=== PATIENT | male | born 1960 | race African-American/Black ===

== ENCOUNTER 2019-07-25 22:10 | Inpatient (IN) ==
[2019-07-25] MEDS ORDERED: DEXAMETHASONE **PF** INJ 10 MG/ML VIAL IV ONE (22:24)
[2019-07-25] MEDS ORDERED: ALBUT/IPRATROP 3MG/0.5MG NEB 3 ML VIAL NEB STA (22:24)
[2019-07-25] MEDS ORDERED: SODIUM CHLORIDE 0.9% 1000ML 1,000 ML IV ONE (22:26)
[2019-07-25] MEDS ORDERED: PIPERACILL/TAZOBAC CONSULT ACTIVE PRN (22:42)
[2019-07-25] MEDS ORDERED: SODIUM CHLORIDE 0.9% 1000ML 500 ML IV ONE (22:42)
[2019-07-25] MEDS ORDERED: PIPERACILLIN/TAZOBACTAM 4.5 GM/120 ML BAG IV ONE (22:42)
--- NOTE | 2019-07-25 22:43 | XRay Report ---
XR chest 1V portable HISTORY: 58 years-old Male Sepsis acute sepsis COMPARISON: None available TECHNIQUE: Portable AP view of the chest FINDINGS: Cardiac silhouette is mildly enlarged. Diffuse mixed interstitial and alveolar opacities with probabl e trace pleural effusions. No pneumothorax. Degenerative changes of the shoulders and spine. IMPRESSION: 1. Cardiomegaly with diffuse bilateral mixed interstitial and alveolar opacities suggests pulmonary e tunde versus multifocal pneumonia. 2. Probable trace pleural effusions. ACT 112: Negative or not required by law. The above report was generated using voice recognition software. It may contain grammatical, syntax o r spelling errors. Electronically signed by: Chung Mi M.D. 07/25/2019 10:42 PM
[2019-07-25 23:00] LABS: iSTAT Creatinine 2.7 mg/dl (0.6-1.3); iSTAT Hemoglobin 14.6 g/dl (14.0-18.0); iSTAT Ionized Calcium 1.06 mmol/l (1.12-1.32); iSTAT Potassium 4.1 mEq/L (3.3-5.0)
[2019-07-25 23:00] LABS: Basophils # (auto) 0.01 K/uL (0-0.2); Basophils % (auto) 0.1 %; Eosinophils # (auto) 0.03 K/uL (0-0.5); Eosinophils % (auto) 0.3 %; Hematocrit (blood only) 43.2 % (42-52); Hemoglobin 14.8 g/dL (14.0-18.0); Immature Granulocytes # (auto) 0.02 K/uL (0.00-0.02); Immature Granulocytes % (auto) 0.2 %; Lymphocytes # (auto) 1.06 K/uL (1.2-3.4); Lymphocytes % (auto) 10.1 %; Mean Corpuscular Hgb Conc 34.3 g/dL (32-36); Mean Corpuscular Volume 84.7 fL (80-100); Mean Platelet Volume 11.3 fL (7.4-10.4); Monocytes # (auto) 1.02 K/uL (0.11-0.59); Monocytes % (auto) 9.8 %; Neutrophils # (auto) 8.32 K/uL (1.4-6.5); Neutrophils % (auto) 79.5 %; Platelet Count 225 K/uL (130-400); RDW Coefficient of Variation 14.9 % (11.5-14.5); RDW Standard Deviation 46.1 fL (36.4-46.3); White Blood Count 10.46 K/uL (4.8-10.8)
[2019-07-25 23:10] LABS: INR 1.1 (0.9-1.1); Partial Thromboplastin Ratio 0.8; Partial Thromboplastin Time 22.9 Seconds (21.0-31.0); Prothrombin Time 10.8 Seconds (9.0-12.0)
[2019-07-25 23:14] LABS: Albumin Level 3.6 gm/dl (3.4-5.0); BUN Creatinine Ratio 8.2 (10-20); Creatinine Clr Calc Pharmacy 32.9 ml/min; Est GFR (African American) 27.9; Est GFR (Non-African American) 24.1; Magnesium 2.1 mg/dl (1.8-2.4)
--- NOTE | 2019-07-25 23:19 | Emergency Department Note ---
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 This has improved. Patient states a few years ago he had an episode of sarcoidosis and had breathing problems but not this severe. Patient has been coughing more. Patient denies fever, chills, abdominal pain, history of PE or heart attack. He states his legs have been feeling more tight lately. Patient denies tobacco alcohol or drug use. Home Medications Home Medications Medication Instructions Recorded Confirmed Type bvvadrkboqs-bqzrsiqaogh-apduij 0 ea PO DIRECTED PRN 07/25/19 07/25/19 History [Patito-Cranfills Gap Plus Cold (PE)] dextromethorphan-guaifenesin 10 ml PO DIRECTED PRN 07/25/19 07/25/19 History [Robitussin Cough-Chest [place] DM] Allergies Allergy/AdvReac Type Severity Reaction Status Date / Time No Known Allergies Allergy Verified 07/25/19 22:39 Past Med/Surg History Social History Feels Safe at Home: Yes Smoking Status: Never smoker Review of Systems A total of 10 systems reviewed and were otherwise negative Physical Exam Vital Signs Vital Signs - 24 hr 07/25/19 22:19 07/25/19 22:23 07/25/19 22:26 Temperature 36.7 C Temperature Source Oral Pulse Rate 119 H 118 H 111 H Pulse Rate [Finger] Pulse Rate from SpO2 Sensor 116 H Respiratory Rate 42 H 23 Respiratory Effort / Characteristics Spontaneous Accessory Muscle Use Labored Short of Breath SOB on Exertion Tripoding Accessory Muscle Use Gasping/Agonal Labored Respiratory Depth Shallow Respiratory Pattern Tachypnea Blood Pressure 191/117 H Blood Pressure Mean 141 Pulse Oximetry 63 L 91 93 Oxygen Delivery Method Room Air Non-rebreather Oxygen Flow Rate 15 Sepsis Recent Fever Within 48 Hours No Sepsis Action Taken by Nursing No Action Required 07/25/19 22:30 07/25/19 22:31 07/25/19 22:38 Temperature Temperature Source Pulse Rate 116 H 112 H Pulse Rate [Finger] 113 H Pulse Rate from SpO2 Sensor 116 H 113 H Respiratory Rate 29 H 32 H 32 H Respiratory Effort / Characteristics Spontaneous Short of Breath Respiratory Depth Respiratory Pattern Blood Pressure 168/107 H Blood Pressure Mean 133 Pulse Oximetry 90 89 L 95 Oxygen Delivery Method Non-rebreather Oxygen Flow Rate 15 Sepsis Recent Fever Within 48 Hours Sepsis Action Taken by Nursing 07/25/19 22:45 07/25/19 23:08 07/25/19 23:10 Temperature Temperature Source Pulse Rate 108 H 115 H Pulse Rate [Finger] Pulse Rate from SpO2 Sensor 109 H 122 H 110 H Respiratory Rate 38 H 34 H Respiratory Effort / Characteristics Respiratory Depth Respiratory Pattern Blood Pressure 202/120 H Blood Pressure Mean 142 Pulse Oximetry 93 84 L 92 Oxygen Delivery Method Oxymask Oxygen Flow Rate 10 Sepsis Recent Fever Within 48 Hours Sepsis Action Taken by Nursing 07/25/19 23:15 07/25/19 23:16 07/25/19 23:17 Temperature Temperature Source Pulse Rate 109 H 106 H 107 H Pulse Rate [Finger] Pulse Rate from SpO2 Sensor 109 H 105 H 106 H Respiratory Rate 25 H 43 H 25 H Respiratory Effort / Characteristics Respiratory Depth Respiratory Pattern Blood Pressure 186/109 H Blood Pressure Mean 131 Pulse Oximetry 94 94 94 Oxygen Delivery Method Oxymask Oxymask Oxygen Flow Rate 10 10 Sepsis Recent Fever Within 48 Hours Sepsis Action Taken by Nursing 07/25/19 23:19 07/25/19 23:30 07/25/19 23:31 Temperature Temperature Source Pulse Rate 109 H 109 H Pulse Rate [Finger] Pulse Rate from SpO2 Sensor 110 H 107 H Respiratory Rate 39 H 39 H Respiratory Effort / Characteristics Respiratory Depth Respiratory Pattern Blood Pressure 199/123 H Blood Pressure Mean 140 Pulse Oximetry 94 94 93 Oxygen Delivery Method Oxymask Oxygen Flow Rate 10 Sepsis Recent Fever Within 48 Hours Sepsis Action Taken by Nursing 07/25/19 23:50 07/26/19 00:00 07/26/19 00:15 Temperature Temperature Source Pulse Rate 110 H Pulse Rate [Finger] Pulse Rate from SpO2 Sensor 110 H 102 H 96 H Respiratory Rate 28 H 38 H 22 Respiratory Effort / Characteristics Respiratory Depth Respiratory Pattern Blood Pressure Blood Pressure Mean Pulse Oximetry 88 L 93 94 Oxygen Delivery Method Oxygen Flow Rate Sepsis Recent Fever Within 48 Hours Sepsis Action Taken by Nursing 07/26/19 00:20 12/30/19 00:30 07/26/19 00:46 Temperature Temperature Source Pulse Rate 100 H 98 H Pulse Rate [Finger] Pulse Rate from SpO2 Sensor 101 H 102 H 99 H Respiratory Rate 18 27 H 25 H Respiratory Effort / Characteristics Respiratory Depth Respiratory Pattern Blood Pressure 169/107 H 178/106 H 196/116 H Blood Pressure Mean 123 124 138 Pulse Oximetry 93 91 93 Oxygen Delivery Method Oxymask Oxymask Oxygen Flow Rate 10 10 Sepsis Recent Fever Within 48 Hours Sepsis Action Taken by Nursing 07/26/19 01:00 07/26/19 01:15 Temperature Temperature Source Pulse Rate 88 87 Pulse Rate [Finger] Pulse Rate from SpO2 Sensor 89 88 Respiratory Rate 33 H 33 H Respiratory Effort / Characteristics Respiratory Depth Respiratory Pattern Blood Pressure 170/103 H 179/107 H Blood Pressure Mean 116 119 Pulse Oximetry 95 93 Oxygen Delivery Method Oxymask Oxymask Oxygen Flow Rate 10 10 Sepsis Recent Fever Within 48 Hours Sepsis Action Taken by Nursing VITALS: Vitals are noted on the nurse's note and reviewed by myself. Vital signs sats in the 60s. GENERAL: Male working to breathe in acute distress SKIN: The skin was without rashes, erythema, edema, or bruising. There is no tenting of the skin. Capillary reflex less than 2 seconds. HEAD: Normocephalic atraumatic. EARS: External auditory canals clear, tympanic membranes pearly mars without erythema or effusion bilaterally. EYES: Pupils equal round and reactive to light and accommodation. Conjunctivae without injection, sclerae without icterus. Extraocular movements intact. NOSE: Patent, turbinates without inflammation or discharge. No sinus te nderness. MOUTH: Mucous membranes mildly dry. Pharynx without erythema or exudate. Uvula midline. Airway patent. Tongue does not deviate. NECK: Supple without nuchal rigidity. No lymphadenopathy. No thyromegaly. Cervical spine is nontender. No JVD. HEART: Tachycardic rate and rhythm LUNGS: Diffuse inspiratory and end expiratory wheezes, + retractions + accessory muscle use. ABDOMEN: Positive bowel sounds x 4. Normal tympanic percussion. Soft, nontender, without masses or organomegaly. Reid sign negative. No guarding or rebound tenderness. No CVA tenderness MUSCULOSKELETAL: No muscle atrophy, erythema, or edema noted. NEURO: Patient was alert and oriented to person place and time. Normal sensation to light and sharp touch. No focal neurological deficits. Course Administered Medications Discontinued Medications Albuterol (Duoneb) 3 ml NEB NOW STA Stop: 07/25/19 22:25 Last Admin: 07/25/19 22:38 Dose: 3 ml Documented by: [id number] Dexamethasone Sodium Phosphate (Decadron Pf) 10 mg IV NOW ONE Stop: 07/25/19 22:25 Last Admin: 07/25/19 22:35 Dose: 10 mg Documented by: [id number] Sodium Chloride (Nss 1000ml) 1,000 mls @ 999 mls/hr IV .Q1H1M ONE Stop: 07/25/19 23:26 Last Admin: 07/26/19 00:08 Dose: Not Given Documented by: [id number] Sodium Chloride (Nss 1000ml) 500 mls @ 999 mls/hr IV .Q31M ONE Stop: 07/25/19 23:12 Last Infusion: 07/26/19 00:07 Dose: 0 mls/hr Documented by: [id number] Admin: 07/25/19 23:13 Dose: 999 mls/hr Documented by: [id number] Piperacillin Sod/Tazobactam Sod (Zosyn) 4.5 gm in 120 mls @ 240 mls/hr IV NOW ONE Stop: 07/25/19 23:11 Last Infusion: 07/26/19 00:07 Dose: 0 mls/hr Documented by: [id number] Admin: 07/25/19 23:26 Dose: 240 mls/hr Documented by: [id number] Critical Care Time Critical Care Time: Yes Total Critical Care Time: 30 I have personally spent greater than 30 minutes of critical care time in the direct management of this patient. This includes bedside care, interpretation of diagnostic studies, and testing, discussion with consultants, patient, and family members, and other required patient management activities. This 30 minutes is in excess of all separately billable procedures. Medical Decision Making Medical Records Attestation: I reviewed the patient's medical records. Home Medications Current Medication List: was personally reviewed by me Laboratory Data Attestation: I reviewed the patient's lab results. Result diagrams: 07/25/19 22:35 07/25/19 22:35 Lab Results 07/25/19 07/25/19 07/25/19 Range/Units 22:35 22:35 22:35 WBC 10.46 (4.8-10.8) K/uL RBC 5.10 (4.7-6.1) M/uL Hgb 14.8 (14.0-18.0) g/dL POC Hgb (14.0-18.0) g/dl Hct 43.2 (42-52) % POC Hct (42-52) % MCV 84.7 (80-100) fL MCH 29.0 (25-34) pg MCHC 34.3 (32-36) g/dL RDW Std Deviation 46.1 (36.4-46.3) fL RDW Coeff of Tal 14.9 H (11.5-14.5) % Plt Count 225 (130-400) K/uL MPV 11.3 H (7.4-10.4) fL Immature Gran % (Auto) 0.2 % Neut % (Auto) 79.5 % Lymph % (Auto) 10.1 % Barnwell % (Auto) 9.8 % Eos % (Auto) 0.3 % Baso % (Auto) 0.1 % Immature Gran # (Auto) 0.02 (0.00-0.02) K/uL Neut # (Auto) 8.32 H (1.4-6.5) K/uL Lymph # (Auto) 1.06 L (1.2-3.4) K/uL Barnwell # (Auto) 1.02 H (0.11-0.59) K/uL Eos # (Auto) 0.03 (0-0.5) K/uL Baso # (Auto) 0.01 (0-0.2) K/uL PT 10.8 (9.0-12.0) Seconds INR 1.1 (0.9-1.1) APTT 22.9 (21.0-31.0) Seconds PTT Ratio 0.8 ABG pH ABG pCO2 ABG pO2 ABG HCO3 ABG O2 Saturation ABG Base Excess Alexx Test Barometric Pressure Oxygen Given POC Sodium (135-144) mEq/L Sodium 145 (136-145) mmol/L POC Potassium (3.3-5.0) mEq/L Potassium 4.0 (3.5-5.1) mmol/L POC Chloride (101-112) mEq/L Chloride 113 H (98-107) mmol/L Carbon Dioxide 21 (21-32) mmol/L POC Total CO2 (24-31) mEq/l Anion Gap 11.0 (3-11) POC Anion Gap (16-25) mmol/L POC BUN (7-18) mg/dl BUN 23 H (7-18) mg/dl Creatinine 2.79 H (0.6-1.4) mg/dl POC Creatinine (0.6-1.3) mg/dl Est Cr Clr Drug Dosing 32.9 ml/min Est GFR ( Amer) 27.9 Est GFR (Non-Af Amer) 24.1 BUN/Creatinine Ratio 8.2 L (10-20) Glucose 134 H (70-99) mg/dl POC Glucose (other) (70-99) mg/dl POC Lactic Acid Néstor (0.90-1.70) mmol/L Calcium 9.0 (8.5-10.1) mg/dl POC Ioniz Calcium Tata (1.12-1.32) mmol/l Magnesium 2.1 (1.8-2.4) mg/dl Total Bilirubin 0.9 (0.2-1) mg/dl AST 31 (15-37) U/L ALT 57 (12-78) U/L Alkaline Phosphatase 100 (45-117) U/L Total Creatine Kinase 194 (39-308) U/L Troponin I 0.059 H* (0-0.045) ng/ml NT-Pro-B Natriuret Pep 2302 H (0-900) pg/ml Total Protein 8.1 (6.4-8.2) gm/dl Albumin 3.6 (3.4-5.0) gm/dl Globulin 4.5 H (2.5-4.0) gm/dl Albumin/Globulin Ratio 0.8 L (0.9-2) Specimen Hemolysis IgG 1160.0 (700-1600) mg/dl IgA 193.0 (70-400) mg/dl IgM 147.0 (40-230) mg/dl Influenza Type A (PCR) (Neg) Influenza Type B (PCR) (Neg) 07/25/19 07/25/19 07/25/19 Range/Units 22:42 22:47 23:25 WBC (4.8-10.8) K/uL RBC (4.7-6.1) M/uL Hgb (14.0-18.0) g/dL POC Hgb 14.6 (14.0-18.0) g/dl Hct (42-52) % POC Hct 43 (42-52) % MCV (80-100) fL MCH (25-34) pg MCHC (32-36) g/dL RDW Std Deviation (36.4-46.3) fL RDW Coeff of Tal (11.5-14.5) % Plt Count (130-400) K/uL MPV (7.4-10.4) fL Immature Gran % (Auto) % Neut % (Auto) % Lymph % (Auto) % Barnwell % (Auto) % Eos % (Auto) % Baso % (Auto) % Immature Gran # (Auto) (0.00-0.02) K/uL Neut # (Auto) (1.4-6.5) K/uL Lymph # (Auto) (1.2-3.4) K/uL Barnwell # (Auto) (0.11-0.59) K/uL Eos # (Auto) (0-0.5) K/uL Baso # (Auto) (0-0.2) K/uL PT (9.0-12.0) Seconds INR (0.9-1.1) APTT (21.0-31.0) Seconds PTT Ratio ABG pH Cancelled ABG pCO2 Cancelled ABG pO2 Cancelled ABG HCO3 Cancelled ABG O2 Saturation Cancelled ABG Base Excess Cancelled Alexx Test Cancelled Barometric Pressure Cancelled Oxygen Given Cancelled POC Sodium 146 H (135-144) mEq/L Sodium (136-145) mmol/L POC Potassium 4.1 (3.3-5.0) mEq/L Potassium (3.5-5.1) mmol/L POC Chloride 115 H (101-112) mEq/L Chloride (98-107) mmol/L Carbon Dioxide (21-32) mmol/L POC Total CO2 21 L (24-31) mEq/l Anion Gap (3-11) POC Anion Gap 15.0 L (16-25) mmol/L POC BUN 27 H (7-18) mg/dl BUN (7-18) mg/dl Creatinine (0.6-1.4) mg/dl POC Creatinine 2.7 H (0.6-1.3) mg/dl Est Cr Clr Drug Dosing ml/min Est GFR ( Amer) Est GFR (Non-Af Amer) BUN/Creatinine Ratio (10-20) Glucose (70-99) mg/dl POC Glucose (other) 130 H (70-99) mg/dl POC Lactic Acid Néstor 2.28 H (0.90-1.70) mmol/L Calcium (8.5-10.1) mg/dl POC Ioniz Calcium Tata 1.06 L (1.12-1.32) mmol/l Magnesium (1.8-2.4) mg/dl Total Bilirubin (0.2-1) mg/dl AST (15-37) U/L ALT (12-78) U/L Alkaline Phosphatase (45-117) U/L Total Creatine Kinase (39-308) U/L Troponin I (0-0.045) ng/ml NT-Pro-B Natriuret Pep (0-900) pg/ml Total Protein (6.4-8.2) gm/dl Albumin (3.4-5.0) gm/dl Globulin (2.5-4.0) gm/dl Albumin/Globulin Ratio (0.9-2) Specimen Hemolysis IgG (700-1600) mg/dl IgA (70-400) mg/dl IgM (40-230) mg/dl Influenza Type A (PCR) (Neg) Influenza Type B (PCR) (Neg) 07/25/19 07/26/19 Range/Units Unknown 00:16 WBC (4.8-10.8) K/uL RBC (4.7-6.1) M/uL Hgb (14.0-18.0) g/dL POC Hgb (14.0-18.0) g/dl Hct (42-52) % POC Hct (42-52) % MCV (80-100) fL MCH (25-34) pg MCHC (32-36) g/dL RDW Std Deviation (36.4-46.3) fL RDW Coeff of Tal (11.5-14.5) % Plt Count (130-400) K/uL MPV (7.4-10.4) fL Immature Gran % (Auto) % Neut % (Auto) % Lymph % (Auto) % Barnwell % (Auto) % Eos % (Auto) % Baso % (Auto) % Immature Gran # (Auto) (0.00-0.02) K/uL Neut # (Auto) (1.4-6.5) K/uL Lymph # (Auto) (1.2-3.4) K/uL Barnwell # (Auto) (0.11-0.59) K/uL Eos # (Auto) (0-0.5) K/uL Baso # (Auto) (0-0.2) K/uL PT (9.0-12.0) Seconds INR (0.9-1.1) APTT (21.0-31.0) Seconds PTT Ratio ABG pH 7.50 H ABG pCO2 28 L ABG pO2 70 L ABG HCO3 22 ABG O2 Saturation 95.0 ABG Base Excess -0.4 Alexx Test Pos Barometric Pressure Oxygen Given 10L POC Sodium (135-144) mEq/L Sodium (136-145) mmol/L POC Potassium (3.3-5.0) mEq/L Potassium (3.5-5.1) mmol/L POC Chloride (101-112) mEq/L Chloride (98-107) mmol/L Carbon Dioxide (21-32) mmol/L POC Total CO2 (24-31) mEq/l Anion Gap (3-11) POC Anion Gap (16-25) mmol/L POC BUN (7-18) mg/dl BUN (7-18) mg/dl Creatinine (0.6-1.4) mg/dl POC Creatinine (0.6-1.3) mg/dl Est Cr Clr Drug Dosing ml/min Est GFR ( Amer) Est GFR (Non-Af Amer) BUN/Creatinine Ratio (10-20) Glucose (70-99) mg/dl POC Glucose (other) (70-99) mg/dl POC Lactic Acid Néstor (0.90-1.70) mmol/L Calcium (8.5-10.1) mg/dl POC Ioniz Calcium Tata (1.12-1.32) mmol/l Magnesium (1.8-2.4) mg/dl Total Bilirubin (0.2-1) mg/dl AST (15-37) U/L ALT (12-78) U/L Alkaline Phosphatase (45-117) U/L Total Creatine Kinase (39-308) U/L Troponin I (0-0.045) ng/ml NT-Pro-B Natriuret Pep (0-900) pg/ml Total Protein (6.4-8.2) gm/dl Albumin (3.4-5.0) gm/dl Globulin (2.5-4.0) gm/dl Albumin/Globulin Ratio (0.9-2) Specimen Hemolysis IgG (700-1600) mg/dl IgA (70-400) mg/dl IgM (40-230) mg/dl Influenza Type A (PCR) Neg for Influ A (Neg) Influenza Type B (PCR) Neg for Influ B (Neg) Imaging Data Attestation: I personally reviewed and interpreted this imaging study as follows: MDM Narrative Prior records/ancillary studies reviewed. Triage Nursing notes reviewed. The patient's history was concerning for respiratory difficulties. Differential diagnosis: Etiologies such as infections, reactive airway disease, pneumonia, pneumothorax, COPD, CHF, cardiac ischemia, pulmonary embolism, musculoskeletal, gastrointestinal, as well as others were entertained. Physical examination: As above. ER treatment provided: Nebulizer, steroids, 2 IV lines, Zosyn On reassessment the patient felt better. Diagnostic interpretation by me: The electrocardiogram was ordered for dyspnea EKG: Poor baseline, normal sinus, no acute ST-T wave changes, rate of 112. Impression sinus tachycardia interpreted by myself I think arrhythmia is unlikely. EKG shows normal sinus rhythm with no interval abnormalities such as QT prolongation or WPW. There are no findings to suggest Brugada syndrome. Cardiac monitoring in the emergency department reveals no tachycardic or bradycardic dysrhythmia. Hypertrophic cardiomyopathy was considered but there are no clear historical elements pointing toward this. EKG is not suggestive. The QRS voltage is not extremely large and there are no suggestive Q waves. Repeat EKG was normal sinus, normal intervals, no acute ST-T wave changes. Impression normal sinus with interpreted by myself The labs revealed no leukocytosis, elevated lactic acid, creatinine 2.7 Blood cultures pending Elevated troponin Imaging studies: XR chest 1V portable HISTORY: 58 years-old Male Sepsis acute sepsis COMPARISON: None available TECHNIQUE: Portable AP view of the chest FINDINGS: Cardiac silhouette is mildly enlarged. Diffuse mixed interstitial and alveolar opacities with probable trace pleural effusions. No pneumothorax. Degenerative c hanges of the shoulders and spine. IMPRESSION: 1. Cardiomegaly with diffuse bilateral mixed interstitial and alveolar opacities suggests pulmonary edema versus multifocal pneumonia. 2. Probable trace pleural effusions. ACT 112: Negative or not required by law. The above report was generated using voice recognition software. It may contain grammatical, syntax or spelling errors. Electronically signed by: Chung Mi M.D. 07/25/2019 10:[address] CHEST Without Contrast: Multifocal airspace disease involving all lobes with areas of nodularity including a cavitating focus in the left upper lobe measuring 1.4 cm. Differential includes multifocal infection, malignancy, and less likely septic emboli. Mildly prominent mediastinal lymph nodes. Radiologist: Lalo Carter MD CURB Score: Confusion: 0 Urea (BUN > 19): 1 Respiratory Rate (>30/min): 1 Blood Pressure: Diastolic <60 or Systolic <90 0 Age (>= 65) 0 Total (0-1 low risk, 2-5 high risk): 2 DRIP Score: Characteristic: (Major) Anbx w/in 60 days (2): 2 Reseidence in a [facility] care (2): 0 Tube feeding (2):0 Prior infx w/ drug resistant PNA (2): 0 (Minor) Hosp w/in 60 days (1):1 Chronic Pulm dx (1):0 poor functional status (1):0 use of H2/PPI last 2 weeks (1): 0 Wound care (1):0 MRSA w/in 1 year (1):0 Total (greater than 4 needs broad spectrum):3 Consultation: A consultation was placed with Dr. Gonzalez, hospitalist. The case was discussed and diagnostics were reviewed. The patient was evaluated in the ER for further treatment. This appears to be consistent with multifocal pneumonia with acute respiratory distress and hypoxemia. Patient was placed in isolation after reviewing the CAT scan. Patient states he was checked for TB a few years ago and was negative. Patient was immediately started on oxygen and nebulizers and steroids. 2 lines were placed. Patient felt better after being medicated. He was given broad- spectrum antibiotics. He has had recent antibiotics. He is agreeable treatment plan of admission. He was reassessed multiple times. Vitals did improve. By the evaluation outlined above emergent etiologies such as CHF, reactive airway disease, pneumothorax, musculoskeletal, as well as others were deemed relatively unlikely. The pt informed about the findings as listed above. All questions were answered and pleased with the treatment. Case reviewed with my attending The chart was completed utilizing [employer] Speech voice recognition software. Grammatical errors, random word insertions, pronoun errors, and incomplete sentences are an occassional consequence of this system due to software limitations, ambient noise, and hardware issues. Any formal questions or concerns about the content, text, or information contained within the body of this dictation should be directly addressed to the physician preschool teacher assistant for clarification. Impression & Plan Multifocal pneumonia, Elevated troponin, Acute kidney injury, Hypoxic Discharge Plan Visit Data Chief Complaint: Respiratory Problems Stated Complaint: COUGH, SOB ED Provider: Amando Bains ED Midlevel Provider: Iraida Reyes Discharge Problem: Multifocal pneumonia, Elevated troponin, Acute kidney injury, Hypoxic Patient Disposition: Admitted As Inpatient Condition: Fair Forms Stand Alone Forms: [facility] Prescriptions Prescriptions: No Action Robitussin Cough-Chest [place] DM 5-100 mg/5 mL Liquid 10 ml PO DIRECTED PRN (Reason: Cold Symptoms) RF: 0 Patito-[place] Plus Cold (PE) 2-7.8-325 mg Tablet, Effervescent 0 ea PO DIRECTED PRN (Reason: Cold Symptoms) RF: 0 Referrals Referrals: PCP,NO [Primary Care Provider] -
[2019-07-25 23:24] LABS: Albumin Globulin Ratio 0.8 (0.9-2); Bilirubin,Total 0.9 mg/dl (0.2-1); Globulin 4.5 gm/dl (2.5-4.0); Total Protein 8.1 gm/dl (6.4-8.2); Troponin I 0.059 ng/ml (0-0.045)
[2019-07-25 23:27] LABS: Influenza A virus by PCR Neg for Influ A (Neg); Influenza B virus by PCR Neg for Influ B (Neg)
[2019-07-26 00:26] LABS: Allen Test Pos (Pos); Base Excess ABG -0.4 mEq/L (-9-1.8); HCO3 ABG 22 mmol/L (19-24); PCO2 ABG 28 mmHg (35-46); PO2 ABG 70 mm/Hg (80-95)
[2019-07-26] MEDS ORDERED: SODIUM CHLORIDE 0.9% 500 ML IV SCH (01:00)
--- NOTE | 2019-07-26 01:04 | History & Physical Report ---
Date of Service July 26, 2019 Assessment & Plan (1) Multifocal pneumonia: 58-year-old male with past medical history of sarcoidosis here with multifocal pneumonia and hypoxia. Multifocal pneumonia with possible cavitary lesion -As seen on chest CT without contrast. States he does have a history of sarcoidosis and was told by his physician he has left lung scarring that will likely never resolve. -Nevertheless given his new oxygen requirement and history, will empirically treat with vancomycin and Zosyn. MRSA nares are pending. -Consult pulmonology, consider bronchoscopy. -pt has dry cough, however have placed order for sputum culture. Await pulmonology recommendations regarding AFB smear. -Does not quite meet sepsis criteria however he is tachycardic which is likely physiologic in the setting of an acute illness, antibiotics as above. Continue aggressive fluid hydration. -Oxygen as needed, currently on 10 L via oxymask. -scheduled duonebs, and PRN. FEN/GI: NPO pending pulmonary consult ?bronchoscopy. Fluids running at maintenance. DVT ppx: SCDs CODE STATUS: FULL DISPO: Tele (2) Hypoxic: 63% on room air, now improved to 93% with oxymask. -ABG shows respiratory alkalosis -Continue to monitor (3) Elevated troponin: No personal history of heart attack or stroke, EKG without ST changes shows sinus tachycardia. -We will trend troponins -Echo in the a.m. (4) Acute kidney injury: States he has been taking Natividad-Yellow Jacket for the past several days for his symptoms. -Creatinine 2.79 on admission. -Fluid hydration. -Avoid nephrotoxic agents. -follow BMP (5) Sarcoidosis: Per the patient, was diagnosed by bronchoscopy 2 years ago at outside hospital. Patient is currently on no chronic medications. (6) Prostatitis: Just finished antibiotic course for 7 days. Originally with urinary retention symptoms, now with polyuria. Urine analysis is pending. 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 CT scan of the chest was done without contrast, and pt has KRISTINA. -Will check venous Dopplers of lower extremities bilaterally. I doubt respir atory symptoms are secondary to a pulmonary embolus, however needs to remain on differential if clinically not improving. 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 He states he began having cold symptoms since July 22 which initially began with subjective fevers and chills then progressed to a dry cough. He also complains of worsening exertional dyspnea, can't perform his usual work duties like unloading the truck, and states he had to take 2 breaks while walking from his truck to the front door here in the parking lot tonight. This is unusual for him. He has been self medicating with robitussin and natividad selzer. Past medical history significant for a diagnosis of sarcoidosis about 2 years ago which was incidentally found after a bronchoscopy in an outside hospital while he was admitted for pneumonia. His PCP is Dr. Quezada in [facility] and he has follow-up scheduled with him on August 05. He does not follow with a bath mix operator. He does not take any chronic medications although recently was diagnosed with prostatitis and what sounds like urinary retention and prescribed an antibiotic and possibly Flomax. He is finished his antibiotic and notes his urination is now very brisk and he is urinating once an hour. He also complains of bilateral lower extremity swelling which has improved since being here in the ED for several hours. He denies any lower extremity pain. He denies any personal history of clots. Endorses chest tightness, polyuria, subjective fevers, bilateral leg swelling, but denies chest pain, abdominal pain, loose stools, or dysuria. Denies recent exotic travel. Past medical history: Sarcoidosis diagnosed 2 years ago by bronchoscopy at outside hospital. Past surgical history: Denies Family history: Significant for multiple female family members with breast cance r. Denies family history of kidney disease, heart disease, or stroke. 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 He resides in [place] with his and son. He is a never smoker, denies alcohol or drug use. ED course: DuoNeb, Decadron, fluid boluses and Zosyn begun. 10 L on oxygen mask. Allergies Allergy/AdvReac Type Severity Reaction Status Date / Time No Known Allergies Allergy Verified 07/25/19 22:39 Home Medications Home Medications Medication Instructions Recorded Confirmed Type dxhocfmcbmg-slmrdzggqlk-nvawat 0 ea PO DIRECTED PRN 07/25/19 07/25/19 History [Natividad-Yellow Jacket Plus Cold (PE)] dextromethorphan-guaifenesin 10 ml PO DIRECTED PRN 07/25/19 07/25/19 History [Robitussin Cough-Chest [place] DM] Past Med/Surg History Social History Feels Safe at Home: Yes Smoking Status: Never smoker Review of Systems Review of Systems: All systems reviewed & are unremarkable except as noted in HPI & below (Endorses chest tightness, polyuria, subjective fevers, bilateral leg swelling, but denies chest pain, abdominal pain, loose stools, or dysuria. ) Physical Exam Physical Exam: Vitals noted and within normal limits with the exception of elevated blood pressure 169/107, elevated pulse 110, oxygenating 93% on 10 L via oxymask. GENERAL: Awake, alert to person, place, and time, nontoxic-appearing, in no distress. HENT: Normocephalic, atraumatic. Oxymask in place. Mucus membranes appear dry. EYES: Normal conjunctiva. Sclera non-icteric. EOMI. NECK: Supple. Full range of motion. No JVD. RESPIRATORY: Diffuse crackles and wheezing bilaterally. Increased work of breathing. Able to speak in full sentences. CARDIAC: Sinus tachycardia. Extremities warm and well perfused, ABDOMEN: Soft, non-distended. No tenderness to palpation in all four quadrants. No rebound or guarding. No masses. Bowel sounds are normal. No CVA tenderness. LOWER EXTREMITIES: Inspection of calves reveal equal size bilaterally. They are non-tender. Trace edema. No discoloration. NEURO: No gross focal motor deficits noted. Sensation in tact. CN II-XII grossly in tact. . SKIN: Rash not present. No jaundice noted. Significant lesions not present. PSYCH: Appropriate mood and affect. Cooperative. Exam as done by Anni Thomas MD, Mainframe Systems Engineer. Results & Data Vital Signs (Past 12 Hours) Vital Signs Temp Pulse Pulse Resp BP Pulse Ox 07/26/19 00:20 18 169/107 H 93 07/26/19 00:15 22 94 07/26/19 00:00 38 H 93 07/25/19 23:50 110 H 28 H 88 L 07/25/19 23:31 109 H 39 H 93 07/25/19 23:30 109 H 39 H 199/123 H 94 07/25/19 23:19 94 07/25/19 23:17 107 H 25 H 94 07/25/19 23:16 106 H 43 H 186/109 H 94 07/25/19 23:15 109 H 25 H 94 07/25/19 23:10 115 H 34 H 202/120 H 92 07/25/19 23:08 84 L 07/25/19 22:45 108 H 38 H 93 07/25/19 22:38 113 H 32 H 95 07/25/19 22:31 112 H 32 H 89 L 07/25/19 22:30 116 H 29 H 168/107 H 90 07/25/19 22:26 111 H 93 07/25/19 22:23 118 H 23 91 07/25/19 22:19 36.7 C 119 H 42 H 191/117 H 63 L Laboratory Results 07/26/19 07/25/19 07/25/19 Range/Units 00:16 Unknown 23:25 WBC (4.8-10.8) K/uL RBC (4.7-6.1) M/uL Hgb (14.0-18.0) g/dL POC Hgb (14.0-18.0) g/dl Hct (42-52) % POC Hct (42-52) % MCV (80-100) fL MCH (25-34) pg MCHC (32-36) g/dL RDW Std Deviation (36.4-46.3) fL RDW Coeff of Tal (11.5-14.5) % Plt Count (130-400) K/uL MPV (7.4-10.4) fL Immature Gran % (Auto) % Neut % (Auto) % Lymph % (Auto) % Woodson % (Auto) % Eos % (Auto) % Baso % (Auto) % Immature Gran # (Auto) (0.00-0.02) K/uL Neut # (Auto) (1.4-6.5) K/uL Lymph # (Auto) (1.2-3.4) K/uL Woodson # (Auto) (0.11-0.59) K/uL Eos # (Auto) (0-0.5) K/uL Baso # (Auto) (0-0.2) K/uL PT (9.0-12.0) Seconds INR (0.9-1.1) APTT (21.0-31.0) Seconds PTT Ratio ABG pH 7.50 H Cancelled ABG pCO2 28 L Cancelled ABG pO2 70 L Cancelled ABG HCO3 22 Cancelled ABG O2 Saturation 95.0 Cancelled ABG Base Excess -0.4 Cancelled Alexx Test Pos Cancelled Barometric Pressure Cancelled Oxygen Given 10L Cancelled POC Sodium (135-144) mEq/L Sodium (136-145) mmol/L POC Potassium (3.3-5.0) mEq/L Potassium (3.5-5.1) mmol/L POC Chloride (101-112) mEq/L Chloride (98-107) mmol/L Carbon Dioxide (21-32) mmol/L POC Total CO2 (24-31) mEq/l Anion Gap (3-11) POC Anion Gap (16-25) mmol/L POC BUN (7-18) mg/dl BUN (7-18) mg/dl Creatinine (0.6-1.4) mg/dl POC Creatinine (0.6-1.3) mg/dl Est Cr Clr Drug Dosing ml/min Est GFR ( Amer) Est GFR (Non-Af Amer) BUN/Creatinine Ratio (10-20) Glucose (70-99) mg/dl POC Glucose (other) (70-99) mg/dl POC Lactic Acid Néstor (0.90-1.70) mmol/L Calcium (8.5-10.1) mg/dl POC Ioniz Calcium Tata (1.12-1.32) mmol/l Magnesium (1.8-2.4) mg/dl Total Bilirubin (0.2-1) mg/dl AST (15-37) U/L ALT (12-78) U/L Alkaline Phosphatase (45-117) U/L Total Creatine Kinase (39-308) U/L Troponin I (0-0.045) ng/ml NT-Pro-B Natriuret Pep (0-900) pg/ml Total Protein (6.4-8.2) gm/dl Albumin (3.4-5.0) gm/dl Globulin (2.5-4.0) gm/dl Albumin/Globulin Ratio (0.9-2) Specimen Hemolysis IgG (700-1600) mg/dl IgA (70-400) mg/dl IgM (40-230) mg/dl Influenza Type A (PCR) Neg for Influ A (Neg) Influenza Type B (PCR) Neg for Influ B (Neg) 07/25/19 07/25/19 07/25/19 Range/Units 22:47 22:42 22:35 WBC (4.8-10.8) K/uL RBC (4.7-6.1) M/uL Hgb (14.0-18.0) g/dL POC Hgb 14.6 (14.0-18.0) g/dl Hct (42-52) % POC Hct 43 (42-52) % MCV (80-100) fL MCH (25-34) pg MCHC (32-36) g/dL RDW Std Deviation (36.4-46.3) fL RDW Coeff of Tal (11.5-14.5) % Plt Count (130-400) K/uL MPV (7.4-10.4) fL Immature Gran % (Auto) % Neut % (Auto) % Lymph % (Auto) % Woodson % (Auto) % Eos % (Auto) % Baso % (Auto) % Immature Gran # (Auto) (0.00-0.02) K/uL Neut # (Auto) (1.4-6.5) K/uL Lymph # (Auto) (1.2-3.4) K/uL Woodson # (Auto) (0.11-0.59) K/uL Eos # (Auto) (0-0.5) K/uL Baso # (Auto) (0-0.2) K/uL PT (9.0-12.0) Seconds INR (0.9-1.1) APTT (21.0-31.0) Seconds PTT Ratio ABG pH ABG pCO2 ABG pO2 ABG HCO3 ABG O2 Saturation ABG Base Excess Alexx Test Barometric Pressure Oxygen Given POC Sodium 146 H (135-144) mEq/L Sodium 145 (136-145) mmol/L POC Potassium 4.1 (3.3-5.0) mEq/L Potassium 4.0 (3.5-5.1) mmol/L POC Chloride 115 H (101-112) mEq/L Chloride 113 H (98-107) mmol/L Carbon Dioxide 21 (21-32) mmol/L POC Total CO2 21 L (24-31) mEq/l Anion Gap 11.0 (3-11) POC Anion Gap 15.0 L (16-25) mmol/L POC BUN 27 H (7-18) mg/dl BUN 23 H (7-18) mg/dl Creatinine 2.79 H (0.6-1.4) mg/dl POC Creatinine 2.7 H (0.6-1.3) mg/dl Est Cr Clr Drug Dosing 32.9 ml/min Est GFR ( Amer) 27.9 Est GFR (Non-Af Amer) 24.1 BUN/Creatinine Ratio 8.2 L (10-20) Glucose 134 H (70-99) mg/dl POC Glucose (other) 130 H (70-99) mg/dl POC Lactic Acid Néstor 2.28 H (0.90-1.70) mmol/L Calcium 9.0 (8.5-10.1) mg/dl POC Ioniz Calcium Tata 1.06 L (1.12-1.32) mmol/l Magnesium 2.1 (1.8-2.4) mg/dl Total Bilirubin 0.9 (0.2-1) mg/dl AST 31 (15-37) U/L ALT 57 (12-78) U/L Alkaline Phosphatase 100 (45-117) U/L Total Creatine Kinase 194 (39-308) U/L Troponin I 0.059 H* (0-0.045) ng/ml NT-Pro-B Natriuret Pep 2302 H (0-900) pg/ml Total Protein 8.1 (6.4-8.2) gm/dl Albumin 3.6 (3.4-5.0) gm/dl Globulin 4.5 H (2.5-4.0) gm/dl Albumin/Globulin Ratio 0.8 L (0.9-2) Specimen Hemolysis IgG 1160.0 (700-1600) mg/dl IgA 193.0 (70-400) mg/dl IgM 147.0 (40-230) mg/dl Influenza Type A (PCR) (Neg) Influenza Type B (PCR) (Neg) 07/25/19 07/25/19 Range/Units 22:35 22:35 WBC 10.46 (4.8-10.8) K/uL RBC 5.10 (4.7-6.1) M/uL Hgb 14.8 (14.0-18.0) g/dL POC Hgb (14.0-18.0) g/dl Hct 43.2 (42-52) % POC Hct (42-52) % MCV 84.7 (80-100) fL MCH 29.0 (25-34) pg MCHC 34.3 (32-36) g/dL RDW Std Deviation 46.1 (36.4-46.3) fL RDW Coeff of Tal 14.9 H (11.5-14.5) % Plt Count 225 (130-400) K/uL MPV 11.3 H (7.4-10.4) fL Immature Gran % (Auto) 0.2 % Neut % (Auto) 79.5 % Lymph % (Auto) 10.1 % Woodson % (Auto) 9.8 % Eos % (Auto) 0.3 % Baso % (Auto) 0.1 % Immature Gran # (Auto) 0.02 (0.00-0.02) K/uL Neut # (Auto) 8.32 H (1.4-6.5) K/uL Lymph # (Auto) 1.06 L (1.2-3.4) K/uL Woodson # (Auto) 1.02 H (0.11-0.59) K/uL Eos # (Auto) 0.03 (0-0.5) K/uL Baso # (Auto) 0.01 (0-0.2) K/uL PT 10.8 (9.0-12.0) Seconds INR 1.1 (0.9-1.1) APTT 22.9 (21.0-31.0) Seconds PTT Ratio 0.8 ABG pH ABG pCO2 ABG pO2 ABG HCO3 ABG O2 Saturation ABG Base Excess Alexx Test Barometric Pressure Oxygen Given POC Sodium (135-144) mEq/L Sodium (136-145) mmol/L POC Potassium (3.3-5.0) mEq/L Potassium (3.5-5.1) mmol/L POC Chloride (101-112) mEq/L Chloride (98-107) mmol/L Carbon Dioxide (21-32) mmol/L POC Total CO2 (24-31) mEq/l Anion Gap (3-11) POC Anion Gap (16-25) mmol/L POC BUN (7-18) mg/dl BUN (7-18) mg/dl Creatinine (0.6-1.4) mg/dl POC Creatinine (0.6-1.3) mg/dl Est Cr Clr Drug Dosing ml/min Est GFR ( Amer) Est GFR (Non-Af Amer) BUN/Creatinine Ratio (10-20) Glucose (70-99) mg/dl POC Glucose (other) (70-99) mg/dl POC Lactic Acid Néstor (0.90-1.70) mmol/L Calcium (8.5-10.1) mg/dl POC Ioniz Calcium Tata (1.12-1.32) mmol/l Magnesium (1.8-2.4) mg/dl Total Bilirubin (0.2-1) mg/dl AST (15-37) U/L ALT (12-78) U/L Alkaline Phosphatase (45-117) U/L Total Creatine Kinase (39-308) U/L Troponin I (0-0.045) ng/ml NT-Pro-B Natriuret Pep (0-900) pg/ml Total Protein (6.4-8.2) gm/dl Albumin (3.4-5.0) gm/dl Globulin (2.5-4.0) gm/dl Albumin/Globulin Ratio (0.9-2) Specimen Hemolysis IgG (700-1600) mg/dl IgA (70-400) mg/dl IgM (40-230) mg/dl Influenza Type A (PCR) (Neg) Influenza Type B (PCR) (Neg) Supervising Physician Co-Signing Physician Notes Attending addendum: I have physically seen this patient, have supervised the medical residents activities, and agree with the H&P unless as otherwise noted. Assessment and Plan: Bilateral multifocal pneumonia with left upper lobe cavitary lesion 1.4 cm in diameter- Placed on respiratory isolation. Empiric vancomycin IV and Zosyn IV. We will hold on ordering AFB smear and sputum cultures, as patient will likely need a bronchoscopy, and more accurate specimen can be obtained there. Patient has history of sarcoidosis. Hold on any steroids at this time, till bronchoscopy. Consult pulmonology. Elevated troponin- The patient will be admitted to telemetry for serial cardiac enzymes, serial EKG's, cardiac rhythm monitoring and a 2-D echocardiogram with Dopplers. Suspect supply demand mismatch type II OK. Kidney disease- Creatinine 2.79 upon admission. No baseline available. Hydrate with 1/2 NSS due to sodium of 145, and recheck in a.m. Remaining orders notations as noted. Resident Activity Tracking Resident Involvement: Resident Care Provided Care Provided: Adult [facility]
[2019-07-26 02:09] LABS: Appearance Urine Clear (Clear); Bacteria Urine Automated Negative (Negative); Bilirubin Urine Negative (Negative); Blood Urine Trace (Negative); Color Urine Yellow; Epithelial Cell Urine Auto 20-30 /lpf (0-5); Glucose Urine UA Negative (Negative); Ketones Urine Negative (Negative); Leukocyte Esterase Urine Negative (Negative); Nitrite Urine Negative (Negative); Protein Urine 1+ (Negative); RBC Urine Automated 0-4 /hpf (0-4); Urobilinogen Urine Negative (Negative)
[2019-07-26] MEDS ORDERED: ALUMINUM/MAGNESIUM SUSP 30 ML UDC PO PRN (02:43)
[2019-07-26] MEDS ORDERED: VANCOMYCIN CONSULT ACTIVE PRN ×2 (02:43)
[2019-07-26] MEDS ORDERED: ONDANSETRON INJ 2 MG/ML 2 ML VIAL IV PRN (02:43)
[2019-07-26] MEDS ORDERED: POLYETHYLENE (MIRALAX) 17 GM PACK PO PRN (02:43)
[2019-07-26] MEDS ORDERED: MAGNESIUM HYDROXIDE SUSP 30 ML UDC PO PRN (02:43)
[2019-07-26] MEDS ORDERED: VANCOMYCIN HCL 2,000 MG in SODIUM CHLORIDE 0.9% 500 ML IV ONE (03:00)
--- NOTE | 2019-07-26 03:21 | Billing Data ---
Date of Service July 26, 2019 Coding Level of Care Code 27074 Initial Inpt Care Lvl 3
[2019-07-26] MEDS: D5W AND 1/2NSS + 20MEQ KCL 20 MEQ/1,000 ML BAG IV SCH ×2 (04:52→11:52)
[2019-07-26] MEDS ORDERED: PIPERACILLIN/TAZOBACTAM 4.5 GM in DEXTROSE 5% 100 ML IV SCH (05:00)
--- NOTE | 2019-07-26 06:40 | CT Scan Report ---
CT chest wo con CT DOSE: 441.04 mGycm HISTORY: Chest pain. Dyspnea. cp/sob TECHNIQUE: Multiaxial CT images of the chest were performed without contrast. A dose lowering techni que was utilized adhering to the principles of ALARA. COMPARISON: None. FINDINGS: Diffuse bilateral parenchymal infiltrative change. Diffuse bilateral pleural as well as par enchymal nodularity. Cavitary changes are noted at several locations. Several indeterminate mediastinal and/or hilar nodes. Limited evaluation of the upper abdomen is unremarkable. IMPRESSION: 1. Diffuse bilateral parenchymal infiltrative change. 2. Diffuse nonspecific parenchymal nodularity several of which show evidence for components of centra l necrosis. 3. Mild mediastinal and hilar adenopathy. ACT 112: Negative or not required by law. The above report was generated using voice recognition software. It may contain grammatical, syntax or spelling errors. Electronically signed by: Garrison Stephens M.D. 07/26/2019 6:39 AM
--- NOTE | 2019-07-26 07:06 | Ultrasound Report ---
ULTRASOUND BILATERAL LOWER EXTREMITY VENOUS CLINICAL HISTORY: Lower extremity edema. COMPARISON STUDY: No priors. TECHNIQUE: Real-time, grayscale, and color Doppler sonography of the deep veins of the right and left lower extremity was performed from the inguinal crease to the calf. Compression and augmentation wer e utilized. FINDINGS: There is no sonographic evidence of deep venous thrombosis identified in the right or left lower extremity. The common femoral, superficial femoral, and popliteal veins are patent and normally compressible bilaterally. The greater saphenous vein and the profunda femoris vein at the junction w ith the common femoral vein are clear in both legs. The visualized calf veins are patent bilaterally. IMPRESSION: There is no sonographic evidence of deep venous thrombosis identified in the right or lef t lower extremity. ACT 112: Negative or not required by law. Electronically signed by: Ricardo Lee M.D. 07/26/2019 7:05 AM
[2019-07-26] MEDS: ALBUT/IPRATROP 3MG/0.5MG NEB 3 ML VIAL NEB SCH ×4 (07:10→20:19)
[2019-07-26] MEDS: METOPROLOL TARTRATE 1 MG/ML VIAL IV PRN ×2 (08:10→19:58)
--- NOTE | 2019-07-26 08:32 | Hospitalist Progress Note ---
Date of Service July 26, 2019 Assessment & Plan (1) Multifocal pneumonia: 58-year-old male with past medical history of sarcoidosis admitted with multifocal pneumonia and acute hypoxemic respiratory failure, now with KRISTINA and hemoptysis with continued oxygen demand. Acute hypoxemic respiratory failure in the setting of multifocal pneumonia with cavitary lesion: - Pt's O2 saturation 94% on 8L Oxymask. Continue to wean oxygen as tolerated; pt not on home O2 at baseline. - Both hilar mediastinal lymphadenopathy and cavitary lesion in LLL can possibly be due to sarcoidosis however ruling out infectious causes. - DVT b/l LE negative for evidence of DVT. - Procalcitonin pending. MRSA nares negative. Pt currently on Ceftriaxone/Azithromycin. Pulmonology concerned regarding pt's clinical picture of hemoptysis and increased oxygen demand in the setting of sarcoidosis of the lung and recommended ICU level care -> pt transferred. - QuantiFERON pending; AFB sputum ordered. PT NPO after midnight for possible bronchoscopy tomorrow AM. - ANCA and KARTIK panel ordered to r/o pulmonary-renal syndrome. - Per Pulm would benefit from sleep study outpatient as well as pulmonology f/u in [place] regarding his sarcoidosis. - Scheduled and PRN DuoNebs. Elevated troponin - No personal history of heart attack or stroke, EKG without ST changes; shows sinus tachycardia. - Troponin 0.057 -> 0.065 -> 0.047 this PM. Likely due to demand from severe hypoxia and HTN urgency. - Pt without signs or symptoms of MT. - Echo this AM shows mild LVH, normal EF 60-65%, right ventricular systolic pressure elevation. KRISTINA, possibly on baseline CKD: - Pt's Cr 2.7 -> 3.13 this AM. - Unsure of pt's baseline at this time, however likely that this pt has undiagnosed HTN and is pre-diabetic with Hgb A1c 5.9%. May also be an element of sleep apnea. Pt has pulmonary HTN on Echo. - Renally dosing medications; avoiding nephrotoxins. - Pt getting KCl w/ D5 1/2NSS @140mL/hr. HTN: - This admission pt's BP 170-190s/90-110s. Pt is without dizziness, headaches, CP, palpitations. - Pt's BP refractory to metoprolol 5mg IV. - Have started amlodipine 10mg daily and will continue to monitor BP. Prostatitis: - Pt recently treated with "7 days of antibiotics for prostatitis". Pt with polyuria but without hematuria or dysuria. - UA negative for infection this admission. FEN/GI: NPO after midnight for possible bronchoscopy tomorrow. KCl w/ D5 1/2NSS @140mL/hr. DVT ppx: SCDs CODE STATUS: FULL DISPO: ICU (2) Elevated troponin: (3) Prostatitis: (4) Leg swelling: (5) Acute hypoxemic respiratory failure: (6) Secondary pulmonary hypertension: (7) Renal failure (ARF), acute on chronic: (8) Sarcoidosis, nodular type: Supervising Physician Co-Signing Physician Notes Patient seen and examined with PGY-1 Dr. Velez. Agree with history, exam findings, assessment and plan of care as outlined with the following updates: In brief, Mr. Cardenas is a 58 year old male with history of sarcoidosis admitted with worsening cough, dyspnea, and new O2 requirement, found to have multifocal pneumonia and new cavitary lesion on chest CT. This morning, he continues to have a lot of coughing, some rib and abdominal pain as a result, and shortness of breath mostly associated with cough. Vital signs and nursing notes reviewed. Lungs with scattered ronchi in all lung galvan. No accessory muscle use. 1. bilateral multifocal pneumonia with left upper lobe cavitary lesion in the setting of known sarcoidosis. - switched from vanc and zosyn to ceftriaxone and azithromycin, steroids added by pulm as well. Procal neg. - quantiferon gold is pending, resp precautions. - transferred to ICU for increased work of breathing and desats on 8L oxymask this afternoon. Possible bronch tomorrow AM. NPO at [place]. Appreciate critcal care and pulm recommendations. 2. Elevated trop. EKG without ischemic changes. Likely demand ischemia. Trending trops. - Echo with mild LVH and elevated pulm artery pressures. 3. Hypertension, uncontrolled. Started on amlodipine 10mg. Will likely need to adjust this. Suspect there is an element of undiagnosed HTN and DEEPALI. 4. KRISTINA, unsure of baseline, but in the setting of undiagnosed HTN, may have some element of CKD as well. Continue IVFs. 5. PreDM. Monitor sugars. Dispo: pending clinical improvement. 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 Will need records sent to PCP in the [facility] and will likely need physician's note for work. Subjective Pt without acute events overnight. Still with SOB and intermittent cough; has had Sx since 07/22. No dizziness, CP, palpitations. No diaphoresis. No changes in bowels. Recent treatment for prostatitis with unknown antibiotic, still with polyuria but without burning or hematuria. Reports no history of HTN, DM2, HLD. Does not follow with Pulm in [place] regarding his sarcoidosis, which he was diagnosed with ~2 years ago. No exotic travel. 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 also with "cold symptoms". Review of Systems Constitutional: + fever (endorses subjective fevers) and + malaise; no chills Respiratory: + cough and + dyspnea; no wheezing Cardiovascular: no chest pain, no palpitations and no edema Gastrointestinal: no abdominal pain, no constipation and no diarrhea/loose stools Genitourinary: no dysuria and no hematuria Physical Exam Constitutional: WD/WN, vitals as above Respiratory: pt with increased work of breathing on exam, rhonchorous throughout, no wheezing. Cardiovascular: RRR, no murmur, no edema Gastrointestinal (Abdomen): normal bowel sounds, soft, nontender, no hepatosplenomegaly Skin: no rashes, warm and dry Psychiatric: A+Ox3, euthymic affect Results & Data Vital Signs (Past 12 Hours) Vital Signs Temp Pulse Pulse Resp BP BP BP 07/26/19 08:10 93 H 185/113 H 07/26/19 08:07 36.5 C 93 H 18 168/104 H 185/113 H 07/26/19 07:10 86 16 07/26/19 02:43 07/26/19 02:30 36.7 C 101 H 28 H 178/115 H 07/26/19 01:15 87 33 H 179/107 H 07/26/19 01:00 88 33 H 170/103 H 07/26/19 00:46 98 H 25 H 196/116 H 07/26/19 00:30 100 H 27 H 178/106 H 07/26/19 00:20 18 169/107 H 07/26/19 00:15 22 07/26/19 00:00 38 H 07/25/19 23:50 110 H 28 H 07/25/19 23:31 109 H 39 H 07/25/19 23:30 109 H 39 H 199/123 H 07/25/19 23:19 07/25/19 23:17 107 H 25 H 07/25/19 23:16 106 H 43 H 186/109 H 07/25/19 23:15 109 H 25 H 07/25/19 23:10 115 H 34 H 202/120 H 07/25/19 23:08 07/25/19 22:45 108 H 38 H 07/25/19 22:38 113 H 32 H 07/25/19 22:31 112 H 32 H 07/25/19 22:30 116 H 29 H 168/107 H 07/25/19 22:26 111 H 07/25/19 22:23 118 H 23 07/25/19 22:19 36.7 C 119 H 42 H 191/117 H Pulse Ox Pulse Ox 07/26/19 08:10 07/26/19 08:07 94 07/26/19 07:10 92 07/26/19 02:43 94 07/26/19 02:30 94 07/26/19 01:15 93 07/26/19 01:00 95 07/26/19 00:46 93 07/26/19 00:30 91 07/26/19 00:20 93 07/26/19 00:15 94 07/26/19 00:00 93 07/25/19 23:50 88 L 07/25/19 23:31 93 07/25/19 23:30 94 07/25/19 23:19 94 07/25/19 23:17 94 07/25/19 23:16 94 07/25/19 23:15 94 07/25/19 23:10 92 07/25/19 23:08 84 L 07/25/19 22:45 93 07/25/19 22:38 95 07/25/19 22:31 89 L 07/25/19 22:30 90 07/25/19 22:26 93 07/25/19 22:23 91 07/25/19 22:19 63 L Laboratory Results Laboratory Results - last 24 hr 07/25/19 07/25/19 07/25/19 22:35 22:35 22:35 WBC 10.46 RBC 5.10 Hgb 14.8 POC Hgb Hct 43.2 POC Hct MCV 84.7 MCH 29.0 MCHC 34.3 RDW Std Deviation 46.1 RDW Coeff of Tal 14.9 H Plt Count 225 MPV 11.3 H Immature Gran % (Auto) 0.2 Neut % (Auto) 79.5 Lymph % (Auto) 10.1 Parke % (Auto) 9.8 Eos % (Auto) 0.3 Baso % (Auto) 0.1 Immature Gran # (Auto) 0.02 Neut # (Auto) 8.32 H Lymph # (Auto) 1.06 L Parke # (Auto) 1.02 H Eos # (Auto) 0.03 Baso # (Auto) 0.01 PT 10.8 INR 1.1 APTT 22.9 PTT Ratio 0.8 ABG pH ABG pCO2 ABG pO2 ABG HCO3 ABG O2 Saturation ABG Base Excess Alexx Test Barometric Pressure Oxygen Given POC Sodium Sodium 145 POC Potassium Potassium 4.0 POC Chloride Chloride 113 H Carbon Dioxide 21 POC Total CO2 Anion Gap 11.0 POC Anion Gap POC BUN BUN 23 H Creatinine 2.79 H POC Creatinine Est Cr Clr Drug Dosing 32.9 Est GFR ( Amer) 27.9 Est GFR (Non-Af Amer) 24.1 BUN/Creatinine Ratio 8.2 L Glucose 134 H POC Glucose (other) Estimat Average Glucose Hemoglobin A1c POC Lactic Acid Néstor Calcium 9.0 POC Ioniz Calcium Tata Magnesium 2.1 Total Bilirubin 0.9 AST 31 ALT 57 Alkaline Phosphatase 100 Total Creatine Kinase 194 Troponin I 0.059 H* NT-Pro-B Natriuret Pep 2302 H Total Protein 8.1 Albumin 3.6 Globulin 4.5 H Albumin/Globulin Ratio 0.8 L Procalcitonin Specimen Hemolysis Urine Color Urine Appearance Urine pH Ur Specific [place] Urine Protein Urine Glucose (UA) Urine Ketones Urine Blood Urine Nitrite Urine Bilirubin Urine Urobilinogen Ur Leukocyte Esterase Urine WBC (Auto) Urine RBC (Auto) U Hyaline Cast (Auto) U Epithel Cells (Auto) Urine Bacteria (Auto) Nasal Screen MRSA (PCR) IgG 1160.0 IgA 193.0 IgM 147.0 KARTIK Screen ANCA Influenza Type A (PCR) Influenza Type B (PCR) TB Test (QFT) Gold Plus TB Test (QFT) Nil TB Test Mitogen - Nil TB Test Ag - Nil 1 TB Test Ag - Nil 2 07/25/19 07/25/19 07/25/19 22:42 22:47 23:25 WBC RBC Hgb POC Hgb 14.6 Hct POC Hct 43 MCV MCH MCHC RDW Std Deviation RDW Coeff of Tal Plt Count MPV Immature Gran % (Auto) Neut % (Auto) Lymph % (Auto) Parke % (Auto) Eos % (Auto) Baso % (Auto) Immature Gran # (Auto) Neut # (Auto) Lymph # (Auto) Parke # (Auto) Eos # (Auto) Baso # (Auto) PT INR APTT PTT Ratio ABG pH Cancelled ABG pCO2 Cancelled ABG pO2 Cancelled ABG HCO3 Cancelled ABG O2 Saturation Cancelled ABG Base Excess Cancelled Alexx Test Cancelled Barometric Pressure Cancelled Oxygen Given Cancelled POC Sodium 146 H Sodium POC Potassium 4.1 Potassium POC Chloride 115 H Chloride Carbon Dioxide POC Total CO2 21 L Anion Gap POC Anion Gap 15.0 L POC BUN 27 H BUN Creatinine POC Creatinine 2.7 H Est Cr Clr Drug Dosing Est GFR ( Amer) Est GFR (Non-Af Amer) BUN/Creatinine Ratio Glucose POC Glucose (other) 130 H Estimat Average Glucose Hemoglobin A1c POC Lactic Acid Néstor 2.28 H Calcium POC Ioniz Calcium Tata 1.06 L Magnesium Total Bilirubin AST ALT Alkaline Phosphatase Total Creatine Kinase Troponin I NT-Pro-B Natriuret Pep Total Protein Albumin Globulin Albumin/Globulin Ratio Procalcitonin Specimen Hemolysis Urine Color Urine Appearance Urine pH Ur Specific [place] Urine Protein Urine Glucose (UA) Urine Ketones Urine Blood Urine Nitrite Urine Bilirubin Urine Urobilinogen Ur Leukocyte Esterase Urine WBC (Auto) Urine RBC (Auto) U Hyaline Cast (Auto) U Epithel Cells (Auto) Urine Bacteria (Auto) Nasal Screen MRSA (PCR) IgG IgA IgM KARTIK Screen ANCA Influenza Type A (PCR) Influenza Type B (PCR) TB Test (QFT) Gold Plus TB Test (QFT) Nil TB Test Mitogen - Nil TB Test Ag - Nil 1 TB Test Ag - Nil 2 07/25/19 07/26/19 07/26/19 Unknown 00:00 00:16 WBC RBC Hgb POC Hgb Hct POC Hct MCV MCH MCHC RDW Std Deviation RDW Coeff of Tal Plt Count MPV Immature Gran % (Auto) Neut % (Auto) Lymph % (Auto) Parke % (Auto) Eos % (Auto) Baso % (Auto) Immature Gran # (Auto) Neut # (Auto) Lymph # (Auto) Parke # (Auto) Eos # (Auto) Baso # (Auto) PT INR APTT PTT Ratio ABG pH 7.50 H ABG pCO2 28 L ABG pO2 70 L ABG HCO3 22 ABG O2 Saturation 95.0 ABG Base Excess -0.4 Alexx Test Pos Barometric Pressure Oxygen Given 10L POC Sodium Sodium POC Potassium Potassium POC Chloride Chloride Carbon Dioxide POC Total CO2 Anion Gap POC Anion Gap POC BUN BUN Creatinine POC Creatinine Est Cr Clr Drug Dosing Est GFR ( Amer) Est GFR (Non-Af Amer) BUN/Creatinine Ratio Glucose POC Glucose (other) Estimat Average Glucose Hemoglobin A1c POC Lactic Acid Néstor Calcium POC Ioniz Calcium Tata Magnesium Total Bilirubin AST ALT Alkaline Phosphatase Total Creatine Kinase Troponin I NT-Pro-B Natriuret Pep Total Protein Albumin Globulin Albumin/Globulin Ratio Procalcitonin Specimen Hemolysis Urine Color Yellow Urine Appearance Clear Urine pH 7.0 Ur Specific [place] 1.010 Urine Protein 1+ H Urine Glucose (UA) Negative Urine Ketones Negative Urine Blood Trace H Urine Nitrite Negative Urine Bilirubin Negative Urine Urobilinogen Negative Ur Leukocyte Esterase Negative Urine WBC (Auto) 1-5 Urine RBC (Auto) 0-4 U Hyaline Cast (Auto) 1-5 U Epithel Cells (Auto) 20-30 H Urine Bacteria (Auto) Negative Nasal Screen MRSA (PCR) IgG IgA IgM KARTIK Screen ANCA Influenza Type A (PCR) Neg for Influ A Influenza Type B (PCR) Neg for Influ B TB Test (QFT) Gold Plus TB Test (QFT) Nil TB Test Mitogen - Nil TB Test Ag - Nil 1 TB Test Ag - Nil 2 07/26/19 07/26/19 07/26/19 05:00 08:54 08:54 WBC 7.72 RBC 4.66 L Hgb 13.4 L POC Hgb Hct 39.7 L POC Hct MCV 85.2 MCH 28.8 MCHC 33.8 RDW Std Deviation 46.9 H RDW Coeff of Tal 15.1 H Plt Count 204 MPV 10.7 H Immature Gran % (Auto) 0.1 Neut % (Auto) 89.8 Lymph % (Auto) 6.6 Parke % (Auto) 3.5 Eos % (Auto) 0.0 Baso % (Auto) 0.0 Immature Gran # (Auto) 0.01 Neut # (Auto) 6.93 H Lymph # (Auto) 0.51 L Parke # (Auto) 0.27 Eos # (Auto) 0.00 Baso # (Auto) 0.00 PT INR APTT PTT Ratio ABG pH ABG pCO2 ABG pO2 ABG HCO3 ABG O2 Saturation ABG Base Excess Alexx Test Barometric Pressure Oxygen Given POC Sodium Sodium POC Potassium Potassium POC Chloride Chloride Carbon Dioxide POC Total CO2 Anion Gap POC Anion Gap POC BUN BUN Creatinine POC Creatinine Est Cr Clr Drug Dosing Est GFR ( Amer) Est GFR (Non-Af Amer) BUN/Creatinine Ratio Glucose POC Glucose (other) Estimat Average Glucose Hemoglobin A1c POC Lactic Acid Néstor Calcium POC Ioniz Calcium Tata Magnesium Total Bilirubin AST ALT Alkaline Phosphatase Total Creatine Kinase Troponin I 0.065 H* NT-Pro-B Natriuret Pep Total Protein Albumin Globulin Albumin/Globulin Ratio Procalcitonin Specimen Hemolysis Urine Color Urine Appearance Urine pH Ur Specific [place] Urine Protein Urine Glucose (UA) Urine Ketones Urine Blood Urine Nitrite Urine Bilirubin Urine Urobilinogen Ur Leukocyte Esterase Urine WBC (Auto) Urine RBC (Auto) U Hyaline Cast (Auto) U Epithel Cells (Auto) Urine Bacteria (Auto) Nasal Screen MRSA (PCR) Negative IgG IgA IgM KARTIK Screen ANCA Influenza Type A (PCR) Influenza Type B (PCR) TB Test (QFT) Gold Plus TB Test (QFT) Nil TB Test Mitogen - Nil TB Test Ag - Nil 1 TB Test Ag - Nil 2 07/26/19 07/26/19 07/26/19 08:54 08:56 08:56 WBC RBC Hgb POC Hgb Hct POC Hct MCV MCH MCHC RDW Std Deviation RDW Coeff of Tal Plt Count MPV Immature Gran % (Auto) Neut % (Auto) Lymph % (Auto) Parke % (Auto) Eos % (Auto) Baso % (Auto) Immature Gran # (Auto) Neut # (Auto) Lymph # (Auto) Parke # (Auto) Eos # (Auto) Baso # (Auto) PT INR APTT PTT Ratio ABG pH ABG pCO2 ABG pO2 ABG HCO3 ABG O2 Saturation ABG Base Excess Alexx Test Barometric Pressure Oxygen Given POC Sodium Sodium 145 POC Potassium Potassium 4.6 POC Chloride Chloride 115 H Carbon Dioxide 21 POC Total CO2 Anion Gap 9.0 POC Anion Gap POC BUN BUN 28 H Creatinine 3.13 H D POC Creatinine Est Cr Clr Drug Dosing 28.8 Est GFR ( Amer) 24.3 Est GFR (Non-Af Amer) 20.9 BUN/Creatinine Ratio 8.9 L Glucose 157 H POC Glucose (other) Estimat Average Glucose Hemoglobin A1c POC Lactic Acid Néstor Calcium 8.7 POC Ioniz Calcium Tata Magnesium 2.3 Total Bilirubin 0.9 AST 19 ALT 47 Alkaline Phosphatase 89 Total Creatine Kinase Troponin I NT-Pro-B Natriuret Pep Total Protein 7.4 Albumin 3.0 L Globulin 4.4 H Albumin/Globulin Ratio 0.7 L Procalcitonin 0.36 Specimen Hemolysis Urine Color Urine Appearance Urine pH Ur Specific [place] Urine Protein Urine Glucose (UA) Urine Ketones Urine Blood Urine Nitrite Urine Bilirubin Urine Urobilinogen Ur Leukocyte Esterase Urine WBC (Auto) Urine RBC (Auto) U Hyaline Cast (Auto) U Epithel Cells (Auto) Urine Bacteria (Auto) Nasal Screen MRSA (PCR) IgG IgA IgM KARTIK Screen Pending ANCA Pending Influenza Type A (PCR) Influenza Type B (PCR) TB Test (QFT) Gold Plus TB Test (QFT) Nil TB Test Mitogen - Nil TB Test Ag - Nil 1 TB Test Ag - Nil 2 07/26/19 07/26/19 11:35 11:35 WBC RBC Hgb POC Hgb Hct POC Hct MCV MCH MCHC RDW Std Deviation RDW Coeff of Tal Plt Count MPV Immature Gran % (Auto) Neut % (Auto) Lymph % (Auto) Parke % (Auto) Eos % (Auto) Baso % (Auto) Immature Gran # (Auto) Neut # (Auto) Lymph # (Auto) Parke # (Auto) Eos # (Auto) Baso # (Auto) PT INR APTT PTT Ratio ABG pH ABG pCO2 ABG pO2 ABG HCO3 ABG O2 Saturation ABG Base Excess Alexx Test Barometric Pressure Oxygen Given POC Sodium Sodium POC Potassium Potassium POC Chloride Chloride Carbon Dioxide POC Total CO2 Anion Gap POC Anion Gap POC BUN BUN Creatinine POC Creatinine Est Cr Clr Drug Dosing Est GFR ( Amer) Est GFR (Non-Af Amer) BUN/Creatinine Ratio Glucose POC Glucose (other) Estimat Average Glucose 123 Hemoglobin A1c 5.9 H POC Lactic Acid Néstor Calcium POC Ioniz Calcium Tata Magnesium Total Bilirubin AST ALT Alkaline Phosphatase Total Creatine Kinase Troponin I NT-Pro-B Natriuret Pep Total Protein Albumin Globulin Albumin/Globulin Ratio Procalcitonin Specimen Hemolysis Urine Color Urine Appearance Urine pH Ur Specific [place] Urine Protein Urine Glucose (UA) Urine Ketones Urine Blood Urine Nitrite Urine Bilirubin Urine Urobilinogen Ur Leukocyte Esterase Urine WBC (Auto) Urine RBC (Auto) U Hyaline Cast (Auto) U Epithel Cells (Auto) Urine Bacteria (Auto) Nasal Screen MRSA (PCR) IgG IgA IgM KARTIK Screen ANCA Influenza Type A (PCR) Influenza Type B (PCR) TB Test (QFT) Gold Plus Pending TB Test (QFT) Nil Pending TB Test Mitogen - Nil Pending TB Test Ag - Nil 1 Pending TB Test Ag - Nil 2 Pending Medications Administered Current Medications Acetaminophen (Tylenol) 650 mg PO Q4H PRN PRN Reason: Pain or Fever Stop: 08/25/19 02:42 Al Hydrox/Mg Hydrox/Simethicone (Maalox) 15 ml PO Q4H PRN PRN Reason: Dyspepsia Stop: 08/25/19 02:42 Albuterol (Duoneb) 3 ml NEB QIDR JALEN Stop: 08/25/19 06:59 Last Admin: 07/26/19 11:10 Dose: 3 ml Documented by: Amlodipine Besylate (Norvasc) 10 mg PO QAM JALEN Stop: 08/26/19 08:59 Potassium Chloride/Dextrose/Sod Cl (D5w And 1/2nss + 20meq Kcl) 20 meq in 1,000 mls @ 140 mls/hr IV .Q7H9M JALEN Stop: 08/25/19 04:14 Last Infusion: 07/26/19 13:18 Dose: 0 mls/hr Documented by: Ceftriaxone Sodium 2,000 mg/ (Dextrose) 70 mls @ 100 mls/hr IV DAILY@1400 JALEN; Protocol Stop: 08/02/19 13:59 Last Admin: 07/26/19 13:21 Dose: 100 mls/hr Documented by: Azithromycin 500 mg/ Dextrose 255 mls @ 125 mls/hr IV DAILY@1300 JALEN; Protocol Stop: 08/02/19 12:59 Magnesium Hydroxide (Milk Of Magnesia) 30 ml PO Q12H PRN PRN Reason: Constipation Stop: 08/25/19 02:42 Metoprolol Tartrate (Lopressor) 5 mg IV Q4H PRN PRN Reason: Hypertension Stop: 08/25/19 01:34 Last Admin: 07/26/19 08:10 Dose: 5 mg Documented by: Ondansetron HCl (Zofran) 4 mg IV Q6H PRN PRN Reason: Nausea Stop: 08/25/19 02:42 Polyethylene Glycol (Miralax Powder Packet) 17 gm PO DAILY PRN PRN Reason: Constipation Stop: 08/25/19 02:42 Resident Activity Tracking Resident Involvement: Resident Care Provided Care Provided: Adult Hospital Medicine
[2019-07-26 09:06] LABS: Hematocrit (blood only) 39.7 % (42-52); Hemoglobin 13.4 g/dL (14.0-18.0); Immature Granulocytes # (auto) 0.01 K/uL (0.00-0.02); Immature Granulocytes % (auto) 0.1 %; Lymphocytes # (auto) 0.51 K/uL (1.2-3.4); Lymphocytes % (auto) 6.6 %; Mean Corpuscular Hemoglobin 28.8 pg (25-34); Mean Corpuscular Hgb Conc 33.8 g/dL (32-36); Mean Corpuscular Volume 85.2 fL (80-100); Mean Platelet Volume 10.7 fL (7.4-10.4); Monocytes # (auto) 0.27 K/uL (0.11-0.59); Monocytes % (auto) 3.5 %; Neutrophils # (auto) 6.93 K/uL (1.4-6.5); Neutrophils % (auto) 89.8 %; Platelet Count 204 K/uL (130-400); RDW Coefficient of Variation 15.1 % (11.5-14.5); RDW Standard Deviation 46.9 fL (36.4-46.3); Red Blood Count 4.66 M/uL (4.7-6.1); White Blood Count 7.72 K/uL (4.8-10.8)
[2019-07-26 09:22] LABS: BUN Creatinine Ratio 8.9 (10-20); Calcium 8.7 mg/dl (8.5-10.1); Creatinine Clr Calc Pharmacy 28.8 ml/min; Est GFR (African American) 24.3; Est GFR (Non-African American) 20.9; Magnesium 2.3 mg/dl (1.8-2.4); Potassium 4.6 mmol/L (3.5-5.1)
[2019-07-26 09:25] LABS: Albumin Globulin Ratio 0.7 (0.9-2); Bilirubin,Total 0.9 mg/dl (0.2-1); Globulin 4.4 gm/dl (2.5-4.0); Total Protein 7.4 gm/dl (6.4-8.2)
[2019-07-26] MEDS ORDERED: AMLODIPINE BESYLATE 5 MG TAB PO ONE (11:15)
--- NOTE | 2019-07-26 12:21 | Pulmonary Consultation ---
Date of Consultation July 26, 2019 Assessment & Plan (1) Acute hypoxemic respiratory failure: Patient appears to have some degree of acute on chronic disease based on his CT of his chest. It would be nice if we could get the imaging from the [facility] where he had a bronchoscopy and a CT chest approximately 7 years ago. He does have bilateral hilar mediastinal adenopathy and upper lobe predominant nodules which would be consistent with sarcoidosis. He does have a cavity in his left upper lobe and occasionally sarcoid can cavitate. He is being evaluated for possible tuberculosis. QuantiFERON gold is pending. I also ordered for an AFB of his sputum. He does have infiltrative changes in the right middle lobe and left lower lobe superior subsegment which are likely related to pneumonia. I did order for procalcitonin. I have changed antibiotics from Zosyn to ceftriaxone and azithromycin. Generally, we do give steroids for sarcoidosis related exacerbations, but given the severity of his pneumonia, I would like to hold off on steroids at this present time. I have also ordered for an ANCA and an KARTIK panel on the off chance that we may be dealing with a pulmonary-renal syndrome. He does not have any significant active urinary sediment so I think this is unlikely. He also has some degree of pulmonary hypertension given his echocardiogram findings likely due to his underlying sarcoidosis and possibly from untreated sleep apnea. He would benefit from a sleep study as an outpatient and potentially a right heart cath as an outpatient when he is stabilized and discharged. He also needs follow-up for his sarcoidosis including eye exams, labs and pulmo nary function testing. He would benefit from an outpatient supervisor shipping room. It seems like his home is in [place] and he will need to establish care down there. Please keep him n.p.o. after midnight for the possibility of a bronchoscopy tomorrow morning. (2) Sarcoidosis, nodular type: (3) Multifocal pneumonia: (4) Secondary pulmonary hypertension: (5) Renal failure (ARF), acute on chronic: History of Present Illness Reason for Consultation: History of sarcoidosis Requesting Physician: Dr. Thomas Attending Physician: Erma Tariq DO History of Present Illness This is a 58-year-old -Vietnamese male with a past medical history of sarcoidosis diagnosed on biopsy per the patient 7 years ago in [place]. He thinks the hospital where he had a bronchoscopy and biopsy with [facility]. He does not follow with a supervisor shipping room on a regular basis. Patient reports that since the 22 Of July he had significant shortness of breath and cough with nonproductive sputum. He notes that he had similar symptoms roughly 7 years ago when he was initially diagnosed with sarcoidosis. At that time, the concern was for tuberculosis. He underwent a bronchoscopy and was told that he had sarcoid. We have no records of this unfortunately. He notes he had a CT scan at that time which we do not have records of. 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 He came to [facility] and was barely able to walk across the parking lot.He has been on Zosyn and high flow oxygen. He is currently on 8 L of Oxygen via oxygen mask. He denies any fevers, chills or night sweats. He denies any significant change in weight. He denies any chest pain. He denies any recent sick contacts. No myalgias. He was previously in the . He served in the [employer] of the [employer] but never sought active duty. He was deployed to [place], [place] and the [place]. 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 [place] the [place]. He was in [place] approximately 3 years ago. He denies any history of incarceration. He does not smoke, use alcohol or use drugs. He lives with his in [place]. They do not have any pets. They do not have any open water sources in their home. Yesterday, he did have a CT of his chest completed which demonstrated diffuse bilateral parenchymal infiltrative changes. There was diffuse nonspecific parenchymal nodularity with evidence of central necrosis noted as well. Mild mediastinal and hilar adenopathy was seen as well. On admission he was also found to be in renal failure with a creatinine 2.79 that has now trended upwards to 3.13. He also had a lactate of 2.28. He did have a troponin bump to 0.065. His proBNP is also elevated to 2302. His white count has been in normal range. Allergies Allergy/AdvReac Type Severity Reaction Status Date / Time No Known Allergies Allergy Verified 07/25/19 22:39 Home Medications Home Medications Medication Instructions Recorded Confirmed Type rdqonhpudiu-[id number] 0 ea PO DIRECTED PRN 07/25/19 07/25/19 History [Patito-Tatum Plus Cold (PE)] dextromethorphan-guaifenesin 10 ml PO DIRECTED PRN 07/25/19 07/25/19 History [Robitussin Cough-Chest [place] DM] Patient History Social History Preferred Language: Niuean 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: Effective Furnace Filler Required: No Beliefs That Will Affect Care: None Current Living Situation: Spouse Other Information That Helps Us Care for You: No Feels Safe at Home: Yes Safety Concerns: Feels Safe At This Time Smoking Status: Never smoker Do You Dip or Chew Tobacco: No ; Second Hand Exposure: No ; Tobacco Cessation Education Requested by Patient: No Hx Alcohol Use: No Hx Substance Use: No Review of Systems Review of Systems: All systems reviewed & are unremarkable except as noted in HPI & below Physical Exam Constitutional: WD/WN, vitals as above 58-year-old -Vietnamese male appears to be stated age. He is sitting in his bed wearing an oxygen mask. He is coughing frequently. Eyes: PERRL, conjunctivae normal, anicteric sclerae ENMT: external ear and nose normal, oropharynx normal Neck: normal visual inspection Respiratory: Diffuse Rales and rhonchi. Coughing frequently. Tachypneic. Cardiovascular: Tachycardic. Regular rhythm. No obvious murmur. 1+ pitting edema lower extremities. Gastrointestinal (Abdomen): normal bowel sounds, soft, nontender, no hepatosplenomegaly Musculoskeletal: no cyanosis or clubbing, extremities motor strength 5/5 Skin: no rashes, warm and dry Neurologic: PERRL, EOMI, accommodation nl, no face palsy, no dysarthria Psychiatric: A+Ox3, euthymic affect Lymphatic: no cervical or axillary lymphadenopathy Results & Data Vital Signs (Past 12 Hours) Vital Signs Temp Pulse Pulse Resp BP BP BP 07/26/19 11:49 97.9 F 98 H 20 171/98 H 07/26/19 11:11 89 22 07/26/19 10:13 102 H 180/107 H 07/26/19 08:10 93 H 185/113 H 07/26/19 08:07 97.7 F 93 H 18 168/104 H 185/113 H 07/26/19 07:10 86 16 07/26/19 02:43 07/26/19 02:30 98.1 F 101 H 28 H 178/115 H 07/26/19 01:15 87 33 H 179/107 H 07/26/19 01:00 88 33 H 170/103 H 07/26/19 00:46 98 H 25 H 196/116 H 07/26/19 00:30 100 H 27 H 178/106 H 07/26/19 00:20 18 169/107 H Pulse Ox Pulse Ox 07/26/19 11:49 94 07/26/19 11:11 94 07/26/19 10:13 07/26/19 08:10 07/26/19 08:07 94 07/26/19 07:10 92 07/26/19 02:43 94 07/26/19 02:30 94 07/26/19 01:15 93 07/26/19 01:00 95 07/26/19 00:46 93 07/26/19 00:30 91 07/26/19 00:20 93 I personally reviewed the patient's pertinent labs and chest imaging. PG Care Time/CCT Total # of Minutes Spent Total Time Spent with Patient: Total time spent is greater than 50% in coordination of care (as documented) at patient's floor/unit and/or counseling patient:
[2019-07-26 12:24] LABS: Estimated Average Glucose 123 mg/dl; Hemoglobin A1C 5.9 % (4.5-5.6)
[2019-07-26] MEDS: cefTRIAXone SODIUM 2,000 MG in DEXTROSE 5% 50 ML IV SCH (13:21)
[2019-07-26] MEDS: AZITHROMYCIN 500 MG in DEXTROSE 5% 250 ML IV SCH (13:58)
[2019-07-26] MEDS: methylPREDNISolone 60 MG in SYRINGE 0 ML IV SCH (17:11)
[2019-07-26] MEDS: NORMOSOL-R 1,000 ML IV SCH (20:51)
[2019-07-27] MEDS: METOPROLOL TARTRATE 1 MG/ML VIAL IV PRN ×2 (00:12→05:52)
[2019-07-27 04:31] LABS: Hematocrit (blood only) 40.6 % (42-52); Hemoglobin 13.6 g/dL (14.0-18.0); Immature Granulocytes # (auto) 0.03 K/uL (0.00-0.02); Immature Granulocytes % (auto) 0.2 %; Lymphocytes # (auto) 0.55 K/uL (1.2-3.4); Lymphocytes % (auto) 4.5 %; Mean Corpuscular Hemoglobin 28.3 pg (25-34); Mean Corpuscular Hgb Conc 33.5 g/dL (32-36); Mean Corpuscular Volume 84.6 fL (80-100); Mean Platelet Volume 10.9 fL (7.4-10.4); Monocytes # (auto) 0.62 K/uL (0.11-0.59); Monocytes % (auto) 5.1 %; Neutrophils # (auto) 10.92 K/uL (1.4-6.5); Neutrophils % (auto) 90.2 %; Platelet Count 216 K/uL (130-400); RDW Coefficient of Variation 15.3 % (11.5-14.5); RDW Standard Deviation 47.3 fL (36.4-46.3); White Blood Count 12.12 K/uL (4.8-10.8)
[2019-07-27 04:50] LABS: BUN Creatinine Ratio 12.4 (10-20); Calcium 8.7 mg/dl (8.5-10.1); Creatinine Clr Calc Pharmacy 31.1 ml/min; Est GFR (African American) 26.6; Potassium 4.8 mmol/L (3.5-5.1)
[2019-07-27] MEDS: NORMOSOL-R 1,000 ML IV SCH (04:56)
[2019-07-27] MEDS ORDERED: VANCOMYCIN HCL 1,500 MG in SODIUM CHLORIDE 0.9% 500 ML IV SCH (06:00)
[2019-07-27] MEDS: D5W AND 1/2NSS + 20MEQ KCL 20 MEQ/1,000 ML BAG IV SCH (07:05)
[2019-07-27] MEDS: ALBUT/IPRATROP 3MG/0.5MG NEB 3 ML VIAL NEB SCH ×4 (07:51→19:50)
--- NOTE | 2019-07-27 08:37 | Hospitalist Progress Note ---
Date of Service July 27, 2019 Assessment & Plan (1) Multifocal pneumonia: 58-year-old male with past medical history of sarcoidosis admitted with multifocal pneumonia and acute hypoxemic respiratory failure, now with ? resolving KRISTINA on CKD and hemoptysis with continued increased oxygen demand. Acute hypoxemic respiratory failure in the setting of multifocal pneumonia with cavitary lesion: - Pt's O2 saturation 94% on HFNC @ flow rate 30, FiO2 40%. Continue to wean oxygen as tolerated; pt not on home O2 at baseline. For possible bronchoscopy pending records from [facility] where pt had previous bronch about 7 years ago. - Both hilar mediastinal lymphadenopathy and cavitary lesion in LLL can possibly be due to sarcoidosis however ruling out infectious causes. - DVT b/l LE negative for evidence of DVT. - MRSA nares negative. Pt currently on Ceftriaxone/Azithromycin. Pulmonology started pt on daily steroids and transferred to ICU for closer follow up in the setting of acute respiratory failure. Scheduled and PRN DuoNebs. - QuantiFERON pending; AFB sputum ordered. PT NPO after midnight for possible bronchoscopy tomorrow AM. - ANCA and KARTIK panel ordered to r/o pulmonary-renal syndrome. - Per Pulm would benefit from sleep study outpatient as well as pulmonology f/u in [place] regarding his sarcoidosis. Elevated troponin - No personal history of heart attack or stroke, EKG without ST changes; shows sinus tachycardia. - Troponin 0.057 -> 0.065 -> 0.047 this admission. Likely due to demand from severe hypoxia and HTN urgency. No further intervention. - Pt without signs or symptoms of FL. - Echo this AM shows mild LVH, normal EF 60-65%, right ventricular systolic pressure elevation. KRISTINA, possibly on baseline CKD: - Pt's Cr 2.7 -> 3.13 -> 2.90 this AM. - Unsure of pt's baseline at this time, however likely that this pt has undiagnosed HTN and is pre-diabetic with Hgb A1c 5.9%. May also be an element of sleep apnea. Pt has pulmonary HTN on Echo. - Renally dosing medications; avoiding nephrotoxins. - Pt appears euvolemic and fluids have been d/c'ed. No diuretic due to uncertainty regarding baseline kidney function. HTN: - This admission pt's BP 170-190s/90-110s. Pt is without dizziness, headaches, CP, palpitations. - Have started amlodipine 10mg daily and will continue to monitor BP. Metoprolol 5mg IV PRN SBP >170. Prostatitis: - Pt recently treated with "7 days of antibiotics for prostatitis". Pt with polyuria but without hematuria or dysuria. - UA negative for infection this admission. FEN/GI: NPO after midnight for possible bronchoscopy tomorrow. DVT ppx: Heparin 5000u BID CODE STATUS: FULL DISPO: ICU (2) Elevated troponin: (3) Prostatitis: (4) Leg swelling: (5) Acute hypoxemic respiratory failure: (6) Secondary pulmonary hypertension: (7) Renal failure (ARF), acute on chronic: (8) Sarcoidosis, nodular type: Supervising Physician Co-Signing Physician Notes Patient seen and examined with PGY-1 Dr. Velez. Agree with history, exam findings, assessment and plan of care as outlined with the following updates: In brief, Mr. Cardenas is a 58 year old male with history of sarcoidosis admitted with worsening cough, dyspnea, and new O2 requirement, found to have multifocal pneumonia and new cavitary lesion on chest CT. Still coughing, feeling about the same. Vital signs and nursing notes reviewed. Lungs with scattered ronchi and rales in all lung galvan. + accessory muscle use. 1. bilateral multifocal pneumonia with left upper lobe cavitary lesion in the setting of known sarcoidosis. - continue ceftriaxone and azithromycin, steroids added by pulm as well. Procal neg. - quantiferon gold is pending, resp precautions. - transferred to ICU for increased work of breathing. Appreciate critcal care and pulm recommendations. - requested records from [facility] in [place] for bronch results at time of sacroidosis diagnosis 2. Elevated trop. EKG without ischemic changes. Likely demand ischemia. Trops trending down. - Echo with mild LVH and elevated pulm artery pressures. 3. Hypertension, uncontrolled. Started on amlodipine 10mg, added coreg. Will likely need to adjust this. Suspect there is an element of undiagnosed HTN and DEEPALI. 4. KRISTINA, unsure of baseline, but in the setting of undiagnosed HTN, may have some element of CKD as well. Renal ultrasound unremarkable. 5. PreDM. Monitor sugars. Dispo: pending clinical improvement. 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 Will need records sent to PCP in the [place] and will likely need physician's note for work. Subjective Pt without acute events overnight. Still with profound shortness of breath and states he is beginning "to feel tired from the coughing and heavy breathing". No subjective fevers or chills, no CP, palpitations. Pt reports feeling "about the same" with regard to his trouble breathing. Review of Systems Constitutional: no fever, no chills and no malaise Respiratory: + cough and + dyspnea Cardiovascular: no chest pain, no palpitations and no edema Gastrointestinal: no abdominal pain, no constipation and no diarrhea/loose stools Physical Exam Constitutional: WD/WN, vitals as above Respiratory: pt with diffuse rales and rhonchi throughout. Increased work of breathing, belly breathing. Cardiovascular: RRR, no murmur, no edema Gastrointestinal (Abdomen): normal bowel sounds, soft, nontender, no hep atosplenomegaly Skin: no rashes, warm and dry Psychiatric: A+Ox3, euthymic affect Results & Data Vital Signs (Past 12 Hours) Vital Signs Temp Pulse Pulse Resp BP Pulse Ox 07/27/19 07:55 95 H 30 H 95 07/27/19 06:00 85 30 H 162/94 H 92 07/27/19 05:52 94 H 164/101 H 07/27/19 05:00 93 H 28 H 169/108 H 92 07/27/19 04:32 95 H 30 H 86 L 07/27/19 04:30 103 H 21 87 L 07/27/19 04:00 65 22 168/104 H 93 07/27/19 03:10 93 H 26 H 97 07/27/19 03:00 69 22 165/98 H 91 07/27/19 02:00 75 24 155/89 H 93 07/27/19 01:21 83 28 H 167/100 H 95 07/27/19 01:09 91 H 07/27/19 00:12 101 H 183/115 H 07/27/19 00:06 36.8 C 106 H 24 183/115 H 93 07/26/19 23:50 100 H 28 H 94 07/26/19 23:00 103 H 38 H 169/103 H 92 07/26/19 22:00 100 H 36 H 160/98 H 94 07/26/19 21:00 90 34 H 94 Laboratory Results Laboratory Results - last 24 hr 07/27/19 07/27/19 07/27/19 04:21 04:21 12:19 WBC 12.12 H RBC 4.80 Hgb 13.6 L Hct 40.6 L MCV 84.6 MCH 28.3 MCHC 33.5 RDW Std Deviation 47.3 H RDW Coeff of Tal 15.3 H Plt Count 216 MPV 10.9 H Immature Gran % (Auto) 0.2 Neut % (Auto) 90.2 Lymph % (Auto) 4.5 Thayer % (Auto) 5.1 Eos % (Auto) 0.0 Baso % (Auto) 0.0 Immature Gran # (Auto) 0.03 H Neut # (Auto) 10.92 H Lymph # (Auto) 0.55 L Thayer # (Auto) 0.62 H Eos # (Auto) 0.00 Baso # (Auto) 0.00 Sodium 144 Potassium 4.8 Chloride 118 H Carbon Dioxide 21 Anion Gap 5.0 BUN 36 H Creatinine 2.90 H Est Cr Clr Drug Dosing 31.1 Est GFR ( Amer) 26.6 Est GFR (Non-Af Amer) 23.0 BUN/Creatinine Ratio 12.4 Glucose 122 H POC Glucose 101 H Calcium 8.7 07/27/19 17:04 WBC RBC Hgb Hct MCV MCH MCHC RDW Std Deviation RDW Coeff of Tal Plt Count MPV Immature Gran % (Auto) Neut % (Auto) Lymph % (Auto) Thayer % (Auto) Eos % (Auto) Baso % (Auto) Immature Gran # (Auto) Neut # (Auto) Lymph # (Auto) Thayer # (Auto) Eos # (Auto) Baso # (Auto) Sodium Potassium Chloride Carbon Dioxide Anion Gap BUN Creatinine Est Cr Clr Drug Dosing Est GFR ( Amer) Est GFR (Non-Af Amer) BUN/Creatinine Ratio Glucose POC Glucose 101 H Calcium Medications Administered Current Medications Acetaminophen (Tylenol) 650 mg PO Q4H PRN PRN Reason: Pain or Fever Stop: 08/25/19 02:42 Al Hydrox/Mg Hydrox/Simethicone (Maalox) 15 ml PO Q4H PRN PRN Reason: Dyspepsia Stop: 08/25/19 02:42 Albuterol (Duoneb) 3 ml NEB QIDR JALEN Stop: 08/25/19 06:59 Last Admin: 07/27/19 15:08 Dose: 3 ml Documented by: Amlodipine Besylate (Norvasc) 10 mg PO QAM [facility] Stop: 08/26/19 08:59 Last Admin: 07/27/19 12:24 Dose: 10 mg Documented by: Carvedilol (Coreg) 3.125 mg PO BID [facility] Stop: 08/26/19 10:14 Last Admin: 07/27/19 12:24 Dose: 3.125 mg Documented by: Heparin Sodium (Porcine) (Heparin Sodium (Porcine)) 5,000 units SC Q12 [facility] Stop: 08/26/19 10:14 Last Admin: 07/27/19 12:24 Dose: 5,000 units Documented by: Ceftriaxone Sodium 2,000 mg/ (Dextrose) 70 mls @ 100 mls/hr IV DAILY@1400 JALEN; Protocol Stop: 08/02/19 13:59 Last Infusion: 07/27/19 13:27 Dose: Infused Documented by: Azithromycin 500 mg/ Dextrose 255 mls @ 125 mls/hr IV DAILY@1300 JALEN; Protocol Stop: 08/02/19 12:59 Last Infusion: 07/27/19 16:04 Dose: Infused Documented by: Methylprednisolone 60 mg/ (Syringe) 0.96 mls @ 1.5 mls/min IV DAILY@1600 JALEN Stop: 08/25/19 15:59 Last Admin: 07/27/19 16:13 Dose: 1.5 mls/min Documented by: Magnesium Hydroxide (Milk Of Magnesia) 30 ml PO Q12H PRN PRN Reason: Constipation Stop: 08/25/19 02:42 Ondansetron HCl (Zofran) 4 mg IV Q6H PRN PRN Reason: Nausea Stop: 08/25/19 02:42 Polyethylene Glycol (Miralax Powder Packet) 17 gm PO DAILY PRN PRN Reason: Constipation Stop: 08/25/19 02:42 Resident Activity Tracking Resident Involvement: Resident Care Provided Care Provided: Adult Hospital Medicine
--- NOTE | 2019-07-27 09:56 | Pulmonology Progress Note ---
Date of Service July 27, 2019 Assessment & Plan (1) Acute hypoxemic respiratory failure: 07/26: Patient appears to have some degree of acute on chronic disease based on his CT of his chest. It would be nice if we could get the imaging from the [facility] where he had a bronchoscopy and a CT chest approximately 7 years ago. He does have bilateral hilar mediastinal adenopathy and upper lobe predominant nodules which would be consistent with sarcoidosis. He does have a cavity in his left upper lobe and occasionally sarcoid can cavitate. He is being evaluated for possible tuberculosis. QuantiFERON gold is pending. I also ordered for an AFB of his sputum. He does have infiltrative changes in the right middle lobe and left lower lobe superior subsegment which are likely related to pneumonia. I did order for procalcitonin. I have changed antibiotics from Zosyn to ceftriaxone and azithromycin. Generally, we do give steroids for sarcoidosis related exacerbations, but given the severity of his pneumonia, I would like to hold off on steroids at this present time. I have also ordered for an ANCA and an KARTIK panel on the off chance that we may be dealing with a pulmonary-renal syndrome. He does not have any significant active urinary sediment so I think this is unlikely. He also has some degree of pulmonary hypertension given his echocardiogram findings likely due to his underlying sarcoidosis and possibly from untreated sleep apnea. He would benefit from a sleep study as an outpatient and potentially a right heart cath as an outpatient when he is stabilized and discharged. He also needs follow-up for his sarcoidosis including eye exams, labs and pu lmonary function testing. He would benefit from an outpatient roving teller. It seems like his home is in [place] and he will need to establish care down there. 07/27: We will hold off on bronchoscopy today given how hypoxemic he is. Continue IV Solu-Medrol 60 mg daily. His creatinine is improving slowly. He is able to make urine. I would hold on fluids or diuresis at this point. He appears to be fairly euvolemic. His procalcitonin was 0.36. I would still recommend continuing antibiotics at this time. Please obtain the records from [facility] regarding his bronchoscopy. QuantiFERON gold is still pending. It does not appear that the sputum culture was obtained nor was a sputum for AFB obtained. Troponin is downtrending. Continue high flow nasal cannula to maintain saturations above 92% for this particular patient. Please note that hypoxemia is the most potent pulmonary vasoconstrictor that there is and he does have underlying pulmonary hypertension likely secondary to sarcoidosis. (2) Sarcoidosis, nodular type: (3) Multifocal pneumonia: (4) Secondary pulmonary hypertension: (5) Renal failure (ARF), acute on chronic: Subjective Patient feels very minimally better. He denies any chest pain. He still continues to cough recurrently. No further hemoptysis. He is currently saturating in the mid 80s on 6 L of humidified oxygen. I did ask for him to be placed back on high flow oxygen. This is communicated to the nurse. Physical Exam Constitutional: WD/WN, vitals as above Eyes: PERRL, conjunctivae normal, anicteric sclerae ENMT: external ear and nose normal, oropharynx normal Neck: normal visual inspection Gastrointestinal (Abdomen): normal bowel sounds, soft, nontender, no hepatosplenomegaly Musculoskeletal: no cyanosis or clubbing, extremities motor strength 5/5 Skin: no rashes, warm and dry Neurologic: PERRL, EOMI, accommodation nl, no face palsy, no dysarthria Psychiatric: A+Ox3, euthymic affect Lymphatic: no cervical or axillary lymphadenopathy Results & Data Vital Signs (Past 12 Hours) Vital Signs Temp Pulse Pulse Resp BP Pulse Ox 07/27/19 09:00 93 H 33 H 89 L 07/27/19 08:45 101 H 22 89 L 07/27/19 08:30 94 H 37 H 93 07/27/19 08:21 84 38 H 157/100 H 92 07/27/19 08:15 103 H 28 H 91 07/27/19 08:00 109 H 24 89 L 07/27/19 07:55 95 H 30 H 95 07/27/19 07:45 75 27 H 93 07/27/19 07:30 97 H 36 H 91 07/27/19 07:21 64 24 162/94 H 95 07/27/19 07:15 68 25 H 94 07/27/19 07:00 79 33 H 91 07/27/19 06:45 69 34 H 93 07/27/19 06:00 85 30 H 162/94 H 92 07/27/19 05:52 94 H 164/101 H 07/27/19 05:00 93 H 28 H 169/108 H 92 07/27/19 04:32 95 H 30 H 86 L 07/27/19 04:30 103 H 21 87 L 07/27/19 04:00 65 22 168/104 H 93 07/27/19 03:10 93 H 26 H 97 07/27/19 03:00 69 22 165/98 H 91 07/27/19 02:00 75 24 155/89 H 93 07/27/19 01:21 83 28 H 167/100 H 95 07/27/19 01:09 91 H 07/27/19 00:12 101 H 183/115 H 07/27/19 00:06 98.2 F 106 H 24 183/115 H 93 07/26/19 23:50 100 H 28 H 94 07/26/19 23:00 103 H 38 H 169/103 H 92 07/26/19 22:00 100 H 36 H 160/98 H 94 PG Care Time/CCT Total # of Minutes Spent Total Time Spent with Patient: Total time spent is greater than 50% in coordination of care (as documented) at patient's floor/unit and/or counseling patient:30
--- NOTE | 2019-07-27 10:36 | XRay Report ---
XR chest 1V portable CLINICAL HISTORY: respiratory distress dyspnea COMPARISON STUDY: 07/25/2019 FINDINGS: Slight improvement in aeration left lung base. Unchanged diffuse parenchymal infiltrative p rocess of the right hemithorax and left upper lung. Mild stable cardiomegaly. IMPRESSION: Diffuse bilateral parenchymal infiltrates essentially unchanged the prior exam. Slight i mprovement of the left lung base. ACT 112: Negative or not required by law. The above report was generated using voice recognition software. It may contain grammatical, syntax or spelling errors. Electronically signed by: Garrison Stephens M.D. 07/27/2019 10:34 AM
[2019-07-27] MEDS: HEPARIN SOD 5,000 UNIT/0.5 ML VIAL SC SCH ×2 (12:24→20:53)
[2019-07-27] MEDS: carvediloL 3.125 MG TAB PO SCH ×2 (12:24→20:53)
[2019-07-27] MEDS: cefTRIAXone SODIUM 2,000 MG in DEXTROSE 5% 50 ML IV SCH (12:24)
[2019-07-27] MEDS: AMLODIPINE BESYLATE 5 MG TAB PO SCH (12:24)
--- NOTE | 2019-07-27 12:30 | Ultrasound Report ---
US renal/blad retro comp HISTORY: Renal insufficiency Concern for renal pathology COMPARISON: None. FINDINGS: Right kidney: Maximum dimension 10.7 cm. No evidence for hydronephrosis. Normal corticomedullary diff erentiation and cortical thickness. Left kidney: Maximum dimension 11.9 cm. No evidence for hydronephrosis. Normal corticomedullary diff erentiation and cortical thickness. Bladder: No bladder wall thickening. The bilateral ureteral jets were identified. IMPRESSION: Normal renal ultrasound. ACT 112: Negative or not required by law. The above report was generated using voice recognition software. It may contain grammatical, syntax or spelling errors. Electronically signed by: Garrison Stephens M.D. 07/27/2019 12:29 PM
[2019-07-27] MEDS: AZITHROMYCIN 500 MG in DEXTROSE 5% 250 ML IV SCH (13:33)
--- NOTE | 2019-07-27 13:41 | Ultrasound Report ---
DOPPLER ULTRASOUND OF THE RENAL ARTERIES CLINICAL HISTORY: Hypertension. COMPARISON STUDY: TECHNIQUE: Doppler sonography of the renal arteries was performed to assess renal artery stenosis. Im ages are reviewed in the transverse and longitudinal planes. FINDINGS: The kidneys appear normal in size and echotexture. There is no hydronephrosis. On the right, intrarenal arterial resistive indices are normal. Intrarenal arterial waveforms are nor mal with brisk upstrokes. The right renal arterial waveform is normal, and velocities within the righ t renal artery measure up to 78 cm/sec. The right renal vein is patent. On the left, intrarenal arterial resistive indices are normal. Intrarenal arterial waveforms are nor mal with brisk upstrokes. The left renal arterial waveform is normal, and velocities within the left renal artery measure up to 65 cm/sec. The left renal vein is patent. The abdominal aorta is patent. Velocities within the abdominal aorta measure up to 92 cm/s. IMPRESSION: There is no sonographic evidence of renal artery stenosis. ACT 112: Negative or not required by law. The above report was generated using voice recognition software. It may contain grammatical, syntax or spelling errors. Electronically signed by: Garrison Stephens M.D. 07/27/2019 1:40 PM
[2019-07-27] MEDS: methylPREDNISolone 60 MG in SYRINGE 0 ML IV SCH (16:13)
[2019-07-27] MEDS ORDERED: METOPROLOL TARTRATE 1 MG/ML VIAL IV STA (16:55)
--- NOTE | 2019-07-27 20:32 | Critical Care Consultation ---
Date of Consultation July 27, 2019 Assessment & Plan (1) Renal failure (ARF), acute on chronic: Reason Critically Ill: 58 year old man with stated history of sarcoidosis on no chronic disease modifying agents here with acute hypoxemic respiratory failure with hemoptysis and possible pneumonia. Neuro: CAM ICU negative Neurovascularly intact No other acute neuro concerns Respiratory: Appears to have possible progressive sarcoidosis in the background of an acute multifocal pneumonia Per Pumonology will give 60 mg daily of prednisone Azithromycin and ceftriaxone for pneumonia MRSA negative d/c vancomycin Awaiting records from [facility] to see tissue diagnosis confirm ation of sarcoidosis Cavitary lesion on CT, could be sarcoid but we will send quantiferon gold to rule out TB until then contact precautions in place Pulm holding on bronchoscopy for now KARTIK and ANCA ordered LEgionella ordered Cardiovascular: No chest pain troponin elevated very minimally, peaked likely secondary to acute illness and renal failure Low concern for acute ischemic disease. No chest pain Echo showing pulmonary hypertension, would likely benefit from a sleep study as an outpatient to see if there is a component of sleep apnea COntinue metoprolol, carvedilol, amlodipine no evidence of renal artery stenosis GI: Starting feeding No other GI concerns ID: Treating with rocephin and azithromycin for pneumonia Legionella ordered MRSA swab negative Renal: Do not know patient's baseline creatinine but 2.8 on admission and peaked at 3,3 down to 2.9 today Concern for goodpastures, will get records from outside hospital Renal U/S normal Urinalysis not concerning for infection Heme Elevated white count today, likely secondary to steroids Patient with strong family history of breast cancer, he tells me every woman on his mom's side has gotten and at a young age from breast cancer, recommend genetic testing for all relatives on that side. Will continue to monitor in ICU, though patient is appearing to stabilize. Hope to decrease Oxygen requirements as acute pneumonia improves. Will get records from outside facility and decide what further workup needs to be started for patient's existing lung disease. Patient will need to establish with pulmonology on regular basis. (2) Secondary pulmonary hypertension: (3) Acute hypoxemic respiratory failure: (4) Multifocal pneumonia: (5) Sarcoidosis, nodular type: (6) Leg swelling: (7) Multifocal pneumonia: (8) Elevated troponin: Supervising Physician Co-Signing Physician Notes Dr. Lopez was resident physician during care of patient. I separately evaluated patient for covarrubias portions of the history and the exam. I was present during the critical portion of medical decision making, and I discussed the case with the resident. I generally agree with the findings and plan. Acute hypoxic respiratory failure, acute on chronic renal failure possibly related to Goodpasture syndrome as we do not have the exact diagnostic work-up done for the sarcoidosis. Patient requiring high flow oxygen to remain in isolation until TB is ruled out: I think this is unlikely. Patient critically ill. I have personally spent 30 minutes of critical care time in the direct management of this patient. This is a life/limb threatening event. This includes time spent evaluating patient, direct bedside care, chart review, placing orders, interpretation of diagnostic studies, discussion with consultants, patient, and/or family members regarding treatment decisions, as well as other required patient management activities. This time is exclusive of all separately billable procedures, and teaching time and separate from and in addition to any other critical care service time. History of Present Illness Reason for Consultation: Hypoxemic Respiratory Failure Requesting Physician: Dr. Tellez Attending Physician: Erma Tariq DO History of Present Illness Keila Cardenas is a 58 year old man with a past medical history significant for apparent sarcoisosis diagnosed several years ago in his home state of [place]. He says at that time he underwent a bronchoscopy and was placed on a course of steroids and was under the impression his sarcoidosis was all gone. He has not been on any medication for it since. He has not been able to exercise or exert himself. He tells me he has been getting progressively short of breath to the point that just changing the hitch on his trailer took him over an hour and a half an exercise that should have taken minutes. He says he is feeling better than he was yesterday but only just. He is denying any further hemoptysis and otherwise he is doing okay. Speaking to him he gets easily out of breath and begins to desaturate after several sentences. He continues to have a recurrent cough particularly on deep breaths. Had conversation about likely progressive nature of sarcoidosis and the need for possible jail therapy. Patient exrpesses he hates taking steroids and would like to avoid taking prednisone if possible. He has a young adult son and at home. He would like to be a full code. Allergies Allergy/AdvReac Type Severity Reaction Status Date / Time No Known Allergies Allergy Verified 07/25/19 22:39 Home Medications Home Medications Medication Instructions Recorded Confirmed Type nqpvnytudzj-lnrjxenhzkx-vmztye 0 ea PO DIRECTED PRN 07/25/19 07/25/19 History [[place] Plus Cold (PE)] dextromethorphan-guaifenesin 10 ml PO DIRECTED PRN 07/25/19 07/25/19 History [Robitussin Cough-Chest [place] DM] Patient History Medical History (Updated 07/29/19 @ 11:38 by Christiano Tellez MD) Acute hypoxemic respiratory failure Cavitating mass of upper lobe of left lung Multifocal pneumonia Renal failure (ARF), acute on chronic Sarcoidosis, nodular type Secondary pulmonary hypertension Social History Preferred Language: Yakut 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: 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 Hand Required: No Beliefs That Will Affect Care: None Current Living Situation: Spouse Other Information That Helps Us Care for You: No Feels Safe at Home: Yes Safety Concerns: Feels Safe At This Time Smoking Status: Never smoker Do You Dip or Chew Tobacco: No ; Second Hand Exposure: No ; Tobacco Cessation Education Requested by Patient: No Hx Alcohol Use: No Hx Substance Use: No Review of Systems Constitutional: no fever, no chills and no body aches Eyes: no problem reported Respiratory: as per Subjective / HPI Cardiovascular: + dyspnea; no chest pain, no orthopnea and no calf pain Gastrointestinal: no abdominal pain, no nausea, no vomiting, no constipation, no diarrhea/loose stools and no blood in stools Genitourinary: no hematuria Physical Exam Physical Exam: Constitutional: 58 year old man lying in bed comfortably vapo therm in place, no apparent distress Eyes: Anicteric Sclerae, EOMMI bilaterally Respiratory: Lung sounds course rhoncorous, tachypneic, some accessory muscle use Cardiovascular: No murmurs, rubs, skips or gallops, peripheral pulses intact in upper and lower extremities bilaterally GI: Abdomen soft/nontender, no masses detected Skin: Warm Dry and intact MSK: Painful feet bilaterally left worse than right, bony abnormality in right heel. Results & Data Vital Signs (Past 12 Hours) Vital Signs Temp Pulse Pulse Resp BP Pulse Ox 07/27/19 19:51 103 H 22 88 L 07/27/19 19:50 103 H 22 88 L 07/27/19 19:00 36.7 C 88 26 H 165/10 H 90 07/27/19 17:01 95 H 169/103 H 07/27/19 15:11 91 H 28 H 94 07/27/19 14:30 90 30 H 91 07/27/19 14:21 87 39 H 154/89 H 90 07/27/19 14:15 87 32 H 92 07/27/19 14:00 87 33 H 93 07/27/19 13:45 91 H 35 H 92 07/27/19 13:30 91 H 16 92 07/27/19 13:22 104 H 13 166/90 H 91 07/27/19 13:15 100 H 43 H 89 L 07/27/19 13:00 103 H 21 92 07/27/19 12:45 103 H 17 93 07/27/19 12:30 101 H 35 H 92 07/27/19 12:21 107 H 36 H 185/108 H 92 07/27/19 12:15 108 H 19 92 07/27/19 12:00 97 H 17 96 07/27/19 11:59 30 H 95 07/27/19 11:45 101 H 22 93 07/27/19 11:30 87 14 93 07/27/19 11:21 97 H 38 H 168/100 H 94 07/27/19 11:15 96 H 28 H 93 07/27/19 11:00 100 H 25 H 93 07/27/19 10:45 89 39 H 92 07/27/19 10:30 103 H 33 H 92 07/27/19 10:21 98 H 35 H 169/100 H 92 07/27/19 10:15 112 H 27 H 90 07/27/19 10:00 105 H 34 H 91 07/27/19 09:45 102 H 28 H 90 07/27/19 09:30 97 H 24 92 07/27/19 09:21 98 H 23 157/101 H 88 L 07/27/19 09:15 104 H 27 H 82 L 07/27/19 09:00 93 H 33 H 89 L 07/27/19 08:45 101 H 22 89 L 07/27/19 08:30 94 H 37 H 93 Resident Activity Tracking Resident Involvement: Resident Care Provided Care Provided: Adult [facility] Medicine
[2019-07-28 04:35] LABS: Hematocrit (blood only) 39.5 % (42-52); Hemoglobin 13.1 g/dL (14.0-18.0); Immature Granulocytes # (auto) 0.03 K/uL (0.00-0.02); Immature Granulocytes % (auto) 0.3 %; Lymphocytes # (auto) 0.48 K/uL (1.2-3.4); Lymphocytes % (auto) 4.6 %; Mean Corpuscular Hemoglobin 28.7 pg (25-34); Mean Corpuscular Hgb Conc 33.2 g/dL (32-36); Mean Corpuscular Volume 86.4 fL (80-100); Mean Platelet Volume 10.5 fL (7.4-10.4); Monocytes # (auto) 0.61 K/uL (0.11-0.59); Monocytes % (auto) 5.8 %; Neutrophils # (auto) 9.34 K/uL (1.4-6.5); Neutrophils % (auto) 89.3 %; Platelet Count 254 K/uL (130-400); RDW Coefficient of Variation 15.3 % (11.5-14.5); RDW Standard Deviation 48.6 fL (36.4-46.3); Red Blood Count 4.57 M/uL (4.7-6.1); White Blood Count 10.46 K/uL (4.8-10.8)
[2019-07-28 04:56] LABS: Calcium 8.7 mg/dl (8.5-10.1); Creatinine Clr Calc Pharmacy 40.5 ml/min; Est GFR (African American) 36.4; Est GFR (Non-African American) 31.4; Magnesium 2.7 mg/dl (1.8-2.4); Phosphorus 5.1 mg/dl (2.5-4.9); Potassium 4.5 mmol/L (3.5-5.1)
--- NOTE | 2019-07-28 06:45 | Critical Care Progress Note ---
Date of Service July 28, 2019 Assessment & Plan (1) Renal failure (ARF), acute on chronic: Reason Critically Ill: 58 year old man with stated history of sarcoidosis on no chronic disease modifying agents here with acute hypoxemic respiratory failure with hemoptysis and possible pneumonia. Neuro: CAM ICU negative Neurovascularly intact No other acute neuro concerns Respiratory: Appears to have possible progressive sarcoidosis in the background of an acute multifocal pneumonia Per Pumonology will give 60 mg daily of prednisone Azithromycin and ceftriaxone for pneumonia MRSA negative d/c vancomycin Awaiting records from [facility] to see tissue diagnosis confirmation of sarcoidosis Cavitary lesion on CT, could be sarcoid but we will send quantiferon gold to rule out TB until then contact precautions in place Pulm holding on bronchoscopy for now KARTIK and ANCA ordered LEgionella ordered Results still pending Patient is improved clinically today, still requiring high flow nasal cannula, but FiO2 down since last night, cough decreased, and able to converse much more easily Cardiovascular: No chest pain troponin elevated very minimally, peaked likely secondary to acute illness and renal failure Low concern for acute ischemic disease. No chest pain Echo showing pulmonary hypertension, would likely benefit from a sleep study as an outpatient to see if there is a component of sleep apnea COntinue metoprolol, carvedilol, amlodipine no evidence of renal artery stenosis GI: Starting feeding today No other GI concerns ID: Treating with rocephin and azithromycin for pneumonia Legionella ordered MRSA swab negative Renal: Do not know patient's baseline creatinine but 2.8 on admission and peaked at 3,3 down to 2.9 today Concern for goodpastures, will get records from outside hospital Renal U/S normal Urinalysis not concerning for infection Heme Elevated white count today, likely secondary to steroids Patient with strong family history of breast cancer, he tells me every woman on his mom's side has gotten and at a young age from breast cancer, recommend genetic testing for all relatives on that side. Will continue to monitor in ICU, though patient is appearing to stabilize. Hope to decrease Oxygen requirements as acute pneumonia improves. Will get records from outside facility and decide what further workup needs to be started for patient's existing lung disease. Patient will need to establish with pulmonology on regular basis. (2) Secondary pulmonary hypertension: (3) Acute hypoxemic respiratory failure: (4) Multifocal pneumonia: (5) Sarcoidosis, nodular type: (6) Multifocal pneumonia: (7) Elevated troponin: (8) Acute kidney injury: Supervising Physician Co-Signing Physician Notes Dr. Lopez was resident physician during care of patient. I separately evaluated patient for covarrubias portions of the history and the exam. I was present during the critical portion of medical decision making, and I discussed the case with the resident. I generally agree with the findings and plan. Acute hypoxic respiratory failure, subjective improvement, mild decrease in oxygen requirement however still requiring significant supplemental oxygen support. Patient critically ill. Subjective Keila Cardenas tells me he is feeling much better today and breathing much easier, however when giving a sputum sample today he had matt hemoptysis. He denies any other symptoms on full review other than his chronic foot pain. He does tell me he is ravenously hungry and hasn't eaten since Friday. Review of Systems Review of Systems: All systems reviewed & are unremarkable except as noted in HPI & below Physical Exam Physical Exam: Constitutional: 58 year old man appears stated age sitting up in bed in no apparent distress, calm comfortable and cooperative Eyes: Anicteric Sclerae, EOMMI bilaterally Respiratory: Mildly increased work of breathing, Lungs coarse, no accessory muscle use, able to speak longer than yesterday Cardiovascular: heart sounds, dual, regular rate, regular rhythm no murmurs, rubs skips or gallops GI: Abdomen Soft/nontender, no masses, no organomegaly Skin: No rashes warm and dry Results & Data Vital Signs (Past 12 Hours) Vital Signs Temp Pulse Pulse Resp BP Pulse Ox 07/28/19 06:21 83 30 H 161/92 H 95 07/28/19 05:21 63 18 141/82 H 95 07/28/19 05:04 66 24 94 07/28/19 04:21 36.6 C 88 21 143/92 H 94 07/28/19 03:21 70 20 139/84 94 07/28/19 02:02 72 22 96 07/28/19 02:00 83 23 149/93 H 97 07/28/19 01:21 80 22 142/87 H 95 07/28/19 00:21 36.6 C 81 22 151/87 H 94 07/27/19 23:21 78 25 H 146/86 H 94 07/27/19 22:34 93 H 16 95 07/27/19 22:21 93 H 24 145/105 H 93 07/27/19 21:22 99 H 39 H 175/106 H 94 07/27/19 20:21 100 H 34 H 174/108 H 94 07/27/19 19:51 103 H 22 88 L 07/27/19 19:50 103 H 22 88 L 07/27/19 19:00 36.7 C 88 26 H 165/10 H 90 Critical Care Time Critical Care Time: Yes Total Critical Care Time: 30 Resident Activity Tracking Resident Involvement: Resident Care Provided Care Provided: Adult Hospital Medicine
[2019-07-28] MEDS: ALBUT/IPRATROP 3MG/0.5MG NEB 3 ML VIAL NEB SCH ×4 (07:50→20:26)
--- NOTE | 2019-07-28 07:56 | Hospitalist Progress Note ---
Date of Service July 28, 2019 Assessment & Plan (1) Multifocal pneumonia: 58-year-old male with past medical history of sarcoidosis admitted with multifocal pneumonia and acute hypoxemic respiratory failure, now with ? resolving KRISTINA on CKD and hemoptysis with continued increased oxygen demand. Acute hypoxemic respiratory failure in the setting of multifocal pneumonia with cavitary lesion: - Pt with improvement clinically and on exam today, however still with increased oxygen demand and with intermittent hemoptysis. - Pt's O2 saturation 94% on HFNC @ flow rate 30, FiO2 40%. Continue to wean oxygen as tolerated; pt not on home O2 at baseline. For possible bronchoscopy pending records from [facility] where pt had previous bronch about 7 years ago. - Both hilar mediastinal lymphadenopathy and cavitary lesion in LLL can possibly be due to sarcoidosis however ruling out infectious causes. - DVT b/l LE negative for evidence of DVT. - MRSA nares negative. Pt currently on Ceftriaxone/Azithromycin. Pulmonology started pt on daily steroids and transferred to ICU for closer follow up in the setting of acute respiratory failure. Scheduled and PRN DuoNebs. - QuantiFERON pending; AFB sputum ordered. PT NPO after midnight for possible bronchoscopy tomorrow AM. - ANCA and KARTIK panel ordered to r/o pulmonary-renal syndrome. - Per Pulm would benefit from sleep study outpatient given element of pulmonary HTN as well as pulmonology f/u in [place] regarding his sarcoidosis. Elevated troponin: - No personal history of heart attack or stroke, EKG without ST changes; shows sinus tachycardia. - Troponin 0.057 -> 0.065 -> 0.047 this admission. Likely due to demand from severe hypoxia and HTN urgency. No further intervention. - Pt without signs or symptoms of WA. - Echo this AM shows mild LVH, normal EF 60-65%, right ventricular systolic pressure elevation. KRISTINA, possibly on baseline CKD: - Pt's Cr 2.7 -> 3.13 -> 2.90 -> 2.24 this AM. - Unsure of pt's baseline at this time, however likely that this pt has undiagnosed HTN and is pre-diabetic with Hgb A1c 5.9%. May also be an element of sleep apnea. Pt has pulmonary HTN on Echo. - Renally dosing medications; avoiding nephrotoxins. - Pt appears euvolemic and fluids have been d/c'ed. No diuretic due to uncertainty regarding baseline kidney function. HTN: - Pt's BP 140s-160s/90s with amlodipine 10 daily and Coreg 3.125 BID. Pt is without dizziness, headaches, CP, palpitations. 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 - Will discuss further with pt, pt's , and with case management. Prostatitis: - Pt recently treated with "7 days of antibiotics for prostatitis". Pt with polyuria but without hematuria or dysuria. - UA negative for infection this admission. FEN/GI: Regular diet DVT ppx: Heparin 5000u BID CODE STATUS: FULL DISPO: ICU (2) Elevated troponin: (3) Prostatitis: (4) Leg swelling: (5) Acute hypoxemic respiratory failure: (6) Secondary pulmonary hypertension: (7) Renal failure (ARF), acute on chronic: (8) Sarcoidosis, nodular type: Supervising Physician Co-Signing Physician Notes Patient seen and examined with PGY-1 Dr. Velez. Agree with history, exam fin dings, assessment and plan of care as outlined with the following updates: In brief, Mr. Cardenas is a 58 year old male with history of sarcoidosis admitted with worsening cough, dyspnea, and new O2 requirement, found to have multifocal pneumonia and new cavitary lesion on chest CT. Cough improved. Titrating down on O2 settings. Vital signs and nursing notes reviewed. Lungs with scattered ronchi and wheezes but good air movement. 1. bilateral multifocal pneumonia with left upper lobe cavitary lesion in the setting of known sarcoidosis. - continue ceftriaxone, azithromycing and steroids. - quantiferon gold is pending, resp precautions. - transferred to ICU for increased work of breathing, this is improving and expect that we can transfer him out soon. Appreciate critcal care and pulm rec ommendations. - requested records from [facility] in [place] for bronch results at time of sacroidosis diagnosis 2. Elevated trop. EKG without ischemic changes. Likely demand ischemia. Trops trending down. - Echo with mild LVH and elevated pulm artery pressures. 3. Hypertension, uncontrolled. Started on amlodipine 10mg, added coreg 3.125mg BID. Will likely need to adjust this. Suspect there is an element of undiagnosed HTN and DEEPALI. We did discuss that uncontrolled HTN may be an issue with regard to his commercial drivers license and needing to be recertified. 4. KRISTINA, unsure of baseline, but in the setting of undiagnosed HTN, may have some element of CKD as well. Renal ultrasound unremarkable. Cr continues to trend down. 5. PreDM. Monitor sugars. Dispo: pending clinical improvement. 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 Will need records sent to PCP in the [facility] and will likely need physician's note for work. Has short term disability paperwork that he needs completed--we can do this at any time. Subjective This morning while attempting to give sputum sample had episode of matt hemoptysis. No dizziness or headache, no CP, palpitations. feels actually much better today with regard to his coughing and shortness of breath. Able to speak in full sentences without stopping to cough or catch breath. Feels less tired today because he is breathing less heavily. No fevers or chills. Review of Systems Constitutional: no fever, no chills and no malaise Respiratory: + cough (less than yesterday) and + dyspnea (less than yesterday) Cardiovascular: no chest pain, no palpitations and no edema Gastrointestinal: no abdominal pain, no constipation and no diarrhea/loose stools Physical Exam Constitutional: WD/WN, vitals as above Respiratory: Still with diffuse crackles however with good movement of air today in contrast with yesterday Cardiovascular: RRR, no murmur, no edema Gastrointestinal (Abdomen): normal bowel sounds, soft, nontender, no hepatosplenomegaly Skin: no rashes, warm and dry Psychiatric: A+Ox3, euthymic affect Results & Data Vital Signs (Past 12 Hours) Vital Signs Temp Pulse Pulse Resp BP Pulse Ox 07/28/19 07:50 98 H 22 92 07/28/19 07:32 98 H 22 92 07/28/19 06:21 83 30 H 161/92 H 95 07/28/19 05:21 63 18 141/82 H 95 07/28/19 05:04 66 24 94 07/28/19 04:21 36.6 C 88 21 143/92 H 94 07/28/19 03:21 70 20 139/84 94 07/28/19 02:02 72 22 96 07/28/19 02:00 83 23 149/93 H 97 07/28/19 01:21 80 22 142/87 H 95 07/28/19 00:21 36.6 C 81 22 151/87 H 94 07/27/19 23:21 78 25 H 146/86 H 94 07/27/19 22:34 93 H 16 95 07/27/19 22:21 93 H 24 145/105 H 93 07/27/19 21:22 99 H 39 H 175/106 H 94 07/27/19 20:21 100 H 34 H 174/108 H 94 Laboratory Results Laboratory Results - last 24 hr 07/27/19 07/28/19 07/28/19 17:04 00:26 04:23 WBC RBC Hgb Hct MCV MCH MCHC RDW Std Deviation RDW Coeff of Tal Plt Count MPV Immature Gran % (Auto) Neut % (Auto) Lymph % (Auto) Dewitt % (Auto) Eos % (Auto) Baso % (Auto) Immature Gran # (Auto) Neut # (Auto) Lymph # (Auto) Dewitt # (Auto) Eos # (Auto) Baso # (Auto) Sodium 148 H Potassium 4.5 Chloride 120 H Carbon Dioxide 23 Anion Gap 5.0 BUN 40 H Creatinine 2.24 H D Est Cr Clr Drug Dosing 40.5 Est GFR ( Amer) 36.4 Est GFR (Non-Af Amer) 31.4 BUN/Creatinine Ratio 18.0 Glucose 107 H POC Glucose 101 H 118 H Calcium 8.7 Phosphorus 5.1 H Magnesium 2.7 H 07/28/19 07/28/19 04:23 11:52 WBC 10.46 RBC 4.57 L Hgb 13.1 L Hct 39.5 L MCV 86.4 MCH 28.7 MCHC 33.2 RDW Std Deviation 48.6 H RDW Coeff of Tal 15.3 H Plt Count 254 MPV 10.5 H Immature Gran % (Auto) 0.3 Neut % (Auto) 89.3 Lymph % (Auto) 4.6 Dewitt % (Auto) 5.8 Eos % (Auto) 0.0 Baso % (Auto) 0.0 Immature Gran # (Auto) 0.03 H Neut # (Auto) 9.34 H Lymph # (Auto) 0.48 L Dewitt # (Auto) 0.61 H Eos # (Auto) 0.00 Baso # (Auto) 0.00 Sodium Potassium Chloride Carbon Dioxide Anion Gap BUN Creatinine Est Cr Clr Drug Dosing Est GFR ( Amer) Est GFR (Non-Af Amer) BUN/Creatinine Ratio Glucose POC Glucose 103 H Calcium Phosphorus Magnesium Medications Administered Current Medications Acetaminophen (Tylenol) 650 mg PO Q4H PRN PRN Reason: Pain or Fever Stop: 08/25/19 02:42 Al Hydrox/Mg Hydrox/Simethicone (Maalox) 15 ml PO Q4H PRN PRN Reason: Dyspepsia Stop: 08/25/19 02:42 Albuterol (Duoneb) 3 ml NEB QIDR [facility] Stop: 08/25/19 06:59 Last Admin: 07/28/19 10:42 Dose: 3 ml Documented by: Amlodipine Besylate (Norvasc) 10 mg PO QAM [facility] Stop: 08/26/19 08:59 Last Admin: 07/28/19 08:34 Dose: 10 mg Documented by: Carvedilol (Coreg) 3.125 mg PO BID [facility] Stop: 08/26/19 10:14 Last Admin: 07/28/19 08:35 Dose: 3.125 mg Documented by: Heparin Sodium (Porcine) (Heparin Sodium (Porcine)) 5,000 units SC Q12 [facility] Stop: 08/26/19 10:14 Last Admin: 07/28/19 08:56 Dose: Not Given Documented by: Ceftriaxone Sodium 2,000 mg/ (Dextrose) 70 mls @ 100 mls/hr IV DAILY@1400 JALEN; Protocol Stop: 08/02/19 13:59 Last Infusion: 07/28/19 14:07 Dose: Infused Documented by: Azithromycin 500 mg/ Dextrose 255 mls @ 125 mls/hr IV DAILY@1300 JALEN; Protocol Stop: 08/02/19 12:59 Last Infusion: 07/28/19 14:07 Dose: 125 mls/hr Documented by: Methylprednisolone 60 mg/ (Syringe) 0.96 mls @ 1.5 mls/min IV DAILY@1600 JALEN Stop: 08/25/19 15:59 Last Admin: 07/27/19 16:13 Dose: 1.5 mls/min Documented by: Magnesium Hydroxide (Milk Of Magnesia) 30 ml PO Q12H PRN PRN Reason: Constipation Stop: 08/25/19 02:42 Ondansetron HCl (Zofran) 4 mg IV Q6H PRN PRN Reason: Nausea Stop: 08/25/19 02:42 Polyethylene Glycol (Miralax Powder Packet) 17 gm PO DAILY PRN PRN Reason: Constipation Stop: 08/25/19 02:42 Resident Activity Tracking Resident Involvement: Resident Care Provided Care Provided: Adult Hospital Medicine
[2019-07-28] MEDS: AMLODIPINE BESYLATE 5 MG TAB PO SCH (08:34)
[2019-07-28] MEDS: HEPARIN SOD 5,000 UNIT/0.5 ML VIAL SC SCH ×3 (08:35→20:00)
[2019-07-28] MEDS: carvediloL 3.125 MG TAB PO SCH ×2 (08:35→19:59)
--- NOTE | 2019-07-28 09:50 | XRay Report ---
SINGLE VIEW CHEST CLINICAL HISTORY: Dyspnea. FINDINGS: An AP, portable, upright chest radiograph is compared to study dated 07/27/2019 and correla franco with chest CT dated 07/25/2019. The examination is degraded by portable technique and patient rot ation. The heart is enlarged. There is pulmonary vascular congestion. Hazy bilateral airspace opaciti es are noted, with more confluent consolidation seen in the right upper lobe. Small pleural effusion s are noted. No pneumothorax is seen. The skeletal structures are osteopenic. The bony thorax is mary kate sly intact. IMPRESSION: 1. Cardiomegaly with evidence of congestive failure. 2. Bilateral hazy airspace opacities are similar in appearance to yesterday. This could represent int erstitial edema and/or multifocal pneumonia. Clinical correlation will be required. ACT 112: Negative or not required by law. Electronically signed by: Ricardo Lee M.D. 07/28/2019 9:49 AM
--- NOTE | 2019-07-28 12:09 | Pulmonology Progress Note ---
Date of Service July 28, 2019 Assessment & Plan (1) Acute hypoxemic respiratory failure: 07/26: Patient appears to have some degree of acute on chronic disease based on his CT of his chest. It would be nice if we could get the imaging from the [facility] where he had a bronchoscopy and a CT chest approximately 7 years ago. He does have bilateral hilar mediastinal adenopathy and upper lobe predominant nodules which would be consistent with sarcoidosis. He does have a cavity in his left upper lobe and occasionally sarcoid can cavitate. He is being evaluated for possible tuberculosis. QuantiFERON gold is pending. I also ordered for an AFB of his sputum. He does have infiltrative changes in the right middle lobe and left lower lobe superior subsegment which are likely related to pneumonia. I did order for procalcitonin. I have changed antibiotics from Zosyn to ceftriaxone and azithromycin. Generally, we do give steroids for sarcoidosis related exacerbations, but given the severity of his pneumonia, I would like to hold off on steroids at this present time. I have also ordered for an ANCA and an KARTIK panel on the off chance that we may be dealing with a pulmonary-renal syndrome. He does not have any significant active urinary sediment so I think this is unlikely. He also has some degree of pulmonary hypertension given his echocardiogram findings likely due to his underlying sarcoidosis and possibly from untreated sleep apnea. He would benefit from a sleep study as an outpatient and potentially a right heart cath as an outpatient when he is stabilized and discharged. He also needs follow-up for his sarcoidosis including eye exams, labs and pulm onary function testing. He would benefit from an outpatient striper machine. It seems like his home is in [place] and he will need to establish care down there. 07/27: We will hold off on bronchoscopy today given how hypoxemic he is. Continue IV Solu-Medrol 60 mg daily. His creatinine is improving slowly. He is able to make urine. I would hold on fluids or diuresis at this point. He a ppears to be fairly euvolemic. His procalcitonin was 0.36. I would still recommend continuing antibiotics at this time. Please obtain the records from [facility] regarding his bronchoscopy. QuantiFERON gold is still pending. It does not appear that the sputum culture was obtained nor was a sputum for AFB obtained. Troponin is downtrending. Continue high flow nasal cannula to maintain saturations above 92% for this particular patient. Please note that hypoxemia is the most potent pulmonary vasoconstrictor that there is and he does have underlying pulmonary hypertension likely secondary to sarcoidosis. 07/28/19: Patient is continued to improve today. He is still requiring high amounts of high flow oxygen and his FiO2 is down to 40%. Continue IV steroids and antibiotics. Awaiting records from [facility] regarding his review his bronchoscopy. QuantiFERON gold and AFB smears are pending. I have ordered for third AFB smear today. Continue high flow oxygen and avoid hypoxemia of less than 90%. Creatinine continues to improve. Autoimmune serologies pending. His sodium is a bit elevated likely due to insensible free water losses related to his tachypnea. He is taking in good p.o. intake now and this should correct on its own. I would prefer that he stay in the ICU for today with possible transfer tomorrow. (2) Sarcoidosis, nodular type: (3) Multifocal pneumonia: (4) Secondary pulmonary hypertension: (5) Renal failure (ARF), acute on chronic: Subjective Patient feeling substantially improved today. He has a good appetite and finished his lunch. The shortness of breath is improved and his coughing is also improved. He is sitting up in the bed. He is currently on 40 L and 40% FiO2 utilizing the Vapotherm. Physical Exam Neck: normal visual inspection Respiratory: Tachypneic. Minimal rhonchi bilaterally. Cardiovascular: RRR, no murmur, no edema Gastrointestinal (Abdomen): normal bowel sounds, soft, nontender, no hepatosplenomegaly Skin: no rashes, warm and dry Neurologic: CN's II-XI intact bilaterally Lymphatic: no cervical or axillary lymphadenopathy Results & Data Vital Signs (Past 12 Hours) Vital Signs Temp Pulse Pulse Resp BP Pulse Ox 07/28/19 10:44 72 20 93 07/28/19 10:43 72 20 93 07/28/19 07:50 98 H 22 92 07/28/19 07:32 98 H 22 92 07/28/19 06:21 83 30 H 161/92 H 95 07/28/19 05:21 63 18 141/82 H 95 07/28/19 05:04 66 24 94 07/28/19 04:21 97.9 F 88 21 143/92 H 94 07/28/19 03:21 70 20 139/84 94 07/28/19 02:02 72 22 96 07/28/19 02:00 83 23 149/93 H 97 07/28/19 01:21 80 22 142/87 H 95 07/28/19 00:21 97.9 F 81 22 151/87 H 94 PG Care Time/CCT Total # of Minutes Spent Total Time Spent with Patient: Total time spent is greater than 50% in coordination of care (as documented) at patient's floor/unit and/or counseling patient:
[2019-07-28] MEDS: cefTRIAXone SODIUM 2,000 MG in DEXTROSE 5% 50 ML IV SCH (13:24)
[2019-07-28] MEDS: AZITHROMYCIN 500 MG in DEXTROSE 5% 250 ML IV SCH (13:58)
[2019-07-28] MEDS: methylPREDNISolone 60 MG in SYRINGE 0 ML IV SCH (16:20)
[2019-07-29 04:36] LABS: Hematocrit (blood only) 41.8 % (42-52); Hemoglobin 13.8 g/dL (14.0-18.0); Immature Granulocytes # (auto) 0.03 K/uL (0.00-0.02); Immature Granulocytes % (auto) 0.3 %; Lymphocytes # (auto) 0.39 K/uL (1.2-3.4); Lymphocytes % (auto) 4.5 %; Mean Corpuscular Hemoglobin 28.3 pg (25-34); Mean Corpuscular Volume 85.7 fL (80-100); Monocytes # (auto) 0.38 K/uL (0.11-0.59); Monocytes % (auto) 4.4 %; Neutrophils # (auto) 7.91 K/uL (1.4-6.5); Neutrophils % (auto) 90.8 %; Platelet Count 240 K/uL (130-400); RDW Coefficient of Variation 15.1 % (11.5-14.5); RDW Standard Deviation 47.3 fL (36.4-46.3); Red Blood Count 4.88 M/uL (4.7-6.1); White Blood Count 8.71 K/uL (4.8-10.8)
[2019-07-29 04:56] LABS: BUN Creatinine Ratio 18.4 (10-20); Calcium 8.3 mg/dl (8.5-10.1); Creatinine Clr Calc Pharmacy 42.5 ml/min; Est GFR (African American) 39.5; Est GFR (Non-African American) 34.1; Magnesium 2.6 mg/dl (1.8-2.4); Potassium 4.6 mmol/L (3.5-5.1)
[2019-07-29 05:18] LABS: Phosphorus 3.9 mg/dl (2.5-4.9)
--- NOTE | 2019-07-29 06:19 | Critical Care Progress Note ---
Date of Service July 29, 2019 Assessment & Plan (1) Renal failure (ARF), acute on chronic: Reason Critically Ill: 58 year old man with stated history of sarcoidosis on no chronic disease modifying agents here with acute hypoxemic respiratory failure with hemoptysis and possible pneumonia. Neuro: CAM ICU negative Neurovascularly intact No other acute neuro concerns Respiratory: Appears to have possible progressive sarcoidosis in the background of an acute multifocal pneumonia Per Pumonology will transitioning to 40 mg daily of prednisone Azithromycin and ceftriaxone for pneumonia MRSA negative d/c vancomycin Awaiting records from [facility] to see tissue diagnosis co nfirmation of sarcoidosis Cavitary lesion on CT, could be sarcoid but we will send quantiferon gold to rule out TB 3 sputum samples collected and negative gram stain KARTIK and ANCA ordered LEgionella ordered Results still pending Patient is improved clinically today, still requiring high flow nasal cannula, but FiO2 down since last night, cough decreased, and able to converse much more easily Cardiovascular: No chest pain troponin elevated very minimally, peaked likely secondary to acute hypoxia and renal failure Low concern for acute ischemic disease. No chest pain Echo showing pulmonary hypertension, would likely benefit from a sleep study as an outpatient to see if there is a component of sleep apnea COntinue metoprolol, carvedilol, amlodipine no evidence of renal artery stenosis GI: Resumed PO diet No other GI concerns ID: Treating with rocephin and azithromycin for pneumonia Legionella ordered MRSA swab negative Renal: creatinine greatly improved today down to 2.09 Concern for goodpastures,pulmonary renal autoimmune syndromes will get records from outside hospital ANCA and p ANCA pending Renal U/S normal Urinalysis not concerning for infection Heme Elevated white count today, secondary to pneumonia and steroids Patient with strong family history of breast cancer, he tells me every woman on his mom's side has gotten and at a young age from breast cancer, recommend genetic testing for all relatives on that side. Able to step down to PCU (2) Secondary pulmonary hypertension: (3) Acute hypoxemic respiratory failure: (4) Multifocal pneumonia: (5) Sarcoidosis, nodular type: (6) Elevated troponin: (7) Acute kidney injury: Supervising Physician Co-Signing Physician Notes Dr. Lopez was resident physician during care of patient. I separately evaluated patient for covarrubias portions of the history and the exam. I was present during the critical portion of medical decision making, and I discussed the case with the resident. I generally agree with the findings and plan. Decreasing oxygen requirements, able to, out of isolation precautions certainly remains ill with acute hypoxic respiratory failure. Stable for downgrade out of ICU. Subjective No major changes overnight, patient continues to feel subjectively better, requiring less FiO2 on high flow nasal cannula Review of Systems Review of Systems: All systems reviewed & are unremarkable except as noted in HPI & below Physical Exam Physical Exam: Constitutional: 58 year old man appears stated age sitting up in bed in no apparent distress, calm comfortable and cooperative Eyes: Anicteric Sclerae, EOMMI bilaterally Respiratory: Mildly increased work of breathing, Lungs coarse, no accessory muscle use, able to speak longer than yesterday Cardiovascular: heart sounds, dual, regular rate, regular rhythm no murmurs, rubs skips or gallops GI: Abdomen Soft/nontender, no masses, no organomegaly Skin: No rashes warm and dry Results & Data Vital Signs (Past 12 Hours) Vital Signs Temp Pulse Pulse Resp BP Pulse Ox 07/29/19 05:22 55 L 17 145/88 H 98 07/29/19 04:22 36.6 C 57 L 18 146/88 H 97 07/29/19 03:22 56 L 18 142/83 H 97 07/29/19 02:22 58 L 20 134/81 97 07/29/19 02:07 87 22 94 07/29/19 01:22 61 19 136/78 98 07/29/19 00:22 37.0 C 74 24 160/95 H 96 07/28/19 23:33 95 H 20 95 07/28/19 23:22 63 21 140/79 95 07/28/19 22:22 68 22 135/81 95 07/28/19 21:22 70 25 H 139/81 96 07/28/19 20:25 103 H 22 94 07/28/19 20:22 99 H 24 150/79 H 99 07/28/19 20:12 36.8 C 106 H 23 170/91 H 91 07/28/19 20:00 69 07/28/19 19:22 103 H 39 H 181/119 H 91 07/28/19 19:18 97 H 38 H 159/92 H 93 07/28/19 18:22 78 31 H 159/92 H 92 Resident Activity Tracking Resident Involvement: Resident Care Provided Care Provided: Adult [facility] Medicine
--- NOTE | 2019-07-29 06:57 | Hospitalist Progress Note ---
Date of Service July 29, 2019 Assessment & Plan (1) Multifocal pneumonia: 58-year-old male with past medical history of sarcoidosis admitted with multifocal pneumonia and acute hypoxemic respiratory failure, now with ? resolving KRISTINA on CKD and with gradual improvement in oxygen demand; for transfer to PCU. Acute hypoxemic respiratory failure in the setting of multifocal pneumonia with cavitary lesion: - Pt with improvement clinically and on exam today; now on HFNC at flow 15, FiO2 35% with good saturation. Decrease in work of breathing as compared to his previous. Continue to wean oxygen as tolerated; pt not on home O2 at baseline and may need going home for a time. Still have not received records from outside hospital. - Pt currently on Ceftriaxone/Azithromycin for pneumonia. Per Pulmonology now on PO prednisone 40mg daily with tapering over the next month. - QuantiFERON and AFBs to date negative; pt taken off of aspiration precautions. To transfer out of ICU - ANCA and KARTIK panel pending to r/o pulmonary-renal syndrome. - Will need follow up chest CT in 6 weeks. KRISTINA, possibly on baseline CKD: - Pt's Cr 2.7 -> 3.13 -> 2.90 -> 2.24 -> 2.09 this AM. - Unsure of pt's baseline at this time, however likely that this pt has some element of underlying CKD: has undiagnosed HTN and is pre-diabetic with Hgb A1c 5.9%. May also be an element of sleep apnea. Pt has pulmonary HTN on Echo. - Renally dosing medications; avoiding nephrotoxins. - Hydration PO; pt appears euvolemic. HTN: - Pt's BP 150s-160s/90s despite amlodipine 10 daily and Coreg 3.125 BID. Pt is without dizziness, headaches, CP, palpitations. - Have increased Coreg to 6.25 BID as of this afternoon and will continue to monitor BP. 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 - Will discuss further with pt, pt's , and with case management. Elevated troponin: - Resolved. - No personal history of heart attack or stroke, EKG without ST changes; shows sinus tachycardia. - Troponin 0.057 -> 0.065 -> 0.047 this admission. Likely due to demand from severe hypoxia and HTN urgency. No further intervention. - Pt without signs or symptoms of NC. - Echo this AM shows mild LVH, normal EF 60-65%, right ventricular systolic pressure elevation. FEN/GI: Regular diet DVT ppx: Heparin 5000u BID CODE STATUS: FULL DISPO: PCU telemetry (2) Elevated troponin: (3) Prostatitis: (4) Leg swelling: (5) Acute hypoxemic respiratory failure: (6) Secondary pulmonary hypertension: (7) Renal failure (ARF), acute on chronic: (8) Sarcoidosis, nodular type: Supervising Physician Co-Signing Physician Notes Patient seen and examined with PGY-1 Dr. Velez. Agree with history, exam findings, assessment and plan of care as outlined with the following updates: In brief, Mr. Cardenas is a 58 year old male with history of sarcoidosis admitted with worsening cough, dyspnea, and new O2 requirement, found to have multifocal pneumonia and new cavitary lesion on chest CT. Cough improved. Titrating down on O2 settings. Vital signs and nursing notes reviewed. Lungs with good air movement today. Do not appreciate ronchi or wheezes. 1. bilateral multifocal pneumonia with left upper lobe cavitary lesion in the setting of known sarcoidosis. - continue ceftriaxone, azithromycin and steroids. Continue to titrate down on O2 as able. - quantiferon gold is negative. - requested records from [facility] in [place] for bronch results at time of sacroidosis diagnosis--no records per [facility]. Will see if there is another facility that he remembers. - appreciate pulm assistance with management. 2. Elevated trop. EKG without ischemic changes. Likely demand ischemia. Trop peaked and downtrended. - Echo with mild LVH and elevated pulm artery pressures. 3. Hypertension, uncontrolled. Started on amlodipine 10mg, increased to coreg 6.25mg BID. Will likely need to adjust this. Suspect there is an element of undiagnosed HTN and DEEPALI. 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 4. KRISTINA, unsure of baseline, but in the setting of undiagnosed HTN, may have some element of CKD as well. Renal ultrasound unremarkable. Cr continues to trend down. Cr on admission3.13-->2.09 today. 5. PreDM. Monitor sugars. Dispo: pending clinical improvement. Subjective Pt without acute events overnight. Feels "like he has energy for the first time in days". Minimal SOB on HFNC. No CP, palpitations, abdominal pain, nausea, vomiting, changes in bowels or bladder. Review of Systems Constitutional: no fever, no chills and no malaise Respiratory: + dyspnea; no cough Cardiovascular: no chest pain, no palpitations and no edema Gastrointestinal: no abdominal pain, no constipation and no diarrhea/loose stools Physical Exam Constitutional: WD/WN, vitals as above Respiratory: normal respiratory effort, lungs clear to auscultation Cardiovascular: RRR, no murmur, no edema Gastrointestinal (Abdomen): normal bowel sounds, soft, nontender, no hepatosplenomegaly Skin: no rashes, warm and dry Psychiatric: A+Ox3, euthymic affect Results & Data Vital Signs (Past 12 Hours) Vital Signs Temp Pulse Pulse Resp BP Pulse Ox 07/29/19 06:22 58 L 16 156/85 H 99 07/29/19 05:22 55 L 17 145/88 H 98 07/29/19 04:22 36.6 C 57 L 18 146/88 H 97 07/29/19 03:22 56 L 18 142/83 H 97 07/29/19 02:22 58 L 20 134/81 97 07/29/19 02:07 87 22 94 07/29/19 01:22 61 19 136/78 98 07/29/19 00:22 37.0 C 74 24 160/95 H 96 07/28/19 23:33 95 H 20 95 07/28/19 23:22 63 21 140/79 95 07/28/19 22:22 68 22 135/81 95 07/28/19 21:22 70 25 H 139/81 96 07/28/19 20:25 103 H 22 94 07/28/19 20:22 99 H 24 150/79 H 99 07/28/19 20:12 36.8 C 106 H 23 170/91 H 91 07/28/19 20:00 69 07/28/19 19:22 103 H 39 H 181/119 H 91 07/28/19 19:18 97 H 38 H 159/92 H 93 Laboratory Results Laboratory Results - last 24 hr 07/26/19 07/28/19 07/29/19 11:35 22:37 04:30 WBC 8.71 RBC 4.88 Hgb 13.8 L Hct 41.8 L MCV 85.7 MCH 28.3 MCHC 33.0 RDW Std Deviation 47.3 H RDW Coeff of Tal 15.1 H Plt Count 240 MPV 11.0 H Immature Gran % (Auto) 0.3 Neut % (Auto) 90.8 Lymph % (Auto) 4.5 [place] % (Auto) 4.4 Eos % (Auto) 0.0 Baso % (Auto) 0.0 Immature Gran # (Auto) 0.03 H Neut # (Auto) 7.91 H Lymph # (Auto) 0.39 L [place] # (Auto) 0.38 Eos # (Auto) 0.00 Baso # (Auto) 0.00 Sodium Potassium Chloride Carbon Dioxide Anion Gap BUN Creatinine Est Cr Clr Drug Dosing Est GFR ( Amer) Est GFR (Non-Af Amer) BUN/Creatinine Ratio Glucose POC Glucose 142 H Calcium Phosphorus Magnesium Glomerular Base Memb Ab TB Test (QFT) Gold Plus NEGATIVE TB Test (QFT) Nil 0.01 TB Test Mitogen - Nil 7.51 TB Test Ag - Nil 1 0.00 TB Test Ag - Nil 2 0.00 07/29/19 07/29/19 04:30 10:49 WBC RBC Hgb Hct MCV MCH MCHC RDW Std Deviation RDW Coeff of Tal Plt Count MPV Immature Gran % (Auto) Neut % (Auto) Lymph % (Auto) [place] % (Auto) Eos % (Auto) Baso % (Auto) Immature Gran # (Auto) Neut # (Auto) Lymph # (Auto) [place] # (Auto) Eos # (Auto) Baso # (Auto) Sodium 143 Potassium 4.6 Chloride 118 H Carbon Dioxide 24 Anion Gap 1.0 L BUN 38 H Creatinine 2.09 H Est Cr Clr Drug Dosing 42.5 Est GFR ( Amer) 39.5 Est GFR (Non-Af Amer) 34.1 BUN/Creatinine Ratio 18.4 Glucose 130 H POC Glucose Calcium 8.3 L Phosphorus 3.9 D Magnesium 2.6 H Glomerular Base Memb Ab Pending TB Test (QFT) Gold Plus TB Test (QFT) Nil TB Test Mitogen - Nil TB Test Ag - Nil 1 TB Test Ag - Nil 2 Medications Administered Current Medications Acetaminophen (Tylenol) 650 mg PO Q4H PRN PRN Reason: Pain or Fever Stop: 08/25/19 02:42 Al Hydrox/Mg Hydrox/Simethicone (Maalox) 15 ml PO Q4H PRN PRN Reason: Dyspepsia Stop: 08/25/19 02:42 Albuterol (Duoneb) 3 ml NEB QIDR [facility] Stop: 08/25/19 06:59 Last Admin: 07/29/19 14:49 Dose: 3 ml Documented by: Amlodipine Besylate (Norvasc) 10 mg PO QAM [facility] Stop: 08/26/19 08:59 Last Admin: 07/29/19 08:48 Dose: 10 mg Documented by: Heparin Sodium (Porcine) (Heparin Sodium (Porcine)) 5,000 units SC Q12 [facility] Stop: 08/26/19 10:14 Last Admin: 07/29/19 08:48 Dose: 5,000 units Documented by: Ceftriaxone Sodium 2,000 mg/ (Dextrose) 70 mls @ 100 mls/hr IV DAILY@1400 [facility]; Protocol Stop: 08/02/19 13:59 Last Infusion: 07/28/19 14:07 Dose: Infused Documented by: Azithromycin 500 mg/ Dextrose 255 mls @ 125 mls/hr IV DAILY@1300 [facility]; Protocol Stop: 08/02/19 12:59 Last Infusion: 07/28/19 16:17 Dose: Infused Documented by: Magnesium Hydroxide (Milk Of Magnesia) 30 ml PO Q12H PRN PRN Reason: Constipation Stop: 08/25/19 02:42 Ondansetron HCl (Zofran) 4 mg IV Q6H PRN PRN Reason: Nausea Stop: 08/25/19 02:42 Polyethylene Glycol (Miralax Powder Packet) 17 gm PO DAILY PRN PRN Reason: Constipation Stop: 08/25/19 02:42 Prednisone (Prednisone) 40 mg PO DAILY [facility] Stop: 08/29/19 08:59 Resident Activity Tracking Resident Involvement: Resident Care Provided Care Provided: Adult Hospital Medicine
[2019-07-29] MEDS: ALBUT/IPRATROP 3MG/0.5MG NEB 3 ML VIAL NEB SCH ×4 (07:52→19:35)
[2019-07-29] MEDS: HEPARIN SOD 5,000 UNIT/0.5 ML VIAL SC SCH ×2 (08:48→20:34)
[2019-07-29] MEDS: AMLODIPINE BESYLATE 5 MG TAB PO SCH (08:48)
[2019-07-29] MEDS: carvediloL 3.125 MG TAB PO SCH (08:48)
[2019-07-29 10:55] LABS: Quantiferon Mitogen-NIL 7.51 IU/mL; Quantiferon NIL 0.01 IU/mL; Quantiferon TB Gold Plus NEGATIVE (NEGATIVE)
--- NOTE | 2019-07-29 11:38 | Pulmonology Progress Note ---
Date of Service July 29, 2019 Assessment & Plan (1) Acute hypoxemic respiratory failure: 07/26: Patient appears to have some degree of acute on chronic disease based on his CT of his chest. It would be nice if we could get the imaging from the [facility] where he had a bronchoscopy and a CT chest approximately 7 years ago. He does have bilateral hilar mediastinal adenopathy and upper lobe predominant nodules which would be consistent with sarcoidosis. He does have a cavity in his left upper lobe and occasionally sarcoid can cavitate. He is being evaluated for possible tuberculosis. QuantiFERON gold is pending. I also ordered for an AFB of his sputum. He does have infiltrative changes in the right middle lobe and left lower lobe superior subsegment which are likely related to pneumonia. I did order for procalcitonin. I have changed antibiotics from Zosyn to ceftriaxone and azithromycin. Generally, we do give steroids for sarcoidosis related exacerbations, but given the severity of his pneumonia, I would like to hold off on steroids at this present time. I have also ordered for an ANCA and an KARTIK panel on the off chance that we may be dealing with a pulmonary-renal syndrome. He does not have any significant active urinary sediment so I think this is unlikely. He also has some degree of pulmonary hypertension given his echocardiogram findings likely due to his underlying sarcoidosis and possibly from untreated sleep apnea. He would benefit from a sleep study as an outpatient and potentially a right heart cath as an outpatient when he is stabilized and discharged. He also needs follow-up for his sarcoidosis including eye exams, labs and pulm onary function testing. He would benefit from an outpatient analog ic design engineer. It seems like his home is in [place] and he will need to establish care down there. 07/27: We will hold off on bronchoscopy today given how hypoxemic he is. Continue IV Solu-Medrol 60 mg daily. His creatinine is improving slowly. He is able to make urine. I would hold on fluids or diuresis at this point. He a ppears to be fairly euvolemic. His procalcitonin was 0.36. I would still recommend continuing antibiotics at this time. Please obtain the records from [facility] regarding his bronchoscopy. QuantiFERON gold is still pending. It does not appear that the sputum culture was obtained nor was a sputum for AFB obtained. Troponin is downtrending. Continue high flow nasal cannula to maintain saturations above 92% for this particular patient. Please note that hypoxemia is the most potent pulmonary vasoconstrictor that there is and he does have underlying pulmonary hypertension likely secondary to sarcoidosis. 07/28/19: Patient is continued to improve today. He is still requiring high amounts of high flow oxygen and his FiO2 is down to 40%. Continue IV steroids and antibiotics. Awaiting records from [facility] regarding his review his bronchoscopy. QuantiFERON gold and AFB smears are pending. I have ordered for third AFB smear today. Continue high flow oxygen and avoid hypoxemia of less than 90%. Creatinine continues to improve. Autoimmune serologies pending. His sodium is a bit elevated likely due to insensible free water losses related to his tachypnea. He is taking in good p.o. intake now and this should correct on its own. I would prefer that he stay in the ICU for today with possible transfer tomorrow. 07/29: Patient continues to improve. I have changed his IV Solu-Medrol to p.o. Solu-Medrol 40 mg prednisone. Anticipate taper over 4 weeks. Creatinine continues to improve. He probably has some degree of CKD. ANCA and KARTIK panel still pending. QuantiFERON gold was negative. AFB smears x2 are negative thus far. He is okay to go off of airborne precautions. Safe to transfer out of ICU at this point. Continue antibiotics for total 7 days. Will need follow-up CT chest imaging in 6 weeks. (2) Sarcoidosis, nodular type: (3) Multifocal pneumonia: (4) Secondary pulmonary hypertension: (5) Renal failure (ARF), acute on chronic: (6) Cavitating mass of upper lobe of left lung: Subjective Patient notes some streaky hemoptysis overnight. He had some abdominal pain this morning which improved with Tylenol. He thinks it is related to the fact that he has not been able to move much. Denies any fevers or chills. Saturating 94% on 15 L and 35% FiO2 Physical Exam Constitutional: WD/WN, vitals as above High flow nasal cannula in place Respiratory: normal respiratory effort, lungs clear to auscultation Cardiovascular: RRR, no murmur, no edema Gastrointestinal (Abdomen): normal bowel sounds, soft, nontender, no hepatosplenomegaly Neurologic: CN's II-XI intact bilaterally Psychiatric: A+Ox3, euthymic affect Lymphatic: no cervical or axillary lymphadenopathy Results & Data Vital Signs (Past 12 Hours) Vital Signs Temp Pulse Pulse Resp BP Pulse Ox 07/29/19 11:25 86 18 94 07/29/19 10:01 69 23 173/86 H 94 07/29/19 09:01 68 15 169/88 H 95 07/29/19 09:00 84 20 96 07/29/19 08:22 86 24 164/84 H 97 07/29/19 08:00 97.9 F 82 19 99 07/29/19 07:53 65 16 99 07/29/19 07:22 64 16 158/91 H 98 07/29/19 06:22 58 L 16 156/85 H 99 07/29/19 05:22 55 L 17 145/88 H 98 07/29/19 04:22 97.9 F 57 L 18 146/88 H 97 07/29/19 03:22 56 L 18 142/83 H 97 07/29/19 02:22 58 L 20 134/81 97 07/29/19 02:07 87 22 94 07/29/19 01:22 61 19 136/78 98 07/29/19 00:22 98.6 F 74 24 160/95 H 96 PG Care Time/CCT Total # of Minutes Spent Total Time Spent with Patient: Total time spent is greater than 50% in coordination of care (as documented) at patient's floor/unit and/or counseling patient:
[2019-07-29] MEDS: cefTRIAXone SODIUM 2,000 MG in DEXTROSE 5% 50 ML IV SCH (15:29)
[2019-07-29] MEDS: AZITHROMYCIN 500 MG in DEXTROSE 5% 250 ML IV SCH (15:29)
[2019-07-29] MEDS: carvediloL 6.25 MG TAB PO SCH (20:34)
[2019-07-29] MEDS ORDERED: carvediloL 6.25 MG TAB PO SCH (21:00)
[2019-07-30 05:44] LABS: Hematocrit (blood only) 43.7 % (42-52); Hemoglobin 14.8 g/dL (14.0-18.0); Mean Corpuscular Hemoglobin 28.6 pg (25-34); Mean Corpuscular Hgb Conc 33.9 g/dL (32-36); Mean Corpuscular Volume 84.4 fL (80-100); Mean Platelet Volume 10.5 fL (7.4-10.4); Platelet Count 223 K/uL (130-400); RDW Coefficient of Variation 14.8 % (11.5-14.5); RDW Standard Deviation 45.7 fL (36.4-46.3); Red Blood Count 5.18 M/uL (4.7-6.1); White Blood Count 6.65 K/uL (4.8-10.8)
[2019-07-30 06:15] LABS: BUN Creatinine Ratio 17.9 (10-20); Calcium 8.6 mg/dl (8.5-10.1); Creatinine Clr Calc Pharmacy 39.2 ml/min; Est GFR (African American) 35.8; Est GFR (Non-African American) 30.9; Potassium 3.6 mmol/L (3.5-5.1)
[2019-07-30] MEDS: ALBUT/IPRATROP 3MG/0.5MG NEB 3 ML VIAL NEB SCH ×2 (07:05→11:07)
[2019-07-30] MEDS: carvediloL 6.25 MG TAB PO SCH (07:22)
[2019-07-30] MEDS: HEPARIN SOD 5,000 UNIT/0.5 ML VIAL SC SCH ×2 (07:22→21:14)
[2019-07-30] MEDS: AMLODIPINE BESYLATE 5 MG TAB PO SCH (07:22)
--- NOTE | 2019-07-30 08:02 | Hospitalist Progress Note ---
Date of Service July 30, 2019 Assessment & Plan (1) Multifocal pneumonia: 58-year-old male with past medical history of sarcoidosis admitted with multifocal pneumonia and acute hypoxemic respiratory failure, now with continued monitoring of KRISTINA vs. CKD, continued HTN. Acute hypoxemic respiratory failure in the setting of multifocal pneumonia with cavitary lesion: - Pt with improvement symptomatically today; increased HFNC settings at flow 15, FiO2 40% with good saturation. Decrease in work of breathing as compared to his previous. Continue to wean oxygen as tolerated; pt not on home O2 at baseline and may need going home for a time. Still have not received records from outside hospital. - Will continue ceftriaxone for pneumonia; pt has completed azithromycin. Per Pulmonology now on PO prednisone 60mg daily with tapering over the next month. - QuantiFERON and AFBs negative. - negative for pulmonary renal syndrome. - Will need follow up chest CT in 6 weeks per pulmonology. Will also require follow up with PCP for both chronic sarcoid and transition of care from hospital. Also will need pulmonology establishment in [place]. KRISTINA, possibly on baseline CKD: - Pt's Cr 2.7 -> 3.13 -> 2.90 -> 2.24 -> 2.09 -> 2.27 this AM. - Unsure of pt's baseline at this time, however likely that this pt has some element of underlying CKD: has undiagnosed HTN and is pre-diabetic with Hgb A1c 5.9%. May also be an element of sleep apnea. Pt has pulmonary HTN on Echo. - Renally dosing medications; avoiding nephrotoxins. - Hydration PO; pt appears euvolemic. HTN: - Pt's BP 150s-160s/90s despite amlodipine 10 daily and Coreg 6.25 BID. Pt is without dizziness, headaches, CP, palpitations. - Have increased Coreg to 12.5 BID as of this afternoon and will continue to monitor BP. Monitor HR with increase in dosage. 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 - Will discuss further with pt, pt's , and with case management. Elevated troponin: - Resolved. - No personal history of heart attack or stroke, EKG without ST changes; shows sinus tachycardia. - Troponin 0.057 -> 0.065 -> 0.047 this admission. Likely due to demand from severe hypoxia and HTN urgency. No further intervention. - Pt without signs or symptoms of CA. - Echo this AM shows mild LVH, normal EF 60-65%, right ventricular systolic pressure elevation. FEN/GI: Regular diet DVT ppx: Heparin 5000u BID CODE STATUS: FULL DISPO: PCU telemetry Supervising Physician Co-Signing Physician Notes Attending attestation Pt seen and examined in concert with Dr. Velez. In agreement with the d ocumented findings as noted in the resident documentation with any exceptions or additions as noted here. Resting comfortably in bed on 15L HFNC with minimal SOB with ambulation on same. Improving cough and overall fatigue. On examination, S1/S2 nl RRR no MCG. mildly decreased breathsounds throughout with scattered bilateral wheezing. Abd NT/ND BS+ve. Minimal b/l LE edema Acute hypoxemic respiratory failure w/ multifocal PNA & sarcoidosis - d/c azithromycin (completed 5 days). continue ceftriaxone. Increased pred to 60mg. Monitor respiratory response. Pulmonology consultation appreciated KRISTINA without known renal baseline - increase of Cr with D/C of fluid support concerning for underlying hypertensive or otherwise nephropathy. Last BP ~6 wks ago was nl per patient (treated at that time for prostatitis) HTN - remains elevated - increase coreg to 12.5mg BID, continue amlodipine. Monitor HR. Else see resident documentation as noted. Subjective Pt overnight felt subjectively well however satted to 88% and HFNC settings adjusted to Flow 20 FiO2 45%. Pt now saturating well. Does not feel short of breath, no chest pain or palpitations. Some R sided abdominal he reports is intermittent, aggravated with lying in certain positions. No nausea, vomiting, diarrhea, constipation. No dysuria or hematuria. No polyuria. Review of Systems Constitutional: no fever, no chills and no malaise Respiratory: no cough and no dyspnea (currently on HFNC flow 20 FiO2 45%) Cardiovascular: no chest pain, no palpitations and no edema Gastrointestinal: + abdominal pain (right sided, into back); no constipation and no diarrhea/loose stools Genitourinary: no dysuria, no hematuria and no urinary urgency Physical Exam Constitutional: WD/WN, vitals as above Respiratory: normal respiratory effort, lungs clear to auscultation Cardiovascular: RRR, no murmur, no edema Gastrointestinal (Abdomen): normal bowel sounds, soft, nontender, no hepatosplenomegaly No CVA tenderness Musculoskeletal: R paraspinal hypertonicity and tenderness to palpation in thoracic and lumbar areas Skin: no rashes, warm and dry Psychiatric: A+Ox3, euthymic affect Results & Data Vital Signs (Past 12 Hours) Vital Signs Temp Pulse Pulse Resp BP Pulse Ox 07/30/19 07:06 92 07/30/19 07:05 95 H 20 94 07/30/19 06:24 36.7 C 61 19 157/82 H 95 07/30/19 03:58 36.6 C 18 165/88 H 92 07/30/19 02:30 60 18 92 07/29/19 23:59 65 07/29/19 23:43 36.6 C 77 22 160/85 H 92 07/29/19 22:09 83 18 88 L Laboratory Results Laboratory Results - last 24 hr 07/26/19 07/26/19 07/29/19 08:56 14:10 10:49 WBC RBC Hgb Hct MCV MCH MCHC RDW Std Deviation RDW Coeff of Tal Plt Count MPV Sodium Potassium Chloride Carbon Dioxide Anion Gap BUN Creatinine Est Cr Clr Drug Dosing Est GFR ( Amer) Est GFR (Non-Af Amer) BUN/Creatinine Ratio Glucose Calcium KARTIK Screen POSITIVE A KARTIK Titer 1:40 H KARTIK Pattern A ANCA Negative Glomerular Base Memb Ab <1.0 Urine Legionella Ag SEE NOTE 07/30/19 07/30/19 05:30 05:30 WBC 6.65 RBC 5.18 Hgb 14.8 Hct 43.7 MCV 84.4 MCH 28.6 MCHC 33.9 RDW Std Deviation 45.7 RDW Coeff of Tal 14.8 H Plt Count 223 MPV 10.5 H Sodium 144 Potassium 3.6 D Chloride 115 H Carbon Dioxide 24 Anion Gap 5.0 BUN 41 H Creatinine 2.27 H Est Cr Clr Drug Dosing 39.2 Est GFR ( Amer) 35.8 Est GFR (Non-Af Amer) 30.9 BUN/Creatinine Ratio 17.9 Glucose 87 Calcium 8.6 KARTIK Screen KARTIK Titer KARTIK Pattern ANCA Glomerular Base Memb Ab Urine Legionella Ag Medications Administered Current Medications Acetaminophen (Tylenol) 650 mg PO Q4H PRN PRN Reason: Pain or Fever Stop: 08/25/19 02:42 Last Admin: 07/30/19 16:26 Dose: 650 mg Documented by: Al Hydrox/Mg Hydrox/Simethicone (Maalox) 15 ml PO Q4H PRN PRN Reason: Dyspepsia Stop: 08/25/19 02:42 Albuterol (Duoneb) 3 ml NEB Q6R PRN PRN Reason: Shortness Of Breath Or Wheezing Stop: 08/29/19 12:59 Amlodipine Besylate (Norvasc) 10 mg PO QAM [facility] Stop: 08/26/19 08:59 Last Admin: 07/30/19 07:22 Dose: 10 mg Documented by: Azithromycin (Zithromax) 500 mg PO DAILY@1300 [facility] Stop: 08/02/19 12:59 Carvedilol (Coreg) 12.5 mg PO BID [facility] Stop: 08/29/19 20:59 Heparin Sodium (Porcine) (Heparin Sodium (Porcine)) 5,000 units SC Q12 [facility] Stop: 08/26/19 10:14 Last Admin: 07/30/19 07:22 Dose: 5,000 units Documented by: Ceftriaxone Sodium 2,000 mg/ (Dextrose) 70 mls @ 100 mls/hr IV DAILY@1400 [facility]; Protocol Stop: 08/02/19 13:59 Last Infusion: 07/30/19 15:18 Dose: Infused Documented by: Dextrose/Sodium Chloride (D5w And 1/2nss) 1,000 mls @ 80 mls/hr IV .[id number] [facility] Stop: 08/29/19 15:14 Last Admin: 07/30/19 16:15 Dose: 80 mls/hr Documented by: Magnesium Hydroxide (Milk Of Magnesia) 30 ml PO Q12H PRN PRN Reason: Constipation Stop: 08/25/19 02:42 Ondansetron HCl (Zofran) 4 mg IV Q6H PRN PRN Reason: Nausea Stop: 08/25/19 02:42 Polyethylene Glycol (Miralax Powder Packet) 17 gm PO DAILY PRN PRN Reason: Constipation Stop: 08/25/19 02:42 Prednisone (Prednisone) 60 mg PO DAILY [facility] Stop: 08/29/19 08:59 Last Admin: 07/30/19 11:21 Dose: 20 mg Documented by: Resident Activity Tracking Resident Involvement: Resident Care Provided Care Provided: Adult Hospital Medicine
[2019-07-30] MEDS ORDERED: predniSONE 20 MG TAB PO SCH (09:00)
[2019-07-30] MEDS: predniSONE 20 MG TAB PO SCH (11:21)
[2019-07-30] MEDS ORDERED: ALBUT/IPRATROP 3MG/0.5MG NEB 3 ML VIAL NEB PRN (12:01)
--- NOTE | 2019-07-30 12:04 | Pulmonology Progress Note ---
Date of Service July 30, 2019 Assessment & Plan (1) Acute hypoxemic respiratory failure: 07/26: Patient appears to have some degree of acute on chronic disease based on his CT of his chest. It would be nice if we could get the imaging from the [facility] where he had a bronchoscopy and a CT chest approximately 7 years ago. He does have bilateral hilar mediastinal adenopathy and upper lobe predominant nodules which would be consistent with sarcoidosis. He does have a cavity in his left upper lobe and occasionally sarcoid can cavitate. He is being evaluated for possible tuberculosis. QuantiFERON gold is pending. I also ordered for an AFB of his sputum. He does have infiltrative changes in the right middle lobe and left lower lobe superior subsegment which are likely related to pneumonia. I did order for procalcitonin. I have changed antibiotics from Zosyn to ceftriaxone and azithromycin. Generally, we do give steroids for sarcoidosis related exacerbations, but given the severity of his pneumonia, I would like to hold off on steroids at this present time. I have also ordered for an ANCA and an KARTIK panel on the off chance that we may be dealing with a pulmonary-renal syndrome. He does not have any significant active urinary sediment so I think this is unlikely. He also has some degree of pulmonary hypertension given his echocardiogram findings likely due to his underlying sarcoidosis and possibly from untreated sleep apnea. He would benefit from a sleep study as an outpatient and potentially a right heart cath as an outpatient when he is stabilized and discharged. He also needs follow-up for his sarcoidosis including eye exams, labs and pulm onary function testing. He would benefit from an outpatient deliverer merchandise. It seems like his home is in [place] and he will need to establish care down there. 07/27: We will hold off on bronchoscopy today given how hypoxemic he is. Continue IV Solu-Medrol 60 mg daily. His creatinine is improving slowly. He is able to make urine. I would hold on fluids or diuresis at this point. He a ppears to be fairly euvolemic. His procalcitonin was 0.36. I would still recommend continuing antibiotics at this time. Please obtain the records from [facility] regarding his bronchoscopy. QuantiFERON gold is still pending. It does not appear that the sputum culture was obtained nor was a sputum for AFB obtained. Troponin is downtrending. Continue high flow nasal cannula to maintain saturations above 92% for this particular patient. Please note that hypoxemia is the most potent pulmonary vasoconstrictor that there is and he does have underlying pulmonary hypertension likely secondary to sarcoidosis. 07/28/19: Patient is continued to improve today. He is still requiring high amounts of high flow oxygen and his FiO2 is down to 40%. Continue IV steroids and antibiotics. Awaiting records from [facility] regarding his review his bronchoscopy. QuantiFERON gold and AFB smears are pending. I have ordered for third AFB smear today. Continue high flow oxygen and avoid hypoxemia of less than 90%. Creatinine continues to improve. Autoimmune serologies pending. His sodium is a bit elevated likely due to insensible free water losses related to his tachypnea. He is taking in good p.o. intake now and this should correct on its own. I would prefer that he stay in the ICU for today with possible transfer tomorrow. 07/29: Patient continues to improve. I have changed his IV Solu-Medrol to p.o. Solu-Medrol 40 mg prednisone. Anticipate taper over 4 weeks. Creatinine continues to improve. He probably has some degree of CKD. ANCA and KARTIK panel still pending. QuantiFERON gold was negative. AFB smears x2 are negative thus far. He is okay to go off of airborne precautions. Safe to transfer out of ICU at this point. Continue antibiotics for total 7 days. Will need follow-up CT chest imaging in 6 weeks. 07/30: All 3 AFB sputum smears have been negative. He did have some mildly increased hypoxemia overnight and had to have his high flow increased to 20 L and 45% FiO2. He is currently on 45% FiO2 and 50 L. He is comfortable. Recommend weaning the oxygen to maintain sats above 90% at this point. I am starting him on 60 mg of p.o. prednisone today with a taper over the next 4 weeks. His creatinine did worsen a bit today. Again, likely has some degree of CKD. Old records would be of benefit. ANCA and KARTIK panel still pending. (2) Sarcoidosis, nodular type: (3) Multifocal pneumonia: (4) Secondary pulmonary hypertension: (5) Renal failure (ARF), acute on chronic: (6) Cavitating mass of upper lobe of left lung: Subjective Relatively unchanged from yesterday. Patient is now in a regular hospital room. Denies any chest pain, fevers chills or night sweats. He still has some cough with occasional small episodes of hemoptysis. Physical Exam Constitutional: Patient sitting up in bed. Has a high flow nasal cannula in place. Appears comfortable. Respiratory: normal respiratory effort, lungs clear to auscultation Cardiovascular: RRR, no murmur, no edema Gastrointestinal (Abdomen): normal bowel sounds, soft, nontender, no hepatosplenomegaly Psychiatric: A+Ox3, euthymic affect Results & Data Vital Signs (Past 12 Hours) Vital Signs Temp Pulse Resp BP BP Pulse Ox 07/30/19 11:58 97.5 F L 64 21 151/84 H 95 07/30/19 11:08 79 24 90 07/30/19 07:06 92 07/30/19 07:05 95 H 20 94 07/30/19 06:24 98.1 F 61 19 157/82 H 95 07/30/19 03:58 97.9 F 18 165/88 H 92 07/30/19 02:30 60 18 92 PG Care Time/CCT Total # of Minutes Spent Total Time Spent with Patient: Total time spent is greater than 50% in coordination of care (as documented) at patient's floor/unit and/or counseling patient:
[2019-07-30] MEDS: AZITHROMYCIN 500 MG in DEXTROSE 5% 250 ML IV SCH (12:50)
[2019-07-30 14:13] LABS: ANCA Screen Negative (Negative); Anti Nuclear Antibody Screen POSITIVE (NEGATIVE)
[2019-07-30 14:32] LABS: ANA Titer 1:40 titer
[2019-07-30] MEDS: cefTRIAXone SODIUM 2,000 MG in DEXTROSE 5% 50 ML IV SCH (14:36)
[2019-07-30] MEDS: D5W AND 1/2NSS 1,000 ML IV SCH (16:15)
[2019-07-30] MEDS: ACETAMINOPHEN 325 MG TAB PO PRN (16:26)
--- NOTE | 2019-07-30 16:58 | Billing Data ---
Date of Service July 27, 2019 Coding Level of Care Code Critical Care mins
--- NOTE | 2019-07-30 17:00 | Billing Data ---
Date of Service July 28, 2019 Coding Level of Care Code Critical Care mins
--- NOTE | 2019-07-30 17:01 | Billing Data ---
Date of Service July 29, 2019 Coding Level of Care Code 40767 Subseq Hosp Care Lvl 1
[2019-07-30] MEDS: carvediloL 12.5 MG TAB PO SCH (21:14)
[2019-07-31] MEDS: ACETAMINOPHEN 325 MG TAB PO PRN (00:20)
[2019-07-31] MEDS: D5W AND 1/2NSS 1,000 ML IV SCH ×2 (04:45→16:26)
[2019-07-31 06:13] LABS: Hemoglobin 14.2 g/dL (14.0-18.0); Mean Corpuscular Hemoglobin 28.6 pg (25-34); Mean Corpuscular Hgb Conc 33.8 g/dL (32-36); Mean Corpuscular Volume 84.5 fL (80-100); Mean Platelet Volume 11.2 fL (7.4-10.4); Platelet Count 285 K/uL (130-400); RDW Coefficient of Variation 14.4 % (11.5-14.5); RDW Standard Deviation 43.9 fL (36.4-46.3); Red Blood Count 4.97 M/uL (4.7-6.1)
[2019-07-31 06:33] LABS: BUN Creatinine Ratio 19.6 (10-20); Calcium 8.8 mg/dl (8.5-10.1); Creatinine Clr Calc Pharmacy 44.8 ml/min; Est GFR (Non-African American) 36.2
[2019-07-31] MEDS: carvediloL 12.5 MG TAB PO SCH ×2 (08:16→20:17)
[2019-07-31] MEDS: AMLODIPINE BESYLATE 5 MG TAB PO SCH (08:17)
[2019-07-31] MEDS: predniSONE 20 MG TAB PO SCH (08:17)
[2019-07-31] MEDS: HEPARIN SOD 5,000 UNIT/0.5 ML VIAL SC SCH ×2 (08:17→20:17)
[2019-07-31] MEDS ORDERED: AZITHROMYCIN 250 MG TAB PO SCH (13:00)
[2019-07-31] MEDS: cefTRIAXone SODIUM 2,000 MG in DEXTROSE 5% 50 ML IV SCH (14:04)
--- NOTE | 2019-07-31 14:55 | Pulmonology Progress Note ---
Date of Service July 31, 2019 Assessment & Plan (1) Acute hypoxemic respiratory failure: 07/26: Patient appears to have some degree of acute on chronic disease based on his CT of his chest. It would be nice if we could get the imaging from the [facility] where he had a bronchoscopy and a CT chest approximately 7 years ago. He does have bilateral hilar mediastinal adenopathy and upper lobe predominant nodules which would be consistent with sarcoidosis. He does have a cavity in his left upper lobe and occasionally sarcoid can cavitate. He is being evaluated for possible tuberculosis. QuantiFERON gold is pending. I also ordered for an AFB of his sputum. He does have infiltrative changes in the right middle lobe and left lower lobe superior subsegment which are likely related to pneumonia. I did order for procalcitonin. I have changed antibiotics from Zosyn to ceftriaxone and azithromycin. Generally, we do give steroids for sarcoidosis related exacerbations, but given the severity of his pneumonia, I would like to hold off on steroids at this present time. I have also ordered for an ANCA and an KARTIK panel on the off chance that we may be dealing with a pulmonary-renal syndrome. He does not have any significant active urinary sediment so I think this is unlikely. He also has some degree of pulmonary hypertension given his echocardiogram findings likely due to his underlying sarcoidosis and possibly from untreated sleep apnea. He would benefit from a sleep study as an outpatient and potentially a right heart cath as an outpatient when he is stabilized and discharged. He also needs follow-up for his sarcoidosis including eye exams, labs and pulm onary function testing. He would benefit from an outpatient dna sequencing associate. It seems like his home is in [place] and he will need to establish care down there. 07/27: We will hold off on bronchoscopy today given how hypoxemic he is. Continue IV Solu-Medrol 60 mg daily. His creatinine is improving slowly. He is able to make urine. I would hold on fluids or diuresis at this point. He a ppears to be fairly euvolemic. His procalcitonin was 0.36. I would still recommend continuing antibiotics at this time. Please obtain the records from [facility] regarding his bronchoscopy. QuantiFERON gold is still pending. It does not appear that the sputum culture was obtained nor was a sputum for AFB obtained. Troponin is downtrending. Continue high flow nasal cannula to maintain saturations above 92% for this particular patient. Please note that hypoxemia is the most potent pulmonary vasoconstrictor that there is and he does have underlying pulmonary hypertension likely secondary to sarcoidosis. 07/28/19: Patient is continued to improve today. He is still requiring high amounts of high flow oxygen and his FiO2 is down to 40%. Continue IV steroids and antibiotics. Awaiting records from [facility] regarding his review his bronchoscopy. QuantiFERON gold and AFB smears are pending. I have ordered for third AFB smear today. Continue high flow oxygen and avoid hypoxemia of less than 90%. Creatinine continues to improve. Autoimmune serologies pending. His sodium is a bit elevated likely due to insensible free water losses related to his tachypnea. He is taking in good p.o. intake now and this should correct on its own. I would prefer that he stay in the ICU for today with possible transfer tomorrow. 07/29: Patient continues to improve. I have changed his IV Solu-Medrol to p.o. Solu-Medrol 40 mg prednisone. Anticipate taper over 4 weeks. Creatinine continues to improve. He probably has some degree of CKD. ANCA and KARTIK panel still pending. QuantiFERON gold was negative. AFB smears x2 are negative thus far. He is okay to go off of airborne precautions. Safe to transfer out of ICU at this point. Continue antibiotics for total 7 days. Will need follow-up CT chest imaging in 6 weeks. 07/30: All 3 AFB sputum smears have been negative. He did have some mildly increased hypoxemia overnight and had to have his high flow increased to 20 L and 45% FiO2. He is currently on 45% FiO2 and 50 L. He is comfortable. Recommend weaning the oxygen to maintain sats above 90% at this point. I am starting him on 60 mg of p.o. prednisone today with a taper over the next 4 weeks. His creatinine did worsen a bit today. Again, likely has some degree of CKD. Old records would be of benefit. ANCA and KARTIK panel still pending. 07/31: Patient's KARTIK came back weakly positive at 1:40. ANCA was negative. I have ordered for a double-stranded DNA, anti-Moran and anti-Miranda/tax consultant antibodies. A 1:40 KARTIK is very nonspecific especially in light of his acute inflammation. He continues to have ongoing elevation in his creatinine but it has improved from yesterday. Again suspect chronic kidney disease. His hypoxemia has improved substantially and he is currently on 3 L of nasal cannula. Recommend continue to wean the supplemental oxygen. Hopefully, he will not require any supplemental oxygen upon discharge. Anticipate discharge in the next 1 to 2 days. I would recommend weaning the prednisone 10 mg every week. He needs follow-up with a dna sequencing associate and full pulmonary function testing as an outpatient. He will also need a follow-up CT in 6 to 8 weeks given the nodular opacities in the cavitary lesion in the left upper lobe. Again, these are likely sequelae of the sarcoidosis. Complete antibiotics once 7 days have been administered. Pulmonary will sign off the case and we are happy to see him or answer any questions should any issues arise. (2) Sarcoidosis, nodular type: (3) Multifocal pneumonia: (4) Secondary pulmonary hypertension: (5) Renal failure (ARF), acute on chronic: (6) Cavitating mass of upper lobe of left lung: Subjective Patient continues to do very well. He is currently on 3 L of oxygen saturating around 95%. His cough has improved substantially. His appetite is also improved. He is able to ambulate around the room with minimal symptoms. He had a bowel movement today. He denies any nausea or vomiting. Physical Exam Constitutional: Patient sitting up in bed. Has a high flow nasal cannula in place. Appears comfortable. Respiratory: normal respiratory effort, lungs clear to auscultation Cardiovascular: RRR, no murmur, no edema Gastrointestinal (Abdomen): normal bowel sounds, soft, nontender, no hepatosplenomegaly Psychiatric: A+Ox3, euthymic affect Results & Data Vital Signs (Past 12 Hours) Vital Signs Temp Pulse Pulse Resp BP Pulse Ox 07/31/19 11:38 97.5 F L 62 19 163/85 H 95 07/31/19 08:00 65 07/31/19 07:32 97.9 F 92 H 19 176/90 H 92 07/31/19 04:13 98.8 F 71 22 165/90 H 96 I personally reviewed the patient's pertinent labs, chest imaging and notes. PG Care Time/CCT Total # of Minutes Spent Total Time Spent with Patient: Total time spent is greater than 50% in coordination of care (as documented) at patient's floor/unit and/or counseling patient:
--- NOTE | 2019-07-31 16:00 | Hospitalist Progress Note ---
Date of Service July 31, 2019 Assessment & Plan (1) Multifocal pneumonia: 58-year-old male with past medical history of sarcoidosis admitted on 07/26/19 with multifocal pneumonia and acute hypoxemic respiratory failure. Acute hypoxemic respiratory failure in the setting of multifocal pneumonia with cavitary lesion: - Pt reports improved ease of breathing; currently satting 95% on 3L NC; continue to wean as tolerated - pulm following, appreciate recommendations - pt has completed azithromycin course; on day 6 of 7 of ceftriaxone. - continue prednisone 60mg, PO daily; taper by 10mg/ week over the course of the next 6 weeks - QuantiFERON and AFBs negative. - patient's KARTIK was weakly +; ANCA neg; anti-ds DNA, anti-ramirez, anti-Miranda pending. - Will need follow up chest CT in 6 weeks for surveillance of cavitary lesions - Will also require follow up with PCP for both chronic sarcoid and transition of care from hospital. Also will need pulmonology establishment in [place]. KRIST[place], likely on baseline CKD: - Cr 1.99 today, down from 2.27 - baseline kidney function unknown; awaiting records. high suspicion of underlying CKD - Renally dosing medications; avoiding nephrotoxins. 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 -case management involved Elevated troponin: - elevated on admission to 0.065, trended down - No personal history of heart attack or stroke, EKG without ST changes - Likely due to demand from severe hypoxia and HTN urgency. No further intervention. - Echo showed mild LVH, which suggests longstanding HTN, normal EF 60-65%, right ventricular systolic pressure elevation (likely secondary to lung disease) FEN/GI: Regular diet DVT ppx: Heparin 5000u BID CODE STATUS: FULL DISPO: PCU telemetry Supervising Physician Co-Signing Physician Notes Attending attestation Pt seen and examined in concert with Dr. Pinto. In agreement with the documented findings as noted in the resident documentation with any exceptions or additions as noted here. Significant improvement in respiratory effort. Cough persisting. On examination, S1/S2 nl RRR no MCG. Decreased breath sounds throughout, minimal scattered bilateral wheezing. Abd NT/ND BS+ve. Minimal b/l LE edema Acute hypoxemic respiratory failure w/ multifocal PNA & sarcoidosis - continue ceftriaxone and prednisone 60mg. Pulmonology consultation appreciated K[place]ST[place] without known renal baseline - improved Cr. Encourage PO hydration, trend BMP HTN - remains elevated - Stable at 160s/80s on present regimen. Continue coreg and amlodipine, consider increase coreg to 25 in AM. Monitor HR. Last BP ~6 wks ago was nl per patient (treated at that time for prostatitis) Else see resident documentation as noted. Subjective no acute events overnight. patient reports breathing much improved from yesterday. 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 Review of Systems Review of Systems: All systems reviewed & are unremarkable except as noted in HPI & below Physical Exam Constitutional: WD/WN, vitals as above Eyes: PERRL, conjunctivae normal, anicteric sclerae ENMT: external ear and nose normal, oropharynx normal Neck: trachea midline, no thyromegaly Respiratory: normal respiratory effort, lungs clear to auscultation no labored breathing Auscultation: no crackles, no rales, no rhonchi, no wheezes and no pleural rub Cardiovascular: RRR, no murmur, no edema Heart Sounds: normal S1 and normal S2 Gastrointestinal (Abdomen): normal bowel sounds, soft, nontender, no hepatosplenomegaly Skin: no rashes, warm and dry Neurologic: moves all extremities; no focal motor deficits Psychiatric: A+Ox3, euthymic affect Results & Data Vital Signs (Past 12 Hours) Vital Signs Temp Pulse Pulse Resp BP Pulse Ox 07/31/19 15:48 36.4 C L 67 20 165/86 H 95 07/31/19 15:28 67 07/31/19 11:38 36.4 C L 62 19 163/85 H 95 07/31/19 08:00 65 07/31/19 07:32 36.6 C 92 H 19 176/90 H 92 07/31/19 04:13 37.1 C 71 22 165/90 H 96 Resident Activity Tracking Resident Involvement: Resident Care Provided Care Provided: Adult Hospital Medicine
[2019-08-01] MEDS: carvediloL 12.5 MG TAB PO SCH ×2 (08:08→20:55)
[2019-08-01] MEDS: AMLODIPINE BESYLATE 5 MG TAB PO SCH (08:08)
[2019-08-01] MEDS: predniSONE 20 MG TAB PO SCH (08:09)
[2019-08-01] MEDS: HEPARIN SOD 5,000 UNIT/0.5 ML VIAL SC SCH ×2 (08:09→20:56)
[2019-08-01 11:25] LABS: Creatinine Clr Calc Pharmacy 45.3 ml/min; Est GFR (Non-African American) 37.1
[2019-08-01] MEDS: cefTRIAXone SODIUM 2,000 MG in DEXTROSE 5% 50 ML IV SCH (13:36)
--- NOTE | 2019-08-01 16:36 | History & Physical Bridge Note ---
Date of Service August 01, 2019 History & Physical Bridge Note I have examined the patient, reviewed the History & Physical and in the interval since the performance of the History & Physical I have noted the following changes of clinical significance: no changes noted Supervising Physician Co-Signing Physician Notes Attending documentation Continued improvement in overall respiratory status. HTN still borderline unco ntrolled. Tolerating O2 with ambulation. On examination, S1/S2 nl RRR no MCG. Decreased breath sounds throughout. Abd NT/ND BS+ve. Acute hypoxemic respiratory failure w/ multifocal PNA & sarcoidosis - completed abx inpatient. Prolonged prednisone taper to resolution. Outpatient follow up with PCP and Pulmonology in [place]STINA without known renal baseline - improving Cr without supplemental fluids. Will require follow up to stability and potential evaluation for cause based on condition and response of HTN HTN - remains elevated - Stable at 160s/80s on present regimen. Continue coreg and amlodipine on discharge. Last BP ~6 wks prior to admission and was nl per patient (treated at that time for prostatitis) Else see resident documentation as noted.
--- NOTE | 2019-08-01 16:52 | Hospitalist Progress Note ---
Date of Service August 01, 2019 Assessment & Plan (1) Multifocal pneumonia: 58-year-old male with past medical history of sarcoidosis admitted on 07/26/19 with multifocal pneumonia and acute hypoxemic respiratory failure. Acute hypoxemic respiratory failure in the setting of multifocal pneumonia with cavitary lesion: - Pt reports improved ease of breathing; currently satting 90% on room air - 2 step test performed today: patient needs 2L oxygen via NC with ambulation; child welfare caseworker working to set up portable oxygen though [facility] for his anticipated travel back to [place] on 08/02 - pt has completed azithromycin and ceftriaxone course for his PNA - script provided for prednisone taper according to pulmonary recommendation - patient's KARTIK was weakly +; ANCA neg; anti-ds DNA, anti-ramirez, anti-Miranda pending. - Will need follow up chest CT in 6 weeks for surveillance of cavitary lesions. QuantiFERON and AFBs negative. - Will also require follow up with PCP for both chronic sarcoid and transition of care from hospital. Also will need pulmonology follow up in [place]. KRISTINA, likely on baseline CKD: - Cr 1.95 today, down from 1.99 on 07/31. Trend daily. - baseline kidney function unknown; awaiting records. high suspicion of underlying CKD - Renally dosing medications; avoiding nephrotoxins. 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 Elevated troponin: - elevated on admission to 0.065, trended down - No personal history of heart attack or stroke, EKG without ST changes - Likely due to demand from severe hypoxia and HTN urgency. No further intervention. - Echo showed mild LVH, which suggests longstanding HTN, normal EF 60-65%, right ventricular systolic pressure elevation (likely secondary to lung disease) FEN/GI: Regular diet DVT ppx: Heparin 5000u BID CODE STATUS: FULL DISPO: PCU telemetry Supervising Physician Co-Signing Physician Notes Attending attestation Pt seen and examined in concert with Dr. Pinto. In agreement with the documented findings as noted in the resident documentation with any exceptions or additions as noted here. Continued improvement in overall respiratory status. HTN still borderline uncontrolled. Tolerating O2 with ambulation. Bedside ambulatory stability evaluation performed by Dr. Pinto without abnormality and with stable gait and transfer. On examination, S1/S2 nl RRR no MCG. Decreased breath sounds throughout. Abd NT/ND BS+ve. Acute hypoxemic respiratory failure w/ multifocal PNA & sarcoidosis - completed abx inpatient. Prolonged prednisone taper to resolution. Outpatient follow up with PCP and Pulmonology in [place]STINA without known renal baseline - improving Cr without supplemental fluids. Will require follow up to stability and potential evaluation for cause based on condition and response of HTN HTN - remains elevated - Stable at 160s/80s on present regimen. Continue coreg and amlodipine on discharge. Last BP ~6 wks prior to admission and was nl per patient (treated at that time for prostatitis) Else see resident documentation as noted. Subjective no acute events overnight. patient reports breathing much improved. his is driving to [place] from [place] and will arrive at 8pm on 08/01. She will drive him back to [place] on 08/02 pending home oxygen is able to be set up Review of Systems Review of Systems: All systems reviewed & are unremarkable except as noted in HPI & below Physical Exam Constitutional: WD/WN, vitals as above Eyes: PERRL, conjunctivae normal, anicteric sclerae ENMT: external ear and nose normal, oropharynx normal Neck: trachea midline, no thyromegaly Respiratory: normal respiratory effort, lungs clear to auscultation no labored breathing Auscultation: no crackles, no rales, no rhonchi, no wheezes and no pleural rub Cardiovascular: RRR, no murmur, no edema Heart Sounds: normal S1 and normal S2 Gastrointestinal (Abdomen): normal bowel sounds, soft, nontender, no hepatosplenomegaly Skin: no rashes, warm and dry Neurologic: moves all extremities; no focal motor deficits Psychiatric: A+Ox3, euthymic affect Results & Data Vital Signs (Past 12 Hours) Vital Signs Temp Pulse Pulse Pulse Pulse Pulse Pulse 08/01/19 15:51 36.5 C 66 08/01/19 15:12 36.5 C 66 08/01/19 11:32 36.5 C 67 08/01/19 10:12 86 91 H 68 69 08/01/19 08:20 56 L 08/01/19 07:47 36.5 C 62 Resp Resp Resp Resp Resp BP BP 08/01/19 15:51 16 183/90 H 160/84 H 08/01/19 15:12 16 183/90 H 160/84 H 08/01/19 11:32 18 149/83 H 08/01/19 10:12 20 20 18 18 08/01/19 08:20 08/01/19 07:47 19 173/90 H Pulse Ox Pulse Ox Pulse Ox Pulse Ox Pulse Ox 08/01/19 15:51 90 08/01/19 15:12 90 08/01/19 11:32 96 08/01/19 10:12 93 85 L 90 94 08/01/19 08:20 08/01/19 07:47 97 Resident Activity Tracking Resident Involvement: Resident Care Provided Care Provided: Adult Hospital Medicine
[2019-08-01] MEDS: ACETAMINOPHEN 325 MG TAB PO PRN (20:56)
[2019-08-02 07:23] LABS: BUN Creatinine Ratio 18.1 (10-20); Calcium 9.3 mg/dl (8.5-10.1); Creatinine Clr Calc Pharmacy 43.5 ml/min; Est GFR (Non-African American) 35.3
[2019-08-02] MEDS: predniSONE 20 MG TAB PO SCH (08:07)
[2019-08-02] MEDS: carvediloL 12.5 MG TAB PO SCH (08:07)
[2019-08-02] MEDS: AMLODIPINE BESYLATE 5 MG TAB PO SCH (08:08)
[2019-08-02] MEDS: HEPARIN SOD 5,000 UNIT/0.5 ML VIAL SC SCH (08:10)
--- NOTE | 2019-08-02 09:47 | Discharge Summary ---
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 He states he began having cold symptoms since July 22 which initially began with subjective fevers and chills then progressed to a dry cough. He also complains of worsening exertional dyspnea, can't perform his usual work duties like unloading the truck, and states he had to take 2 breaks while walking from his truck to the front door here in the parking lot tonight. This is unusual for him. He has been self medicating with robitussin and natividad selzer. Past medical history significant for a diagnosis of sarcoidosis about 2 years ago which was incidentally found after a bronchoscopy in an outside hospital while he was admitted for pneumonia. His PCP is Dr. Quezada in [facility] and he has follow-up scheduled with him on August 05. He does not follow with a director of education and training. He does not take any chronic medications although recently was diagnosed with prostatitis and what sounds like urinary retention and prescribed an antibiotic and possibly Flomax. He is finished his antibiotic and notes his urination is now very brisk and he is urinating once an hour. He also complains of bilateral lower extremity swelling which has improved since being here in the ED for several hours. He denies any lower extremity pain. He denies any personal history of clots. Endorses chest tightness, polyuria, subjective fevers, bilateral leg swelling, but denies chest pain, abdominal pain, loose stools, or dysuria. Denies recent exotic travel. Past medical history: Sarcoidosis diagnosed 2 years ago by bronchoscopy at outside hospital. Past surgical history: Denies Family history: Significant for multiple female family members with breast cancer. Denies family history of kidney disease, heart disease, or stroke. 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 He resides in [place] with his and son. He is a never smoker, denies alcohol or drug use. ED course: DuoNeb, Decadron, fluid boluses and Zosyn begun. 10 L on oxygen mask. Admission Exam Per Admitting Provider Vitals noted and within normal limits with the exception of elevated blood pressure 169/107, elevated pulse 110, oxygenating 93% on 10 L via oxymask. GENERAL: Awake, alert to person, place, and time, nontoxic-appearing, in no distress. HENT: Normocephalic, atraumatic. Oxymask in place. Mucus membranes appear dry. EYES: Normal conjunctiva. Sclera non-icteric. EOMI. NECK: Supple. Full range of motion. No JVD. RESPIRATORY: Diffuse crackles and wheezing bilaterally. Increased work of breathing. Able to speak in full sentences. CARDIAC: Sinus tachycardia. Extremities warm and well perfused, ABDOMEN: Soft, non-distended. No tenderness to palpation in all four quadrants. No rebound or guarding. No masses. Bowel sounds are normal. No CVA tenderness. LOWER EXTREMITIES: Inspection of calves reveal equal size bilaterally. They are non-tender. Trace edema. No discoloration. NEURO: No gross focal motor deficits noted. Sensation in tact. CN II-XII grossly in tact. . SKIN: Rash not present. No jaundice noted. Significant lesions not present. PSYCH: Appropriate mood and affect. Cooperative. Principal Diagnosis Community-Acquired Pneumonia, Sarcoidosis, KRISTINA on CKD, HTN urgency Discharge Exam Constitutional WD/WN, vitals as above Respiratory normal respiratory effort, lungs clear to auscultation Cardiovascular RRR, no murmur, no edema Gastrointestinal (Abdomen) normal bowel sounds, soft, nontender, no hepatosplenomegaly Skin no rashes, warm and dry Psychiatric A+Ox3, euthymic affect Discharge Data Allergies Allergy/AdvReac Type Severity Reaction Status Date / Time No Known Allergies Allergy Verified 07/25/19 22:39 Consultations 07/25/19 23:47 ED Decision to Admit Stat 07/26/19 02:43 Consult Case Management - Discharge Planning Routine Consult Pulmonology Routine 07/27/19 09:11 Consult Web Analytics Developer Routine Ordered Studies 07/25/19 22:51 CT chest wo con Urgent 07/26/19 02:43 US venous doppler LE BI Routine 07/27/19 10:09 US duplex renal artery Routine US renal/blad retro comp Urgent Hospital Course (1) Multifocal pneumonia: 58-year-old male with past medical history of sarcoidosis admitted on 07/26/19 with multifocal pneumonia and acute hypoxemic respiratory failure, found to have uncontrolled HTN and KRISTINA on CKD. Acute hypoxemic respiratory failure in the setting of multifocal pneumonia with cavitary lesion: - Pt saturating on room air to 90% at rest; requires ambulatory 2LNC O2. [facility] has arranged his home oxygen. - Pt will perform prednisone taper 50->40->30->20->10->0 at one week intervals. - Patient's KARTIK was weakly +; ANCA neg; anti-ds DNA, anti-ramirez, anti-Miranda pending. Pt aware and has printed records of this visit for PCP in [place]. - Pt for follow up with PCP for both chronic sarcoid and transition of care from hospital. Also will need Pulmonology follow up in [place]. - Will need follow up chest CT in 6 weeks for surveillance of cavitary lesions. QuantiFERON and AFBs negative. - Pt given paper copy of hospital course. KRISTINA, likely on baseline CKD: - Cr 2.03 today, though baseline kidney function is unknown suspect underlying CKD likely due to uncontrolled HTN. - Pt would likely benefit from outpatient sleep study. May also require further hypertensive management by PCP. - Treatment of HTN as below. HTN: - BP above goal at 152/91, though close to goal. - In outpatient setting have given prescriptions for Coreg 12.5mg BID and amlodipine 10mg daily. 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 Elevated troponin: - Elevated on admission to 0.065, trended down. - No personal history of heart attack or stroke, EKG without ST changes. - Echo showed mild LVH, which suggests longstanding HTN, normal EF 60-65%, right ventricular systolic pressure elevation (likely secondary to lung disease). - Likely due to demand from severe hypoxia and HTN urgency. No further intervention. Total Time Total Time Spent Total Time Spent (In Minutes): <30 Discharge Plan Discharge Items Patient Disposition: Home - Self-Care Reason For Visit: HYPOXIA, PNEUMONIA Discharge Diagnosis: Pneumonia, acute kidney injury, high blood pressure, sarcoidosis Activity: Resume your previous activity Non-emergency contact: Primary Care Provider and Casing Crew Call non-emergency contact if: you have any medication questions Follow-up/Referrals: PCP,NO [Primary Care Provider] - Diet: Regular Addtl Attending Provider Instructions: You were hospitalized at [facility] for evaluation of shortness of breath and found to have pneumonia. You were treated with antibiotics, prednisone, and oxygen therapy during your hospital stay. We arranged for you to use portable oxygen, 2L via nasal cannula when walking, upon your hospital discharge. You should continue to use the oxygen while walking until you see a primary care physician. We advise you to see a primary care physician within one week. You also need to establish with a director of education and training given your history of sarcoidosis. Please continue to take prednisone taper as directed: 50mg daily for 1 week, 40mg daily for 1 week, 30mg daily for 1 week, 20mg daily, for 1 week, 10mg daily for 1 week. A script for your prednisone was provided to you. You should have a repeat cat scan of your chest in 6 weeks time to monitor a cavity lesion that was visualized during your hospital stay. Your primary care doctor can help you set this up. Blood work was drawn during your hospital stay, but the results were not available by the time you were discharge. You will be contacted with these results over the phone. Your blood pressure was elevated while in the hospital. Please continue to take Carvedilol 12.5mg twice daily, and Amlodipine 10mg daily. You were found to have reduced kidney function while in the hospital. We suspect that your kidney function has been reduced for quite some time prior to this hospitalization. Please avoid taking ibuprofen or other NSAID agents for pain - we prefer you use Tylenol if needed. Please discuss your kidney function with your primary care doctor. Pending Studies at Discharge: Yes Stand-Alone Forms: My [facility] [email or web address], Work/School Release (Inpt), Smoking Cessation Medications and DC Order Prescriptions: New carvedilol 12.5 mg Tablet 12.5 mg PO BID 30 Days Qty: 60 RF: 0 amlodipine [Norvasc] 5 mg Tablet 10 mg PO QAM 30 Days Qty: 30 RF: 0 prednisone 10 mg tablet 10 mg PO DAILY Qty: 105 RF: 0 Continued Natividad-[place] Plus Cold (PE) 2-7.8-325 mg Tablet, Effervescent 0 ea PO DIRECTED PRN (Reason: Cold Symptoms) RF: 0 Discontinued Robitussin Cough-Chest [place] DM 5-100 mg/5 mL Liquid 10 ml PO DIRECTED PRN (Reason: Cold Symptoms) RF: 0 Discharge Orders: Discharge Order (Routine); Ordered 08/02/19 Ordered By: Carri Velez Admission Data Admit Date/Time: 07/26/19 01:25 Attending Provider: Willem Leblanc Admit Provider: Anni Thomas Primary Care Provider: PCP,NO Other Providers: Tobin Lepe ; Christiano Tellez ; Pablo Hubbard ; Tuan Blount Other Interventions: Discharge Summary Assessment (RN) Last Done: 08/02/19 13:13 DC Date/Time DO NOT enter until pt leaves facility: 08/02/19 15:20 Supervising Physician Co-Signing Physician Notes I personally examined the patient and verified all covarrubias points of history and exam, discussed case, and agree with decision making with Dr Velez. feeling better and ready to go home. no new issues. O2 set up. stable for home. no questions and understands situation. Acute hypoxemic respiratory failure w/ multifocal PNA & sarcoidosis - completed abx inpatient. Prolonged prednisone taper as outpt. for f/u w PCP and pulmonary in short order after discharge. KRISTINA without known renal baseline -creatinine improved some -- stable for outpt f/u. HTN -Continue coreg and amlodipine on discharge. outpt f/u and PCP management stable for discharge, otherwise as above Resident Activity Tracking Resident Involvement: Resident Care Provided Care Provided: Adult Hospital Medicine
--- NOTE | 2019-08-02 18:01 | Billing Data ---
Date of Service August 02, 2019 Coding Level of Care Code D/C Day Management <30 mins
[2019-08-06 09:49] LABS: Anti-DNASE B Ab <95 U/mL (< 301); JO 1 Antibody <1.0 NEG AI (<1.0 NEG); RNP Antibody <1.0 NEG AI (<1.0 NEG); Sm Antibody <1.0 NEG AI (<1.0 NEG)
== END 2019-08-02 15:20 | disposition home or self-care (01) | DRG 193 ==
LOC: ED 22:10 → SUATTDRO 07-26 01:25 → 2S 07-26 01:25 → 1E 07-26 16:14 → 2S 07-29 14:43 → 4W 08-01 17:49